=== PATIENT | female | born 1925 | race Caucasian/White ===

== ENCOUNTER 2016-05-31 15:00 | Inpatient (IN) | payer MEDICARE, OTHER ==
[2016-05-31] VITALS (7 sets, daily range): BP systolic 130–182; BP diastolic 70–89; PULSE 70–80; RESP 20–42; O2SAT 94–98
[~2016-05-31] VITALS: Ht 165.1 cm; Wt 62.7 kg
[~2016-05-31 15:00] MED LIST: CARV25T PO; COU1 PO; COU25 PO; HYDR1TAB PO; LATA2.5D5 OP; PRA20 PO; [UNRECOGNIZED DRUG - CODE] PO
[2016-05-31] MEDS ORDERED: Ondansetron 2 mg/mL 2 mL Inj IVPUSH ONE (15:35)
[2016-05-31] MEDS ORDERED: 0.9% Sodium Chloride 1,000 ML IV ONE (15:35)
[2016-05-31 15:46] LABS: BASOPHILS % (AUTO) 0.3 % (0-3); EOSINOPHILS % (AUTO) 0.1 % (0-5); MONOCYTES % (AUTO) 6.6 % (4-12); Mean Corpuscular Hemoglobin 30.3 pg (27.0-35.0); Mean Corpuscular Volume 95.9 fL (81-100); NEUTROPHILS % (AUTO) 86.6 % (40-74); Platelet Count 333 bil/L (150-400)
[2016-05-31 16:02] LABS: TROPONIN T < 0.010 ug/L (0.0-0.011)
[2016-05-31 16:05] LABS: Magnesium 1.7 mg/dL (1.6-2.6)
[2016-05-31 16:35] LABS: APPEARANCE,URINE HAZY (CLEAR,HAZY); COLOR,URINE YELLOW (YELLOW); OCCULT BLOOD,URINE NEGATIVE (NEGATIVE); PH,URINE 6.5 (5.0-8.0); UROBILINOGEN,URINE NORMAL (NORMAL)
--- NOTE | 2016-05-31 16:53 | DRSVH ---
PROCEDURE: X-RAY CHEST ONE VIEW, PORTABLE ([id number]) INDICATIONS: nausea, pitting edema. TECHNIQUE: One view of the chest was acquired. COMPARISON: [facility], , CHEST 2VW, 10/07/2008, 7:44. FINDINGS: Surgical changes and devices: Pacemaker. Lungs and pleura: Left basilar retrocardiac as well as right basilar opacities are present. Trace ple ural effusions are noted. Mediastinum: Mediastinal contours appear normal. Heart size is normal. Bones and chest wall: No suspicious bony lesions. Overlying soft tissues appear unremarkable. IMPRESSION: Bibasilar and retrocardiac opacities as above most suggestive of pneumonia. Dictated by: Lizbeth Harris M.D. on 05/31/2016 at 16:51 Approved by: Lizbeth Harris M.D. on 05/31/2016 at 16:51
--- NOTE | 2016-05-31 17:16 | ED.REPORT ---
HPI-General Illness Date of Service May 31, 2016 ED Provider: Heather Mosqueda MD 89 year old female presents to the ED via EMS from [facility] due to increased nausea and abd pain in the last 5 days. Pt was seen 2x in April for a perforated bowel. Two weeks ago she had a colostomy placed. She was discharged 5 days ago to [facility]. Since then she has had decreased PO intake. Pt's family is concerned that she is "going downhill". She has had no appetite. Pt has had minimal output from her colostomy. Her coloscopy was last changed at 1200 today. The family is also concerned due to a cough and increased edema to the lower extremities. Prior to this the patient was independent. Pt is currently being treated for diverticulitis. Pt is FULL CODE Nursing Notes Stated Complaint: NAUSEA Chief Complaint: Female Abdominal Pain Nursing Notes Reviewed: Yes Allergies: Coded Allergies: simvastatin (Verified Allergy, Mild, 05/31/16) CAUSED COUGHING. NOT A TRUE ALLERGY Scheduled Carvedilol (Carvedilol) 25 Mg Tablet 25 MG PO BID Cetirizine HCl (24Hour Allergy) 10 Mg Tablet 10 MG PO DAILY Ciprofloxacin (Cipro) 500 Mg Tablet 500 MG PO BID Latanoprost (Latanoprost) 2.5 Ml Drops 1 DROP AFFECT_EYE HS Losartan Potassium (Losartan Potassium) 25 Mg Tablet 25 MG PO BID Metronidazole (Flagyl) 500 Mg Tablet 500 MG PO TID Oxybutynin Chloride ER (Oxybutynin Chloride ER) 10 Mg Tab.er.24 10 MG PO DAILY Pravastatin (Pravastatin) 40 Mg Tablet 40 MG PO DAILY Ranitidine (Ranitidine) 300 Mg Tablet 300 MG PO DAILY Rivastigmine (Rivastigmine) 13.3 Mg/24 Hour Patch.td24 1 PATCH TD DAILY Trazodone (Trazodone) 50 Mg Tablet 50 MG PO HS Scheduled PRN ([Auralgan]) 14 ML AFFECT_EAR Q4H PRN PRN For Pain Acetaminophen (Acetaminophen) 325 Mg Tablet 650 MG PO Q4H PRN PRN fever/pain Hydrocodone-Acetaminophen 5-325 mg (Hydrocodone-Acetaminophen 5-325 mg) 1 Each Tablet 1 TAB PO Q6H PRN PRN For Pain Ondansetron ODT (Ondansetron ODT) 4 Mg Tab.rapdis 8 MG PO Q6H PRN PRN For Nausea General Time Seen by MD: 15:41 Chief Complaint Abdominal pain Hx Obtained From: Patient, Other family..., EMS Arrived By: Ambulance Onset Occurred: 5 days ago Symptom Duration: Since onset Location: : Abdomen Quality: Painful Severity: Current: Moderate Associated with: Reports: Cough Recent Healthcare: Recent doctor visit, Recent hospitalization Past Medical History Past Medical History Dementia Diverticulitis of large intestine with perforation and abscess Pt FULL CODE 05/31/15 Reports: Hypertension Reports: Atrial fibrillation Past Surgical History Colostomy Reports: Pacemaker insertion Smoking History Unknown if Ever Smoker Social History Other Social History: Good social support, Review of Systems Full Review of Systems Constitutional: Reports: Weakness - generalized Respiratory: Reports: Non-productive cough Cardiovascular: Reports: Edema GI: Reports: Abdominal pain, Nausea Complete sys rev & neg: except as marked. Physical Exam Vital Signs Vital Signs Date Time Temp Pulse Resp B/P Pulse Ox O2 Delivery O2 Flow Rate FiO2 05/31/16 17:15 70 159/73 97 Nasal Cannula 4 05/31/16 15:20 36.8 80 20 130/75 98 Nasal Cannula Initial VS: Reviewed ENT: Conjunctiva normal, No scleral icterus Skin: Warm, Dry General/Constitutional: Awake, Alert Head / Eyes: Atraumatic, Normocephalic, PERRL Neck: Atraumatic, Full range of motion Respiratory / Chest: No respiratory distress Coarse rhonchi bilat Cardiovascular: Heart rate NL, Regular rhythm, Heart sounds NL, Cap refill not delayed, Peripheral circulation NL Abdomen: No guarding, No rebound Tenderness/Guarding/Rebound: Positive: Tender diffuse Bowel Sounds / Distention: Positive: Bowel sounds absent, Distention moderate No ouput or air in colostomy bag for atleast 4 hours Lower Extremity / Pelvis / MS: Full range of motion LE edema bilat, symmetrical and non-pitting Neurologic: Oriented X3, No motor deficits Interpretation & Diagnostics Lab Results Interpretation Result Diagram: 06/01/16 0000 06/01/16 0225 Test 05/31/16 15:05 05/31/16 16:12 05/31/16 18:01 Magnesium Level 1.7mg/dL (1.6-2.6) Troponin T < 0.010ug/L (0.0-0.011) Pro-B-Type Natriuretic Peptide 5749pg/mL (0-738) Urine Color Yellow (YELLOW) Urine Appearance Hazy (CLEAR,HAZY) Urine pH 6.5 (5.0-8.0) Urine Specific [place] >1.030 (1.003-1.035) Urine Protein Tracemg/dL (NEG,TRACE) Urine Glucose (UA) Negativemg/dL (NEGATIVE) Urine Ketones Tracemg/dL (NEGATIVE) Urine Occult Blood Negative (NEGATIVE) Urine Nitrite Negative (NEGATIVE) Urine Bilirubin Negative (NEGATIVE) Urine Urobilinogen Normalmg/dL (NORMAL) Urine Leukocyte Esterase Negative (NEGATIVE) Urine RBC 0-2/hpf (0-2) Urine WBC 0-5/hpf (0-5) Urine Epithelial Cells Few/hpf (NONE-MOD) Urine Crystals None seen (NONE SEEN) Urine Bacteria Few/hpf (NONE-FEW) Urine Hyaline Casts Occasional/lpf (NONE) Urine Granular Casts None seen (NONE SEEN) Urine Waxy Casts None seen (NONE SEEN) Urine Red Blood Cell Casts None seen (NONE SEEN) Urine White Blood Cell Casts None seen (NONE SEEN) Urine Mucus Present (None Seen) Urine Trichomonas None seen (NONE SEEN) Urine Yeast None (NONE SEEN) Urinalysis Comment None Urine Culture Reflexed Not indicated Lactic Acid Level 1.2mmol/L (0.4-2.0) General Lab Results Interp 1: Labs reviewed ECG Interpretation ECG Interpretation: Paced with a rate of 88 with an underlying rhythm of 88. Time: 15:56 Interpreted by: ED physician X-Ray Chest Interpretation Chest Xray Interpretation: IMPRESSION: Bibasilar and retrocardiac opacities as above most suggestive of pneumonia. Dictated by: Lizbeth Harris M.D. on 05/31/2016 at 16:51 View: Portable, 1 view Interpretation / Wet Read by: Interpret - Radiologist Re-Eval/Medical Decision Med Decision/Clinical Course Imaging studies are consistent with bilateral pneumonia and pleural effusions. Beta natruretic peptide is elevated so there is a component of congestive heart failure most likely as well. Vital signs have been stable. The arterial blood gas is reassuring. IV antibiotics have infused. Careful hydration. There is no lactic acidosis present. Case discussed with the hospitalist. Patient will be admitted to the progressive care unit. Time of Eval: 17:30 Re-Evaluation/Progress Note: Pt is becoming increasingly SOB. Pt family updated of labs and imaging. Concern for Bilat PNA. Hospital acquired pneumonia. ABx started. Counseled Regarding: Diagnosis, Lab results Discharge & Departure Shift Change Sign-Out Patient Care Transferred: Yes Discussed Complaint(s): Yes Laboratory Evaluation: Lab evaluation discussed Imaging Studies: Imaging discussed Response to Therapy: Improved Primary Impression: Pleural effusion associated with pulmonary infection Additional Impressions: Congestive heart failure (CHF) Congestive heart failure type: unspecified congestive heart failure type Congestive heart failure chronicity: unspecified congestive heart failure chronicity Qualified Code: I50.9 - Heart failure, unspecified Pneumonia Pneumonia type: due to unspecified organism Laterality: bilateral Lung location: lower lobe of lung Qualified Code: J18.9 - Pneumonia, unspecified organism Referrals: Cori Wu DO (PCP) Scribe Attestation Portions of this note were transcribed by Key Hardin. I, (Dr. Mosqueda) personally performed the history, physical exam and medical decision-making; I reviewed and confirmed the accuracy of the information in the transcribed note. Signed by: Key Hardin. 05/31/2016, 1725 copies to: Cori Wu Shawna L MD May 31, 2016 17:16 Key Hardin May 31, 2016 17:45 Flaco Hadley DO May 31, 2016 19:54 Few/hpf (NONE-MOD) Urine Crystals None seen (NONE SEEN) Urine Bacteria Few/hpf (NONE-FEW) Urine Hyaline Casts Occasional/lpf (NONE) Urine Granular Casts None seen (NONE SEEN) Urine Waxy Casts None seen (NONE SEEN) Urine Red Blood Cell Casts None seen (NONE SEEN) Urine White Blood Cell Casts None seen (NONE SEEN) Urine Mucus Present (None Seen) Urine Trichomonas None seen (NONE SEEN) Urine Yeast None (NONE SEEN) Urinalysis Comment None Urine Culture Reflexed Not indicated Lactic Acid Level 1.2mmol/L (0.4-2.0) General Lab Results Interp 1: Labs reviewed ECG Interpretation ECG Interpretation: Paced with a rate of 88 with an underlying rhythm of 88. Time: 15:56 Interpreted by: ED physician X-Ray Chest Interpretation Chest Xray Interpretation: IMPRESSION: Bibasilar and retrocardiac opacities as above most suggestive of pneumonia. Dictated by: Lizbeth Harris M.D. on 05/31/2016 at 16:51 View: Portable, 1 view Interpretation / Wet Read by: Interpret - Radiologist Re-Eval/Medical Decision Med Decision/Clinical Course Imaging studies are consistent with bilateral pneumonia and pleural effusions. Beta natruretic peptide is elevated so there is a component of congestive heart failure most likely as well. Vital signs have been stable. The arterial blood gas is reassuring. IV antibiotics have infused. Careful hydration. There is no lactic acidosis present. Case discussed with the hospitalist. Patient will be admitted to the progressive care unit. Time of Eval: 17:30 Re-Evaluation/Progress Note: Pt is becoming increasingly SOB. Pt family updated of labs and imaging. Concern for Bilat PNA. Hospital acquired pneumonia. ABx started. Counseled Regarding: Diagnosis, Lab results Discharge & Departure Shift Change Sign-Out Patient Care Transferred: Yes Discussed Complaint(s): Yes Laboratory Evaluation: Lab evaluation discussed Imaging Studies: Imaging discussed Response to Therapy: Improved Primary Impression: Pleural effusion associated with pulmonary infection Additional Impressions: Congestive heart failure (CHF) Congestive heart failure type: unspecified congestive heart failure type Congestive heart failure chronicity: unspecified congestive heart failure chronicity Qualified Code: I50.9 - Heart failure, unspecified Pneumonia Pneumonia type: due to unspecified organism Laterality: bilateral Lung location: lower lobe of lung Qualified Code: J18.9 - Pneumonia, unspecified organism Referrals: Cori Wu DO (PCP) Scribe Attestation Portions of this note were transcribed by Key Hardin. I, (Dr. Mosqueda) personally performed the history, physical exam and medical decision-making; I reviewed and confirmed the accuracy of the information in the transcribed note. Signed by: Key Hardin. 05/31/2016, 7036 copies to: Cori Wu Shawna L MD May 31, 2016 17:16 Key Hardin May 31, 2016 17:45 Flaco Hadley DO May 31, 2016 19:54
[2016-05-31] MEDS ORDERED: Piperacillin-Tazo 3.375 Gm Inj 3.375 GM in Dextrose 5% Minibag Plus 50 ML IV ONE (17:40)
[2016-05-31] MEDS ORDERED: Vancomycin Dose per Pharmacist XX ONE (17:40)
[2016-05-31] MEDS ORDERED: levoFLOXacin Inj 750 MG in IV Premix 1 EACH IV ONE (17:40)
[2016-05-31] MEDS ORDERED: Vancomycin Inj 1,000 MG in IV Premix 1 EACH IV ONE (18:05)
--- NOTE | 2016-05-31 18:05 | ABG ---
DateTimeAnalyzed 18:00:00 -_ pH ____7.402 - 7.350 7.450 pCO2 ___43.1__ -mmHg 35.0 45.0 pO2 ___97.7__ -mmHg 69.0 116 HCO3- ___26.3__ -mmol/L 22.0 26.0 ABE ____1.8__ -mmol/L -2.0 2.0 tHb ___10.0__ -g/dL O2Hb ___95.7__ -% COHb ____1.1__ -% MetHb ____0.9__ -% sO2 ___97.7__ -% FIO2 ___30.0__ -% Drawn By MT - Date/Time Notified____ 18:05:00 -_ Oxygen Device 1 __CANNULA - Notified By MT - Notified Whom DR Laursen - B 762 -mmHg tO2 ___13.6__ -Vol% Shiv test _Positive -
--- NOTE | 2016-05-31 18:14 | DRSVH ---
PROCEDURE: CT ABDOMEN AND PELVIS WITH CONTRAST ([id number]) INDICATIONS: abdominal pain TECHNIQUE: After the administration of intravenous contrast, 5 mm thick sections acquired from the diaphragm to the symphysis. 5 mm coronal and sagittal reformats were acquired. For radiation dose reduction, the following was used: automated exposure control, adjustment of mA and/or kV according to patient siz e. COMPARISON: [facility], CR, ABDOMEN 1 VIEW, 05/20/2016, 9:54. [facility], CT, ABDOMEN/PEL VIS WITH CONTRAST, 05/17/2016, 15:26. [facility], CR, ABDOMEN ACUTE SERIES, 05/17/2016, 12:47. [facility], CT, ABDOMEN/PELVIS WITH CONTRAST, 03/19/2016, 12:30. [facility], CT, ABDOMEN/ PELVIS WITH CONTRAST, 03/17/2016, 13:32. [facility], CT, ABDOMEN/PELVIS WITH CONTRAST, 5, 10:15. [facility], RG, CT ABDOMEN/PELVIS WITH CONTRAST, 08/13/2004, 22:58. FINDINGS: Image quality: Limited by patient motion. ABDOMEN: Lung bases: Small left and [id number] sized right pleural fluid collection is noted. Consoli dation of the lung bases bilaterally which could represent compressive atelectasis, however infectiou s process can't be excluded by imaging alone. Please correlate with clinical and laboratory data. D ual chamber cardiac pacer leads are noted. Dense atherosclerotic calcifications are noted in the vis ualized coronary vasculature. Solid organs: Liver and spleen are normal in size and enhancement. Diffuse fatty infiltration the li kaylynn is noted. Gallbladder is contracted. Biliary system is non dilated. Pancreas enhances normally . No adrenal nodules. Kidneys demonstrate normal size and enhancement, without hydronephrosis. Peritoneum and bowel: Surgical changes compatible with partial colectomy and left lower quadrant col ostomy formation noted. Bowel loops demonstrate normal wall thickness and caliber. No free fluid or air. Nodes and vessels: No retroperitoneal or mesenteric adenopathy by size criteria. Aorta and inferior vena cava are normal in size. Scattered atherosclerotic ossifications are noted in the abdominal and pelvic vasculature. Miscellaneous: No ventral hernias. PELVIS: Genitourinary: Urinary bladder is decompressed by Santacruz catheter. 2.9 cm right adnexal cyst and 2.6 cm left adnexal cyst are noted. Miscellaneous: No inguinal hernias or adenopathy. Bones: No suspicious bony lesions. No vertebral body compression fractures. IMPRESSION: #1. Postsurgical changes compatible with partial colectomy and left lower quadrant colostomy formati on. 2. No free intraperitoneal fluid or air. 3. No dilated loops of bowel. 4. Atherosclerosis including the coronary vasculature. 5. Bilateral pleural effusions. 6. Bibasilar lung consolidation which could represent compressive atelectasis, however infectious pr ocess cannot be excluded please correlate with clinical and laboratory data. 7. Bilateral adnexal cysts. 8. No evidence of abscess. 9. Hepatic steatosis. Dictated by: Coleen Laughlin MD, PhD on 05/31/2016 at 18:12 Approved by: Coleen Laughlin MD, PhD on 05/31/2016 at 18:12
[2016-05-31] MEDS ORDERED: Alum-Mag Hydrox-Simeth 30 mL Suspension PO PRN ×2 (19:55→21:00)
[2016-05-31] MEDS ORDERED: Ondansetron 2 mg/mL 2 mL Inj IVPUSH PRN (20:00)
[2016-05-31] MEDS ORDERED: Acetaminophen IV 1,000 MG in IV Premix 1 EACH IV ONE (20:00)
[2016-05-31] MEDS ORDERED: AURALGAN AFFECT_EAR (20:06)
[2016-05-31] MEDS ORDERED: ACET325T51 PO (20:06)
[2016-05-31] MEDS ORDERED: HYDR-4003 PO (20:06)
[2016-05-31] MEDS ORDERED: ONDA4TAB12 PO (20:06)
[2016-05-31] MEDS: Ondansetron 2 mg/mL 2 mL Inj IVPUSH PRN ×2 (20:07→22:48)
[2016-05-31] MEDS ORDERED: LOSA25TA21 PO (20:08)
[2016-05-31] MEDS ORDERED: METR500T PO (20:08)
[2016-05-31] MEDS ORDERED: CIPR-231 PO (20:08)
[2016-05-31] MEDS ORDERED: TRAZ-115 PO (20:08)
[2016-05-31] MEDS ORDERED: CARV25TA2 PO (20:09)
[2016-05-31] MEDS ORDERED: LATA2.5D6 AFFECT_EYE (20:09)
[2016-05-31] MEDS ORDERED: OXYB10TA PO (20:13)
[2016-05-31] MEDS ORDERED: CETI-343 PO (20:13)
[2016-05-31] MEDS ORDERED: RIVA1PAT13 TD (20:13)
[2016-05-31] MEDS ORDERED: PRAV40TA PO (20:13)
[2016-05-31] MEDS ORDERED: RANI300T4 PO (20:13)
[2016-05-31] MEDS ORDERED: Furosemide 10 mg/mL 2 mL Inj ONE (20:40)
[2016-05-31] MEDS ORDERED: Albuterol 2.5 mg/3 mL Inhalation Solution NEB PRN (21:00)
[2016-05-31] MEDS ORDERED: Polyethylene Glycol (PEG) 17 Gm Powder PO PRN (21:00)
[2016-05-31 21:07] LABS: INR 2.15 ratio
--- NOTE | 2016-05-31 21:15 | NUR ---
Transfer Pt transferred from ED at 1999. Pt placed on telemetry, nam in-place, colour pale, semi-roque's position with SOB and audible course crackles. Pt on 4L of 02 via nasal canula. LOC decreased. Seen by resident and given orders for IV push lasix 20mg. Post lasix pt able to answer limited yes/no questions, crackles persist. Pt placed on non-rebreather as per resident at 15L/min. Able to breath deeper and slower. Colostomy empty.
[2016-05-31] MEDS ORDERED: Furosemide 10 mg/mL 2 mL Inj IVPUSH ONE (21:35)
[2016-05-31] MEDS ORDERED: hydrALAZINE 20 mg/mL Inj IV ONE (22:00)
[2016-05-31] MEDS ORDERED: Potassium Chloride Inj 30 MEQ in Dextrose 5% 100 ML IV ONE (22:35)
--- NOTE | 2016-05-31 23:13 | PCM.HPMED ---
Subjective Date of Service May 31, 2016 Primary Provider: Admitting Physician: Hector Espinosa MD Primary Care Physician: Cori Wu DO Attending Physician: Hector Espinosa MD Chief Complaint: Cough and dyspnea History of Present Illness: Patient is an 89-year-old female with history of diverticulitis s/p partial colectomy now with colostomy, dementia, and atrial fibrillation presenting with cough and dyspnea. The patient is accompanied at bedside by her family who is providing much of the history as the patient has dementia and is in some distress. At time of visit, the patient was just transferred from the ED and in [id number]-[id number] respiratory distress. Her oxygen saturation was in the mid-80s on 10L oxymask. Non-rebreather was placed on the patient and her oxygen saturations improved to the [id number]-wu-[id number] 90s. Lasix 20mg IV was given with nominal urine output and another 20mg IV was given. Per patient's , the patient was hospitalized at [facility] from 05/17/2016 to 05/26/2016 where he underwent hemicolectomy for diverticulitis. She was discharged to [facility] where she has been undergoing rehabilitation. Per patient's , the patient has been experiencing a cough and shortness of breath over the past 3-4 days. This has been progressively worse with production of thick sputum, prompting the patient's family to bring her to [facility] for further evaluation. The patient reportedly had associated clamminess and nausea, but otherwise did not have fever, chest pain, emesis. In the ED, vitals: 36.8, HR 80, RR 20 satting 98%, BP 130/75. Notable labs: Pro- BNP 5749, K 3.2. Chest x-ray shows Bibasilar and retrocardiac opacities. CT abdomen shows post surgical changes compatible with partial colectomy and left lower quadrant colostomy formation; bilateral pleural effusions, and bibasilar lung consolidation. In the ED, the patient was given vancomycin, Zosyn, levofloxacin and 1L NS. Review of Systems: A comprehensive review of systems was conducted with the patient and found to be negative except as above in the History of Present Illness. Allergies Coded Allergies: simvastatin (Verified Allergy, Mild, 05/31/16) CAUSED COUGHING. NOT A TRUE ALLERGY Home Medications Medication list from [facility]. Needs reconciliation. Do not see warfarin on the list. Carvedilol 25mg BID Losartan 25mg BID Oxybutynin 10mg daily Pravastatin 40mg daily Trazodone 50mg QHS PMH History of diverticulitis and perforated bowel s/p hemicolectomy History of C. diff Hypertension Atrial fibrillation Dyslipidemia Dementia . Surgical History Hemicolectomy Pacemaker placement Hysterectomy Neurectomy of the left foot AV jerrod ablation Family History Father at [id number] from lung cancer Mother at 91-pddbs-awj from lung disease Brother at 46-mjjfi-vro from [place] Social History Occupation: Retired Hx Alcohol Use: No Hx Substance Use: No Hx Tobacco Use: No Smoking Status: Unknown if Ever Smoker Living Arrangement: Detention Facility (rehabilitation at [facility]) Exam Vital Signs Vital Sign - Last Date Time Temp Pulse Resp B/P Pulse Ox O2 Delivery O2 Flow Rate FiO2 05/31/16 20:10 36.6 79 42 182/74 96 Nasal Cannula 4 Exam General: Patient supine in bed. Moderate distress. Well-developed, well- nourished, not interactive HEENT: Normocephalic, atraumatic. External ears without defect. Pupils equal, round, and reactive to light. Anicteric sclerae, moist conjunctivae, and no lid lag. Non-rebreather mask. Neck: Supple with full range of motion. No jugular venous distension. No bruits. No lymphadenopathy or thyromegaly. Cardiovascular: Regular rate and rhythm with no murmurs, rubs, or gallops appreciated Pulmonary: Anterior with coarse sounds bilaterally. Labored breathing with with use of accessory muscles. Abdomen: Bowel tones present. Soft, nontender, nondistended. Colostomy on left side. Extremities: Mild lower extremity non-pitting edema. No clubbing, cyanosis or lymphadenopathy appreciated. Skin: Normal temperature, turgor, and texture; no rash, ulcers, or subcutaneous nodules appreciated. Neurological: Cranial nerves grossly intact. Psychiatric: Unable to assess. Lab and Diagnostics Result Diagram: 05/31/16 1505 05/31/16 1505 X-Rays, CTs and MRIs Date of Service: 05/31/16 8534 PROCEDURE: CT ABDOMEN AND PELVIS WITH CONTRAST ([id number]) INDICATIONS: abdominal pain TECHNIQUE: After the administration of intravenous contrast, 5 mm thick sections acquired from the diaphragm to the symphysis. 5 mm coronal and sagittal reformats were acquired. For radiation dose reduction, the following was used: automated exposure control, adjustment of mA and/or kV according to patient size. COMPARISON: [facility], CR, ABDOMEN 1 VIEW, 05/20/2016, 9:54. [facility], CT, ABDOMEN/PELVIS WITH CONTRAST, 05/17/2016, 15:26. [facility] , CR, ABDOMEN ACUTE SERIES, 05/17/2016, 12:47. [facility], CT, ABDOMEN/ PELVIS WITH CONTRAST, 03/19/2016, 12:30. [facility], CT, ABDOMEN/PELVIS WITH CONTRAST, 03/17/2016, 13:32. [facility], CT, ABDOMEN/PELVIS WITH CONTRAST, 02/09/2015, 10:15. [facility], CT ABDOMEN/PELVIS WITH CONTRAST, 08/13/2004, 22:58. FINDINGS: Image quality: Limited by patient motion. ABDOMEN: Lung bases: Small left and wcsfj-wg-qpnshrhy sized right pleural fluid collection is noted. Consolidation of the lung bases bilaterally which could represent compressive atelectasis, however infectious process can't be excluded by imaging alone. Please correlate with clinical and laboratory data. Dual chamber cardiac pacer leads are noted. Dense atherosclerotic calcifications are noted in the visualized coronary vasculature. Solid organs: Liver and spleen are normal in size and enhancement. Diffuse fatty infiltration the liver is noted. Gallbladder is contracted. Biliary system is non dilated. Pancreas enhances normally. No adrenal nodules. Kidneys demonstrate normal size and enhancement, without hydronephrosis. Peritoneum and bowel: Surgical changes compatible with partial colectomy and left lower quadrant colostomy formation noted. Bowel loops demonstrate normal wall thickness and caliber. No free fluid or air. Nodes and vessels: No retroperitoneal or mesenteric adenopathy by size criteria. Aorta and inferior vena cava are normal in size. Scattered atherosclerotic ossifications are noted in the abdominal and pelvic vasculature. Miscellaneous: No ventral hernias. PELVIS: Genitourinary: Urinary bladder is decompressed by Santacruz catheter. 2.9 cm right adnexal cyst and 2.6 cm left adnexal cyst are noted. Miscellaneous: No inguinal hernias or adenopathy. Bones: No suspicious bony lesions. No vertebral body compression fractures. IMPRESSION: #1. Postsurgical changes compatible with partial colectomy and left lower quadrant colostomy formation. 2. No free intraperitoneal fluid or air. 3. No dilated loops of bowel. 4. Atherosclerosis including the coronary vasculature. 5. Bilateral pleural effusions. 6. Bibasilar lung consolidation which could represent compressive atelectasis, however infectious process cannot be excluded please correlate with clinical and laboratory data. 7. Bilateral adnexal cysts. 8. No evidence of abscess. 9. Hepatic steatosis. Dictated by: Coleen Laughlin MD, PhD on 05/31/2016 at 18:12 Approved by: Coleen Laughlin MD, PhD on 05/31/2016 at 18:12 ------ Assessment & Plan Patient is an 89-year-old female with history of diverticulitis s/p partial colectomy with colostomy, dementia, atrial fibrillation presenting with cough and dyspnea and admitted for pneumonia and acute CHF exacerbation. 1. Acute hypoxemic respiratory failure. Present on admission. Active -Patient desatted to 80s on oxymask; improved on non-rebreather with sats in mid -90s -Chest x-ray shows bilateral pleural effusion and consolidation suggestive of pneumonia -Etiology likely multifactorial, pneumonia, pleural effusion, CHF 2. Healthcare associated pneumonia. Present on admission. Active -Patient hospitalized at [facility] from 05/17/2016 - 05/26/2016, currently rehabilitating at [facility] -Levofloxacin, Zosyn and Vancomycin given in the ED -Pending studies: procalcitonin, legionella and strep pneumo ur ag, influenza screen, respiratory virus PCR, MRSA screen, sputum culture -Antibiotics with ceftaroline and levofloxacin. Narrow antibiotics with results of studies 3. Acute CHF exacerbation. Present on admission. Active -Echocardiogram from 03/2014 shows EF 60-65% -Pro-BNP 5749 -Lasix IV total of 40mg. Reassess in the morning -Chest x-ray in the AM -Echocardiogram pending 4. Bilateral pleural effusions. Present on admission. Active -Seen on CT abdomen -Possibly secondary to above -Chest x-ray in the AM 5. History of C. diff colitis s/p hemicolectomy. Present on admission. Presumed stable -Metronidazole and ciprofloxacin are listed on medication list. Need to verify when these were prescribed and intended course, duration 6. Hypertension, chronic. Present on admission -Continue home losartan, carvedilol 7. Atrial fibrillation, chronic. Present on admission -INR 2.15 -Need to verify medication with [facility]. Warfarin not listed on medication list -PT/INR in AM -Warfarin per pharmacy 8. Dyslipidemia, chronic. Present on admission -Continue home statin 9. Dementia, chronic. Present on admission 10. History of diverticulitis s/p partial colectomy now with colostomy. Present on admission -Routine colostomy care Patient Status: Patient is admitted under inpatient status with expected length of stay greater than 2 midnights due to severity of presenting symptoms, risk of adverse event, and complexity of treatment plan. GI Prophylaxis: Not indicated VTE Prophylaxis: Theraputic Anticoag with Warfarin Resuscitation Status: Limited Interventions Limited Interventions: Cardioversion/Defibrillation, Intubation w Mech Vent, BiPAP, Medications and IV Fluid Attending Statement Pt seen and examined independently, Plan and treatment discussed with resident. Agree with the above plan and assesment. Kal Ingram DO May 31, 2016 21:13 Hector Espinosa MD Jun 01, 2016 06:45
[2016-05-31] MEDS ORDERED: Potassium Chloride Inj 30 MEQ in Dextrose 5% 250 ML IV ONE (23:15)
[2016-05-31] MEDS ORDERED: Glucose 40% Oral Gel 15 Gm Tube PO PRN (23:20)
[2016-05-31] MEDS: Acetaminophen IV 1,000 MG in IV Premix 1 EACH IV PRN (23:48)
[2016-05-31] MEDS: Ceftaroline Inj 400 MG in Dextrose 5% 250 ML IV SCH (23:48)
[2016-06-01] VITALS (15 sets, daily range): BP systolic 111–158; BP diastolic 64–82; PULSE 80; RESP 16–24; O2SAT 96–100
[2016-06-01 05:02] LABS: BASOPHILS % (AUTO) 0.1 % (0-3); EOSINOPHILS % (AUTO) 0 % (0-5); MONOCYTES % (AUTO) 2.2 % (4-12); Mean Corpuscular Hemoglobin 30.8 pg (27.0-35.0); Mean Corpuscular Volume 95.4 fL (81-100); NEUTROPHILS % (AUTO) 95.9 % (40-74); Platelet Count 283 bil/L (150-400)
[2016-06-01 06:07] LABS: INR 2.29 ratio
[2016-06-01] MEDS: Acetaminophen IV 1,000 MG in IV Premix 1 EACH IV PRN ×2 (07:56→20:59)
[2016-06-01] MEDS: Insulin LISPRO 300 Unit/3 mL Inj SUBQ SCH ×4 (07:57→22:00)
--- NOTE | 2016-06-01 08:20 | PCM.PNMED ---
Subjective Date of Service Jun 01, 2016 Subjective She has a lot of neck and posterior head pain. Positive cough mostly nonproductive. She feels fairly comfortable on her oxygen. She does have some abdominal pain. Less edema today. Exam Vital Signs Vital Sign - Last Date Time Temp Pulse Resp B/P Pulse Ox O2 Delivery O2 Flow Rate FiO2 06/01/16 07:55 36.2 80 20 124/74 100 Nasal Cannula 50.00 50 Intake and Output 05/31/16 05/31/16 06/01/16 Cumulative From/Thru 15:00 23:00 07:00 05/31/16 15:20 - 06/01/16 06:41 Intake Total 1000 ml 660 ml 1660 ml Output Total 2300 ml 2300 ml Balance 1000 ml -1640 ml -640 ml Intake Oral 0 ml 0 ml IV Total 1000 ml 660 ml 1660 ml Output Urine Total 2300 ml 2300 ml Exam She is alert, no acute distress. Fluent speech. Normal skull. Anicteric sclerae. Neck is supple with JVP Lungs scattered rhonchi and minimal expiratory wheezing and decreased sounds in the bases. Heart is regular without murmur Abdomen is somewhat tender without guarding or rebound, nondistended. Extremities with 1+ edema. Good pedal pulses Skin is free of rash or lesions IVs and Medications Medications Reviewed: Medications were reviewed in detail Lab and Diagnostics Result Diagram: 06/01/16 0000 06/01/16 0225 X-Rays, CTs and MRIs Date of Service: 05/31/16 1717 PROCEDURE: CT ABDOMEN AND PELVIS WITH CONTRAST ([id number]) INDICATIONS: abdominal pain TECHNIQUE: After the administration of intravenous contrast, 5 mm thick sections acquired from the diaphragm to the symphysis. 5 mm coronal and sagittal reformats were acquired. For radiation dose reduction, the following was used: automated exposure control, adjustment of mA and/or kV according to patient size. COMPARISON: [facility], , ABDOMEN 1 VIEW, 05/20/2016, 9:54. [facility], CT, ABDOMEN/PELVIS WITH CONTRAST, 05/17/2016, 15:26. [facility], ABDOMEN ACUTE SERIES, 05/17/2016, 12:47. [facility], CT, ABDOMEN/ PELVIS WITH CONTRAST, 03/19/2016, 12:30. [facility], CT, ABDOMEN/PELVIS WITH CONTRAST, 03/17/2016, 13:32. [facility], CT, ABDOMEN/PELVIS WITH CONTRAST, 02/09/2015, 10:15. [facility], [facility], CT ABDOMEN/PELVIS WITH CONTRAST, 08/13/2004, 22:58. FINDINGS: Image quality: Limited by patient motion. ABDOMEN: Lung bases: Small left and dtuei-cl-rjznhzid sized right pleural fluid collection is noted. Consolidation of the lung bases bilaterally which could represent compressive atelectasis, however infectious process can't be excluded by imaging alone. Please correlate with clinical and laboratory data. Dual chamber cardiac pacer leads are noted. Dense atherosclerotic calcifications are noted in the visualized coronary vasculature. Solid organs: Liver and spleen are normal in size and enhancement. Diffuse fatty infiltration the liver is noted. Gallbladder is contracted. Biliary system is non dilated. Pancreas enhances normally. No adrenal nodules. Kidneys demonstrate normal size and enhancement, without hydronephrosis. Peritoneum and bowel: Surgical changes compatible with partial colectomy and left lower quadrant colostomy formation noted. Bowel loops demonstrate normal wall thickness and caliber. No free fluid or air. Nodes and vessels: No retroperitoneal or mesenteric adenopathy by size criteria. Aorta and inferior vena cava are normal in size. Scattered atherosclerotic ossifications are noted in the abdominal and pelvic vasculature. Miscellaneous: No ventral hernias. PELVIS: Genitourinary: Urinary bladder is decompressed by Santacruz catheter. 2.9 cm right adnexal cyst and 2.6 cm left adnexal cyst are noted. Miscellaneous: No inguinal hernias or adenopathy. Bones: No suspicious bony lesions. No vertebral body compression fractures. IMPRESSION: #1. Postsurgical changes compatible with partial colectomy and left lower quadrant colostomy formation. 2. No free intraperitoneal fluid or air. 3. No dilated loops of bowel. 4. Atherosclerosis including the coronary vasculature. 5. Bilateral pleural effusions. 6. Bibasilar lung consolidation which could represent compressive atelectasis, however infectious process cannot be excluded please correlate with clinical and laboratory data. 7. Bilateral adnexal cysts. 8. No evidence of abscess. 9. Hepatic steatosis. Dictated by: Coleen Laughlin MD, PhD on 05/31/2016 at 18:12 Approved by: Coleen Laughlin MD, PhD on 05/31/2016 at 18:12 ------ Assessment & Plan Patient is an 89-year-old female with history of diverticulitis s/p partial colectomy with colostomy, dementia, atrial fibrillation presenting with cough and dyspnea and admitted for pneumonia and acute CHF exacerbation. 1. Acute hypoxemic respiratory failure. Present on admission. Active. This appears to be multifactorial. She is Flu A positive. There is a possible pneumonia which may well be viral. She also has evidence of acute and chronic diastolic heart failure with volume overload. -Patient desatted to 80s on oxymask; improved on non-rebreather with sats in mid -90s She is doing well with saturations of 100% and a normal rate of respiration and high flow oxygen. 2. Healthcare associated pneumonia. Present on admission. Active -Patient hospitalized at [facility] from 05/17/2016 - 05/26/2016, currently rehabilitating at [facility] -Levofloxacin, Zosyn and Vancomycin given in the ED -Pending studies: procalcitonin, legionella and strep pneumo ur ag, influenza screen, respiratory virus PCR, MRSA screen, sputum culture -Antibiotics with ceftaroline and levofloxacin. Narrow antibiotics with results of studies, studies are still pending at this point. 3. Acute on chronic diastolic CHF exacerbation. Present on admission. Active -Echocardiogram from 03/2014 shows EF 60-65% -Pro-BNP 5749 -Lasix IV total of 40mg. Reassess in the morning -Chest x-ray in the AM -Echocardiogram pending 4. Bilateral pleural effusions. Present on admission. Active -Seen on CT abdomen -Possibly secondary to above -Chest x-ray in the AM 5. History of C. diff colitis s/p hemicolectomy. Present on admission. Presumed stable -Metronidazole and ciprofloxacin are listed on medication list. Need to verify when these were prescribed and intended course, duration 6. Hypertension, chronic. Present on admission -Continue home losartan, carvedilol 7. Atrial fibrillation, chronic. Present on admission -INR 2.15 -Need to verify medication with [facility]. Warfarin not listed on medication list -PT/INR in AM -Warfarin per pharmacy 8. Dyslipidemia, chronic. Present on admission -Continue home statin 9. Dementia, chronic. Present on admission 10. History of diverticulitis s/p partial colectomy now with colostomy. Present on admission -Routine colostomy care Patient Status: Patient is admitted under inpatient status with expected length of stay greater than 2 midnights due to severity of presenting symptoms, risk of adverse event, and complexity of treatment plan. Pain Evaluation: Adequate Pain Control GI Prophylaxis: Not indicated VTE Prophylaxis: Theraputic Anticoag with Warfarin Resuscitation Status: Limited Interventions Limited Interventions: Cardioversion/Defibrillation, Intubation w Mech Vent, BiPAP, Medications and IV Fluid Time spent 25 minute Shiv Child MD Jun 01, 2016 08:20
--- NOTE | 2016-06-01 09:01 | DRSVH ---
PROCEDURE: X-RAY CHEST ONE VIEW, PORTABLE ([id number]) INDICATIONS: pna, pleural effusion, dyspnea TECHNIQUE: One view of the chest was acquired. COMPARISON: 05/31/2016 FINDINGS: Surgical changes and devices: Permanent pacemaker.. Lungs and pleura: Small pleural effusions right greater than left. Bilateral lower lobe atelectasis/c onsolidation, stable to slightly increased in severity. Mediastinum: Mediastinal contours appear normal. Heart size is normal. Aortic calcifications. Bones and chest wall: No suspicious bony lesions. Overlying soft tissues appear unremarkable. IMPRESSION: Interval worsening of bilateral pulmonary and pleural densities still compatible with pne umonia or developing ARDS. Dictated by: Aarno Denney M.D. on 06/01/2016 at 8:59 Approved by: Aaron Denney M.D. on 06/01/2016 at 8:59
[2016-06-01] MEDS ORDERED: Potassium Chloride 20 mEq SR Tablet PO ONE (10:20)
--- NOTE | 2016-06-01 11:32 | NUR ---
Patient comes from [facility] and now is requesting to have referrals sent to [facility] and [facility]. SAND CASTER is aware of request. Faxed clinicals to Connor at [facility].
[2016-06-01] MEDS: Ondansetron 2 mg/mL 2 mL Inj IVPUSH PRN ×2 (13:15→22:52)
[2016-06-01] MEDS: Ceftaroline Inj 400 MG in Dextrose 5% 250 ML IV SCH (13:15)
--- NOTE | 2016-06-01 13:27 | DRSVH ---
[facility] [address] [place] [address] Echocardiogram Report Name: MAXI AGUIAR Date: 06/01/2016 He ight: 67 in Hospital Exam Location: [facility] We ight: 157 lb Gender: Female BS A: 1.8 m2 : 1925 Age: 89 yrs BP : 111/65 mmHg Reason For Study: SOB, PLEURAL EFF. PNEUMONIA History: AFIB,PACEMAKER Ordering Physician: HOSPITALIST [facility] Performed By: Nuvia Hart Referring Physician: DR. Harris BRYANT, DR. Gordo PATHAK Interpretation Summary 1. Normal left ventricular size and wall thickness with overall preserved systolic function. 2. Normal right ventricular size and systolic function. 3. No significant valvular pathology appreciated. 4. Bilateral pleural effusions Compared to the previous study of 04/16/14, pleural effusions are now present Procedure: A two-dimensional transthoracic echocardiogram with color flow and Doppler was performed. The study quality was technically adequate. Comparison is made with the echocardiogram of 04-16-2014. The patient was coughing through out the study. The patient has a paced rhythm. Left Ventricle: The left ventricle is normal in size. There is normal left ventricular wall thickness. The left ventricular ejection fraction is grossly normal. Septal motion is consistent with conduction abnormality. There are no obvious focal wall motion abnormalities noted but poor endocardial definition reduces the sensitivity for the detection of such. Right Ventricle: The right ventricle is normal size. The right ventricular systolic function is normal. Atria: Mild to moderately dilated left atrium. The right atrium is mildly dilated. There is no Doppler evidence for an atrial septal defect. Mitral Valve: There is mild mitral annular calcification. There is mild mitral regurgitation. Aortic Valve: The aortic valve is trileaflet. The aortic valve opens well. No aortic regurgitation is present. Tricuspid Valve: The tricuspid valve leaflets are thin and pliable. There is mild tricuspid regurgitation. Right ventricular systolic pressure is estimated to be 29 mmHg plus the clinically estimated CVP which cannot be estimated on this exam. Pulmonic Valve: The pulmonic valve leaflets are thin and pliable; valve motion is normal. There is a trace or physiologic amount of pulmonic regurgitation. Great Vessels: The aortic root is normal size. The ascending aorta is at the upper limits of normal in size. There has been no significant change since the previous study. The pulmonary artery is normal size. The IVC has a measurement of 18 mm. Unable to evaluate for inspirational collapse. Pericardium/ Pleura There is no pericardial effusion. Bilateral pleural effusion. MMode/2D Measurements & Calculations LVIDd: 3.9 cm LA dimension: 4.1 cm RA long axis LVOT diam LVIDs: 2.9 cm FS: 25.4 % LA A2 area: 24.8 cm RA area AoV Opening EPSS: 0.51 cm LA A4 area: 19.5 cm IVSd: 1.1 cm LA length (vol): 5.3 cm: 20.9 cm Ao root diam LVPWd: 0.97 cm LA vol: 77.8 ml RA vol LA vol index : 66.4 ml asc Aorta RA Diam: 3.5 cm : 37.2 mm/ IVC diam: 1.8 cm RVDd major RVDd minor : 2.7 cm LV manuel. diameter/BSA LV sys. diameter/BSA (cm/m^2): 2.2 (cm/m^2): 1.6 Doppler Measurements & Calculations Ao V2 max MV E max mark Med Peak E' Mark TR max mark : 91.0 cm/sec : 96.2 cm/sec : 269.4 cm/sec Ao max PG E/E' med: 19.8 TR max P.0 mmHg : 3.3 mmHg Lat Peak E' Mark PA V2 max: 57.0 cm/sec Ao mean PG PA mean P.68 mmHg E/E' lat: 13.5 PA Accel Time LVOT Max Mark : 0.13 sec : 72.4 cm/sec JAYESH(I,D): 1.9 cm sev ratio Ao V2 mean LV V1 max PG PA V2 mean JAYESH indexed to BSA : 62.2 cm/sec : 38.9 cm/sec (cm^2/m^2): 1.1 Ao V2 VTI LV V1 VTI : 13.3 cm JAYESH(V,D): 2.1 cm2 Reading Physician:01:26 PM
--- NOTE | 2016-06-01 16:22 | NUR ---
Social Work: Initial Assessment D: Per EMR review, pt is an 89 year old female admitted for HCA, Pneumonia, Bilateral with PE. Pt is [facility]; no LTC insurance or VA benefits. PCP is Cori Wu DO. NOK is Geraldo Pollock, spouse, . Readmit score is moderate, 3/8. Advanced directives requested from family. ENGLISH DIVISION CHAIR met with pt and family at bedside. Sw role explained. See initial assessment. Pt comes from [facility] in a rehab bed. Pt previously was living with her spouse in [place]. Pt has baseline dementia. Family states they would like to discuss whether they would like pt to return to [facility] or go to [facility] or [facility]. t/c to [facility], spoke with Trish Mcclellan, who can accept the pt back with Dr. Martins to follow. A: Pt who will likely require continued strengthening and mobility training at d/c P: Anticipate discharge either back to [facility] or to [facility]; ENGLISH DIVISION CHAIR to provide referral to these facilities if it is family preference. ENGLISH DIVISION CHAIR to continue to follow. MAN [place] Addendum: 06/01/16 at 1626 by ANGIE FERREIRA Amended: Links added.
--- NOTE | 2016-06-01 16:55 | NUR ---
Pain/Nausea/Resp Patient a/o to self and family, but forgetful. Patient c/o headache and back pain and nausea. Patient given IV Tylenol with moderate effect for pain and Zofran given x 1 for nausea, no emesis but patient declined diet today. Patient able to take po meds this afternoon with family encouragement. Abd round semi soft, hyperactive bowel tones. Colostomy inplace, patient not passing flatus or stool this shift. Midline incision drsg c/d/i. O2 HFNC decreased to 45L @ 40 % per RTC this afternoon O2 sat 98-99%, RR 20-24 min. Will cont poc.
[2016-06-01] MEDS ORDERED: 0.9% Sodium Chloride 250 ML ONE (20:52)
[2016-06-02] VITALS (9 sets, daily range): BP systolic 140–171; BP diastolic 79–97; PULSE 60–80; RESP 16–20; O2SAT 94–98
[2016-06-02] MEDS: Ceftaroline Inj 400 MG in Dextrose 5% 250 ML IV SCH ×3 (00:55→23:34)
[2016-06-02] MEDS ORDERED: Acetaminophen IV 1,000 MG in IV Premix 1 EACH IV PRN (03:25)
[2016-06-02 04:12] LABS: INR 2.21 ratio
--- NOTE | 2016-06-02 04:42 | NUR ---
Pain/Turn C/O Pai /10 IV tylenol x 2 , HI flow , 45 L, 40 %, Tele V-Paced A-flutter . Incision CDI, Pt pain RT back and Headach, Gave Zofran 8 Mg IV x1 for Nausea. One touch, 84 , no coverage. Non-complaint on turning Addendum: 06/02/16 at 0451 by DONI FARLEY RN Santacruz draining dark yellow urine to gravity, Colostomy small amout of liquid stool
[2016-06-02] MEDS ORDERED: Furosemide 10 mg/mL 4 mL Inj IVPUSH ONE ×2 (06:00→13:35)
[2016-06-02] MEDS: Insulin LISPRO 300 Unit/3 mL Inj SUBQ SCH ×4 (08:00→22:00)
[2016-06-02 08:32] LABS: Mean Corpuscular Hemoglobin 30.4 pg (27.0-35.0); Mean Corpuscular Volume 95.1 fL (81-100)
[2016-06-02] MEDS: MetoCLOpramide 5 mg/mL 2 mL Inj IVPUSH PRN ×2 (09:03→22:34)
--- NOTE | 2016-06-02 09:50 | DRSVH ---
PROCEDURE: X-RAY CHEST ONE VIEW, PORTABLE ([id number]) INDICATIONS: dyspnea TECHNIQUE: One view of the chest was acquired. COMPARISON: [facility], CR, XR CHEST 1VW (PORTABLE), 06/01/2016, 5:49. FINDINGS: Surgical changes and devices: Cardiac pacer Lungs and pleura: Overall stable examination since yesterday. Bibasilar patchy consolidative opacitie s are unchanged. No new focal consolidation. No pneumothorax. Mediastinum: Mediastinal contours appear normal. Heart size is normal. Bones and chest wall: No suspicious bony lesions. Overlying soft tissues appear unremarkable. IMPRESSION: Grossly stable examination since yesterday Dictated by: Denis Moses M.D. on 06/02/2016 at 9:47 Approved by: Denis Moses M.D. on 06/02/2016 at 9:48
--- NOTE | 2016-06-02 10:30 | PCM.PNMED ---
Subjective Date of Service Jun 02, 2016 Subjective She continues to be dyspneic and lethargic. She is on high flow nasal cannula oxygen. She has had a dry cough and some wheezing. No fevers or chills. She does have nausea, refractory to Zofran No chest pain. No abdominal pain or diarrhea. Exam Vital Signs Vital Sign - Last Date Time Temp Pulse Resp B/P Pulse Ox O2 Delivery O2 Flow Rate FiO2 06/02/16 09:52 80 06/02/16 08:00 36.3 16 158/87 94 HI FLOW 45 06/01/16 23:54 35 Intake and Output 06/01/16 06/01/16 06/02/16 Cumulative From/Thru 15:00 23:00 07:00 05/31/16 15:20 - 06/02/16 06:00 Intake Total 350 ml 20 ml 2030 ml Output Total 400 ml 500 ml 3200 ml Balance -50 ml -480 ml -1170 ml Intake Oral 0 ml 20 ml 20 ml IV Total 350 ml 2010 ml Output Urine Total 400 ml 500 ml 3200 ml # Bowel Movements 0 0 Exam The patient is listless but alert and oriented. She is responsive. Anicteric sclera Normal skull Neck is supple normal JVP Lungs ~4 breath sounds, expiratory wheezing and scattered rhonchi Heart is regular without murmur Abdomen is soft nontender. Extremities with 1+ edema. Good pedal pulses IVs and Medications Medications Reviewed: Medications were reviewed in detail Lab and Diagnostics Result Diagram: 06/02/16 0240 06/02/16 0240 Assessment & Plan Patient is an 89-year-old female with history of diverticulitis s/p partial colectomy with colostomy, dementia, atrial fibrillation presenting with cough and dyspnea and admitted for pneumonia and acute CHF exacerbation. 1. Acute hypoxemic respiratory failure. Present on admission. Active. This appears to be multifactorial. She is Flu A positive. There is a possible pneumonia which may well be viral. She also has evidence of acute and chronic diastolic heart failure with volume overload. -Patient desatted to 80s on oxymask; improved on non-rebreather with sats in mid -90s She is doing well with saturations of 100% and a normal rate of respiration and high flow oxygen. 2. Healthcare associated pneumonia. Present on admission. Active -Patient hospitalized at [facility] from 05/17/2016 - 05/26/2016, currently rehabilitating at [facility] -Levofloxacin, Zosyn and Vancomycin given in the ED. -Pending studies: procalcitonin, legionella and strep pneumo ur ag, influenza screen, respiratory virus PCR, MRSA screen, sputum culture -Antibiotics with ceftaroline and levofloxacin. Narrow antibiotics with results of studies, studies are still pending at this point. 3. Acute on chronic diastolic CHF exacerbation. Present on admission. Active -Echocardiogram from 03/2014 shows EF 60-65% -Pro-BNP 5749 -Lasix IV total of 40mg. Reassess in the morning -Chest x-ray in the AM -Echocardiogram on June 01 reveals normal ventricular function and pressures. No valvular disease. 4. Bilateral pleural effusions. Present on admission. Active -Seen on CT abdomen -Possibly secondary to above -Chest x-ray in the AM 5. History of C. diff colitis s/p hemicolectomy. Present on admission. Presumed stable -Metronidazole and ciprofloxacin are listed on medication list. Need to verify when these were prescribed and intended course, duration. Follow clinically for any evidence of diarrhea. 6. Hypertension, chronic. Present on admission -Continue home losartan, carvedilol 7. Atrial fibrillation, chronic. Present on admission -INR 2.15 -Need to verify medication with [facility]. Warfarin not listed on medication list -PT/INR in AM -Warfarin per pharmacy 8. Dyslipidemia, chronic. Present on admission -Continue home statin 9. Dementia, chronic. Present on admission 10. History of diverticulitis s/p partial colectomy now with colostomy. Present on admission -Routine colostomy care Patient Status: Patient is admitted under inpatient status with expected length of stay greater than 2 midnights due to severity of presenting symptoms, risk of adverse event, and complexity of treatment plan. Pain Evaluation: Adequate Pain Control GI Prophylaxis: Not indicated VTE Prophylaxis: Theraputic Anticoag with Warfarin VTE Mechanical Devices: Intermittant Pneumatic CD Resuscitation Status: Limited Interventions Limited Interventions: Cardioversion/Defibrillation, Intubation w Mech Vent, BiPAP, Medications and IV Fluid Time spent 25 minutes Shiv Child MD Jun 02, 2016 10:30 9. Hepatic steatosis. Dictated by: Coleen Laughlin MD, PhD on 05/31/2016 at 18:12 Approved by: Coleen Laughlin MD, PhD on 05/31/2016 at 18:12 ------ Assessment & Plan Patient is an 89-year-old female with history of diverticulitis s/p partial colectomy with colostomy, dementia, atrial fibrillation presenting with cough and dyspnea and admitted for pneumonia and acute CHF exacerbation. 1. Acute hypoxemic respiratory failure. Present on admission. Active. This appears to be multifactorial. She is Flu A positive. There is a possible pneumonia which may well be viral. She also has evidence of acute and chronic diastolic heart failure with volume overload. -Patient desatted to 80s on oxymask; improved on non-rebreather with sats in mid -90s She is doing well with saturations of 100% and a normal rate of respiration and high flow oxygen. 2. Healthcare associated pneumonia. Present on admission. Active -Patient hospitalized at [facility] from 05/17/2016 - 05/26/2016, currently rehabilitating at [facility] -Levofloxacin, Zosyn and Vancomycin given in the ED. -Pending studies: procalcitonin, legionella and strep pneumo ur ag, influenza screen, respiratory virus PCR, MRSA screen, sputum culture -Antibiotics with ceftaroline and levofloxacin. Narrow antibiotics with results of studies, studies are still pending at this point. 3. Acute on chronic diastolic CHF exacerbation. Present on admission. Active -Echocardiogram from 03/2014 shows EF 60-65% -Pro-BNP 5749 -Lasix IV total of 40mg. Reassess in the morning -Chest x-ray in the AM -Echocardiogram on June 01 reveals normal ventricular function and pressures. No valvular disease. 4. Bilateral pleural effusions. Present on admission. Active -Seen on CT abdomen -Possibly secondary to above -Chest x-ray in the AM 5. History of C. diff colitis s/p hemicolectomy. Present on admission. Presumed stable -Metronidazole and ciprofloxacin are listed on medication list. Need to verify when these were prescribed and intended course, duration. Follow clinically for any evidence of diarrhea. 6. Hypertension, chronic. Present on admission -Continue home losartan, carvedilol 7. Atrial fibrillation, chronic. Present on admission -INR 2.15 -Need to verify medication with [facility]. Warfarin not listed on medication list -PT/INR in AM -Warfarin per pharmacy 8. Dyslipidemia, chronic. Present on admission -Continue home statin 9. Dementia, chronic. Present on admission 10. History of diverticulitis s/p partial colectomy now with colostomy. Present on admission -Routine colostomy care Patient Status: Patient is admitted under inpatient status with expected length of stay greater than 2 midnights due to severity of presenting symptoms, risk of adverse event, and complexity of treatment plan. Pain Evaluation: Adequate Pain Control GI Prophylaxis: Not indicated VTE Prophylaxis: Theraputic Anticoag with Warfarin VTE Mechanical Devices: Intermittant Pneumatic CD Resuscitation Status: Limited Interventions Limited Interventions: Cardioversion/Defibrillation, Intubation w Mech Vent, BiPAP, Medications and IV Fluid Time spent 25 minutes Shiv Child MD Jun 02, 2016 10:30
[2016-06-02] MEDS: levoFLOXacin Inj 750 MG in IV Premix 1 EACH IV SCH (10:49)
--- NOTE | 2016-06-02 12:08 | NUR ---
NUTRITION ASSESSMENT: ASSESS:89 YO female admitted with pneumonia and CHF exacerbation. She is slowly improving; however, she has been refusing her full liquid diet due to ongoing nausea x 2 D. Code status: limited interventions. PMHx:Diverticulitis with perforated bowel status post hemicolectomy, CHF, HTN, dyslipidemia, A-fib, dementia. DIET:Full liquid. PO intake minimal x 2 D. LABS: Reviewed. Glu 117, Ca 8.4, Alb 2.7. MEDICATIONS: Reviewed. Coumadin, Reglan, Insulin. NUTRITION FOCUSED PHYSICAL ASSESSMENT: GI symptoms / stool: Small amount liquid stool via colostomy.Rony: 11. Skin Integrity: No issues reported. ANTHROPOMETRICS: Current Wt: 72.0 kgBMI: 26.0 kg/mw.Admit weight: 65.91 kg. IBW: 56.8 kg (126.7% IBW) ESTIMATED NEEDS (BMI): Calories: 1584 - 1800 kcal (22 - 25 kcal / kg BW) Protein: 85 - 102 g protein (1.5 - 1.8 g / kg IBW) NUTRITION DIAGNOSIS: 1) Inadequate oral intake related to inability to consume sufficient energy, as evidenced by minimal PO intake x 2 D. INTERVENTION: 1) Will add Ensure or Magic Cup to trays to increase calories. MONITOR/EVALUATE: Diet advance / tolerance, PO intake, labs, GI/nutrition status. Follow up per moderate nutrition risk guidelines.
[2016-06-02] MEDS: Ondansetron 2 mg/mL 2 mL Inj IVPUSH PRN (12:50)
--- NOTE | 2016-06-02 13:55 | NUR ---
[facility] Signed
--- NOTE | 2016-06-02 14:07 | NUR ---
Social Work Continued Discharge Planning D: Per EMR review, pt is an 89 year old female admitted for HCA, Pneumonia, Bilateral with PE on 05/31/16. NOK is Geraldo Pollock, spouse, . 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 Pt comes from [facility] in a rehab bed. Pt previously was living with her spouse in [place]. Pt has baseline dementia. Pt's family wishes questions about care/treatment go through Pt's as DPOA. Pt can present well with her dementia but ultimately will not likely provide accurate/truthful information. Pt is accepted back to [facility] with Dr. Martins to follow. Pt's spouse lives in [place] and would like referrals sent to [facility]. JAY spoke with Connor Gonzalez at [facility] and provided referral. Clinicals faxed. A: Pt who will likely require continued strengthening and mobility training at d/c to SNF P: Anticipate discharge either back to [facility] (A) or to [facility], referred and clinicals faxed. Pt's family to determine SNF location at time of discharge pending bed availability and acceptance. MAN Sorenson
--- NOTE | 2016-06-02 18:05 | NUR ---
Pain/Nausea/Colostomy Patient a/o x 2-3, but forgetful. Patient c/o nausea no emesis and back pain. Meds given with moderate relief. Patient feeling mildly better this evening, but cont to take in min full liquid diet. Abd soft, tender with positive bowel tones. Midline incision with hanny, c/d/i. Colostomy putting out loose brown stool. Santacruz patent clear yellow uop. Family at bedside assisting with care.
[2016-06-03] VITALS (11 sets, daily range): BP systolic 107–145; BP diastolic 53–82; PULSE 80–81; RESP 16–18; O2SAT 97–99
--- NOTE | 2016-06-03 03:04 | NUR ---
Tele/nam/Nausea Tele: Vpaced Flutter 80. O2 Saturation in high 90's on 3L O2 per NC. Requested Reglan x1 this shift for Nausea, denies pain on assessment. C/O feeling like she needed to urinate reminded her of nam . Nam patent , draining pale yellow urine to gravity. A&O to place and self.
[2016-06-03 03:07] LABS: Mean Corpuscular Hemoglobin 30.3 pg (27.0-35.0); Mean Corpuscular Volume 92.9 fL (81-100)
[2016-06-03 03:21] LABS: INR 2.77 ratio
[2016-06-03] MEDS ORDERED: KCl 40 mEq/500 mL D5W (K < 3 & Creat <2) IV SCH (04:10)
[2016-06-03] MEDS ORDERED: 0.9% Sodium Chloride 250 ML ONE (04:20)
[2016-06-03] MEDS ORDERED: POTASSIUM CHLORIDE 20 MEQ/15 ML PO ONE (05:10)
[2016-06-03] MEDS: Potassium Chloride 20 mEq/15 mL Oral Soln (K < 3 Creat <2) PO SCH ×2 (05:25→08:08)
[2016-06-03] MEDS: Insulin LISPRO 300 Unit/3 mL Inj SUBQ SCH ×4 (08:00→21:34)
[2016-06-03] MEDS: Ondansetron 2 mg/mL 2 mL Inj IVPUSH PRN (08:04)
[2016-06-03] MEDS: Ceftaroline Inj 400 MG in Dextrose 5% 250 ML IV SCH ×2 (11:08→21:35)
--- NOTE | 2016-06-03 11:14 | PCM.PNMED ---
Subjective Date of Service Jun 03, 2016 Subjective From a respiratory standpoint she feels better. Less shortness of breath. Less cough. She still feels fatigued and has intermittent nausea. She also has early satiety and anorexia. No abdominal distention. No emesis. Exam Vital Signs Vital Sign - Last Date Time Temp Pulse Resp B/P Pulse Ox O2 Delivery O2 Flow Rate FiO2 06/03/16 09:56 80 06/03/16 08:35 Supplement Oxygen 06/03/16 07:48 36.5 16 141/80 98 3.00 06/02/16 13:16 30 Intake and Output 06/02/16 06/02/16 06/03/16 Cumulative From/Thru 15:00 23:00 07:00 05/31/16 15:20 - 06/03/16 05:59 Intake Total 580 ml 350 ml 2960 ml Output Total 2350 ml 2400 ml 7950 ml Balance -1770 ml -2050 ml -4990 ml Intake Oral 180 ml 100 ml 300 ml IV Total 400 ml 250 ml 2660 ml Output Urine Total 2350 ml 2400 ml 7950 ml # Bowel Movements 1 1 Exam Oriented 3, no distress. Fluent speech Anicteric sclerae. Neck is supple. Lungs are clear with normal effort and rate. Heart is regular without murmur Abdomen is soft nondistended there is an ostomy output. Extremities are free of edema good pedal pulses IVs and Medications Medications Reviewed: Medications were reviewed in detail Lab and Diagnostics Result Diagram: 06/03/16 0230 06/03/16 0230 Assessment & Plan Patient is an 89-year-old female with history of diverticulitis s/p partial colectomy with colostomy, dementia, atrial fibrillation presenting with cough and dyspnea and admitted for pneumonia and acute CHF exacerbation. 1. Acute hypoxemic respiratory failure. Present on admission. Active. This appears to be multifactorial. She is Flu A positive. There is a possible pneumonia which may well be viral. She also has evidence of acute and chronic diastolic heart failure with volume overload. She has done very well and is now weaned down to about 2 L of oxygen. -We will continue antibiotics and Tamiflu. 3. Acute on chronic diastolic CHF exacerbation. Present on admission. Improved. I will resume a baseline once daily dosing of oral Lasix 4. History of C. diff colitis s/p hemicolectomy. Present on admission. Presumed stable -Metronidazole and ciprofloxacin are listed on medication list. Need to verify when these were prescribed and intended course, duration. Follow clinically for any evidence of diarrhea. 5. Hypertension, chronic. Present on admission -Continue home losartan, carvedilol 6. Atrial fibrillation, chronic. Present on admission -INR 2.15 -Need to verify medication with [facility]. Warfarin not listed on medication list -PT/INR in AM -Warfarin per pharmacy 8. Dyslipidemia, chronic. Present on admission -Continue home statin 9. Dementia, chronic. Present on admission 10. History of diverticulitis s/p partial colectomy now with colostomy. Present on admission -Routine colostomy care Patient Status: Patient is admitted under inpatient status with expected length of stay greater than 2 midnights due to severity of presenting symptoms, risk of adverse event, and complexity of treatment plan. Discharge planning anticipate discharge back to [facility] when patient is able which may be within next 1-2 days. Pain Evaluation: Adequate Pain Control GI Prophylaxis: Not indicated VTE Prophylaxis: Theraputic Anticoag with Warfarin VTE Mechanical Devices: Intermittant Pneumatic CD Resuscitation Status: Limited Interventions Limited Interventions: Cardioversion/Defibrillation, Intubation w Mech Vent, BiPAP, Medications and IV Fluid Time spent 25 minutes Shiv Child MD Jun 03, 2016 11:14 2. No free intraperitoneal fluid or air. 3. No dilated loops of bowel. 4. Atherosclerosis including the coronary vasculature. 5. Bilateral pleural effusions. 6. Bibasilar lung consolidation which could represent compressive atelectasis, however infectious process cannot be excluded please correlate with clinical and laboratory data. 7. Bilateral adnexal cysts. 8. No evidence of abscess. 9. Hepatic steatosis. Dictated by: Coleen Laughlin MD, PhD on 05/31/2016 at 18:12 Approved by: Coleen Laughlin MD, PhD on 05/31/2016 at 18:12 ------ Assessment & Plan Patient is an 89-year-old female with history of diverticulitis s/p partial colectomy with colostomy, dementia, atrial fibrillation presenting with cough and dyspnea and admitted for pneumonia and acute CHF exacerbation. 1. Acute hypoxemic respiratory failure. Present on admission. Active. This appears to be multifactorial. She is Flu A positive. There is a possible pneumonia which may well be viral. She also has evidence of acute and chronic diastolic heart failure with volume overload. She has done very well and is now weaned down to about 2 L of oxygen. -We will continue antibiotics and Tamiflu. 3. Acute on chronic diastolic CHF exacerbation. Present on admission. Improved. I will resume a baseline once daily dosing of oral Lasix 4. History of C. diff colitis s/p hemicolectomy. Present on admission. Presumed stable -Metronidazole and ciprofloxacin are listed on medication list. Need to verify when these were prescribed and intended course, duration. Follow clinically for any evidence of diarrhea. 5. Hypertension, chronic. Present on admission -Continue home losartan, carvedilol 6. Atrial fibrillation, chronic. Present on admission -INR 2.15 -Need to verify medication with [facility]. Warfarin not listed on medication list -PT/INR in AM -Warfarin per pharmacy 8. Dyslipidemia, chronic. Present on admission -Continue home statin 9. Dementia, chronic. Present on admission 10. History of diverticulitis s/p partial colectomy now with colostomy. Present on admission -Routine colostomy care Patient Status: Patient is admitted under inpatient status with expected length of stay greater than 2 midnights due to severity of presenting symptoms, risk of adverse event, and complexity of treatment plan. Discharge planning anticipate discharge back to [facility] when patient is able which may be within next 1-2 days. Pain Evaluation: Adequate Pain Control GI Prophylaxis: Not indicated VTE Prophylaxis: Theraputic Anticoag with Warfarin VTE Mechanical Devices: Intermittant Pneumatic CD Resuscitation Status: Limited Interventions Limited Interventions: Cardioversion/Defibrillation, Intubation w Mech Vent, BiPAP, Medications and IV Fluid Time spent 25 minutes Shiv Child MD Jun 03, 2016 11:14
[2016-06-03] MEDS ORDERED: KCl 40 mEq/D5W 500 mL 40 MEQ in IV Premix 1 EACH IV ONE (11:15)
--- NOTE | 2016-06-03 13:19 | NUR ---
Evaluation completed. Please go to "Notes" then click on "Assessments and Notes" (bottom left corner of screen). Then select appropriate discipline tab on top of screen.
--- NOTE | 2016-06-03 19:27 | NUR ---
Appetite Pt has not had any appetite but cooperative and trying bites of tray and finished 337mls of Ensure today during shift. States "I'm just not hungry" but able to encourage small bites and ice cream today during shift. Will continue to monitor with frequent rounds.
--- NOTE | 2016-06-03 23:22 | NUR ---
IV MEDS/Q2 TURNS Pt c/o pain r/t IV Potassium running during day shift, hot packs on the arm seemed to alleviate some of the pain. IV antibiotics ran with no complaints. Pt repositioned for comfort and skin integrity, Q2 turns. Pt c/o pain to her left big toe, extremely tender to the touch. Toe slightly red with no other integrity issues. Pt pleasant and cooperative. No other issues noted.
[2016-06-04] VITALS (10 sets, daily range): BP systolic 121–140; BP diastolic 55–84; PULSE 60–83; RESP 16–18; O2SAT 94–98
[2016-06-04] MEDS ORDERED: 0.9% Sodium Chloride 250 ML ONE (02:20)
[2016-06-04 03:48] LABS: INR 2.79 ratio
[2016-06-04] MEDS: Insulin LISPRO 300 Unit/3 mL Inj SUBQ SCH ×4 (08:00→22:00)
[2016-06-04] MEDS: levoFLOXacin Inj 750 MG in IV Premix 1 EACH IV SCH (08:51)
[2016-06-04] MEDS: Ondansetron 2 mg/mL 2 mL Inj IVPUSH PRN (11:05)
--- NOTE | 2016-06-04 11:06 | PCM.PNMED ---
Subjective Date of Service Jun 04, 2016 Subjective She had little or nothing yesterday. She does have nausea and anorexia. Her breathing feels about the same. She denies feeling short of breath. She does have a dry nonproductive cough. No fevers or chills. No chest pain. She denies any change in her ostomy output. She feels globally weak. Exam Vital Signs Vital Sign - Last Date Time Temp Pulse Resp B/P Pulse Ox O2 Delivery O2 Flow Rate FiO2 06/04/16 08:37 36.4 80 16 137/76 98 Nasal Cannula 2.00 06/02/16 13:16 30 Intake and Output 06/03/16 06/03/16 06/04/16 Cumulative From/Thru 15:00 23:00 07:00 05/31/16 15:20 - 06/04/16 06:31 Intake Total 1438 ml 1030 ml 5428 ml Output Total 650 ml 1800 ml 36917 ml Balance 788 ml -770 ml -4972 ml Intake Oral 637 ml 100 ml 1037 ml IV Total 801 ml 930 ml 4391 ml Output Urine Total 400 ml 1750 ml 14333 ml Stool Total 250 ml 50 ml 300 ml # Bowel Movements 1 Exam Alert oriented 3, fluent speech She is fragile. Anicteric sclerae Neck supple Lungs poor inspiratory effort. She does have some expiratory wheezing and scattered rhonchi but overall good air movement. Heart is regular without murmur gallop or rub. Abdomen is soft nondistended. Pelvic extremities are noted for 1+ edema good pedal pulses. IVs and Medications Medications Reviewed: Medications were reviewed in detail Lab and Diagnostics Result Diagram: 06/03/16 0230 06/03/16 1840 Assessment & Plan Patient is an 89-year-old female with history of diverticulitis s/p partial colectomy with colostomy, dementia, atrial fibrillation presenting with cough and dyspnea and admitted for pneumonia and acute CHF exacerbation. 1. Acute hypoxemic respiratory failure. Present on admission. Active. This appears to be multifactorial. She is Flu A positive. There is a possible pneumonia which may well be viral. Her respiratory status is improving overall. We will repeat a chest x-ray today she P she was diuresed and I believe is euvolemic. She is on empiric antibiotics and has been treated for influenza A. She has done very well and is now weaned down to about 2 L of oxygen. -We will continue antibiotics and Tamiflu. 3. Acute on chronic diastolic CHF exacerbation. Present on admission. Improved. I will resume a baseline once daily dosing of oral Lasix, starting today. 4. History of C. diff colitis s/p hemicolectomy. Present on admission. Presumed stable -Metronidazole and ciprofloxacin are listed on medication list. Need to verify when these were prescribed and intended course, duration. Follow clinically for any evidence of diarrhea. There is no clinical evidence of ongoing diarrhea. We will check a PCR for C. difficile toxin. 5. Hypertension, chronic. Present on admission -Continue home losartan, carvedilol 6. Atrial fibrillation, chronic. Present on admission -INR 2.15 -Need to verify medication with [facility]. Warfarin not listed on medication list -PT/INR in AM -Warfarin per pharmacy 8. Dyslipidemia, chronic. Present on admission -Continue home statin 9. Dementia, chronic. Present on admission 10. History of diverticulitis s/p partial colectomy now with colostomy. Present on admission -Routine colostomy care Patient Status: Patient is admitted under inpatient status with expected length of stay greater than 2 midnights due to severity of presenting symptoms, risk of adverse event, and complexity of treatment plan. Discharge planning anticipate discharge back to [facility] when patient is able which may be within next 1-2 days. Pain Evaluation: Adequate Pain Control GI Prophylaxis: Not indicated VTE Prophylaxis: Theraputic Anticoag with Warfarin VTE Mechanical Devices: Intermittant Pneumatic CD Resuscitation Status: Limited Interventions Limited Interventions: Cardioversion/Defibrillation, Intubation w Mech Vent, BiPAP, Medications and IV Fluid Time spent 20 minutes Shiv Child MD Jun 04, 2016 11:06
[2016-06-04 11:27] LABS: Mean Corpuscular Hemoglobin 30.2 pg (27.0-35.0); Mean Corpuscular Volume 93.7 fL (81-100)
[2016-06-04] MEDS: MetoCLOpramide 5 mg/mL 2 mL Inj IVPUSH PRN (12:41)
[2016-06-04] MEDS: Ceftaroline Inj 400 MG in Dextrose 5% 250 ML IV SCH (12:42)
--- NOTE | 2016-06-04 12:44 | DRSVH ---
PROCEDURE: X-RAY CHEST ONE VIEW, PORTABLE ([id number]) INDICATIONS: 89 year-old female with dyspnea. TECHNIQUE: One view of the chest was acquired. COMPARISON: [facility], CR, XR CHEST 1VW (PORTABLE), 06/02/2016, 8:14. [facility], CR, XR CHEST 1VW (PORTABLE), 06/01/2016, 5:49. [facility], CR, XR CHEST 1VW (FRANDY BLE), 05/31/2016, 15:51. 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 Lungs and pleura: There is small persistent right basilar pleural effusion. No pneumothorax. Lung vol umes have increased with improved inspiratory effort, with decreased retrocardiac atelectasis. Right perihilar air space opacities have also decreased. Mediastinum: Mediastinal contours appear normal. Mild cardiomegaly is unchanged. There is aortic at herosclerosis. Bones and chest wall: No suspicious bony lesions. Overlying soft tissues appear unremarkable. IMPRESSION: 1. Small basilar right pleural effusion persists, of uncertain etiology. 2. Decreased right perihilar pneumonia and/or atelectasis. Interval decreased retrocardiac atelectasi s as well. Dictated by: Kevyn Das M.D. on 06/04/2016 at 12:42 Approved by: Kevyn Das M.D. on 06/04/2016 at 12:42
--- NOTE | 2016-06-04 12:57 | PCM.PHAPRO ---
Progress Date of Service: Jun 04, 2016 Cough and dyspnea Warfarin Management Per Pharmacy: Indication: Stroke prophylaxis as patient has atrial fibrillation ([id number]- Vasc = 5) Home Dose: 2.5 mg Tues/Thurs and 1 mg all other days Age: 89 yo Labs: Hgb/Hct: 12.0/37.2 Plt: 249 INR: 2.79 Drug-Drug Interactions: Tamiflu Drug-Disease Interactions: Acute illness, some liver enzyme elevation today ( AST/ALT = 51/34), CHF Date -Jun 01-Jun 02-Jun 03-Jun 04-May INR 2.19 2.29 2.21 2.77 2.79 Warf Dose 1MG 1 MG 0.5 0.5 Recommendation: Warfarin 0.5 mg PO x 1 today @ 1700 Pharmacy to continue to monitor for signs/symptoms of bleeding. Thank You, Paulina Corona, Pharm D. Paulina Corona Jun 04, 2016 12:57
--- NOTE | 2016-06-04 13:43 | NUR ---
Home O2 assessment done. Pt 96% with Hr 77 on 3 lpm O2. Pt taken off O2 and SaO2 dropped to86% at rest. Pt then placed back on 3 lpm nasal cannula with SaO2 coming back up to 95%.
--- NOTE | 2016-06-04 15:03 | NUR ---
NUTRITION CONSULT: ASSESS: 89 YO F admitted with pneumonia and CHF exacerbation. Pt had poor PO intake X 4 days on full liquid diet. Trickle TF to start today per MD order. PMHx: Diverticulitis with perforated bowel status post hemicolectomy, CHF, HTN, dyslipidemia, A-fib, dementia. DIET: Full liquid. PO intake bites. LABS: Glu 120, Ca 8.0, AST 51, ALT 34, Alb 2.8 MEDICATIONS: Reviewed. Reglan. GI: Stool via colostomy. SKIN: No issues noted. ANTHROPOMETRICS: Current Wt: 65.0 kg, BMI: 23.8 kg/m2. Admit weight: 65.91 kg. IBW: 56.8 kg (126.7% IBW) ESTIMATED NEEDS: Calories:0709-3208 kcal/day (25-30 kcal/kg BW) Protein: 65-78 g/day (1.0-1.2 g/kg BW) NUTRITION DIAGNOSIS: 1) Inadequate oral intake related to inability to consume sufficient energy, as evidenced by minimal PO intake x 4 days.-PERSISTS. INTERVENTION: 1) Per MD order, enteral feeding of Jevity 1.5 starting at 10 ml/hr. Orders to be put in chart for nursing clarification. 2) Once TF able to be advanced, recommend enteral feeding of Jevity 1.5 at 10 ml to be advanced 10 ml q 6 hr to goal rate of 50 ml/hr. At goal TF will provide 1725 kcal, 73 g protein; meeting 100% calorie/protein needs. 3) Consider discussion of goals of care regarding nutrition support. Nutrition support in patients with advanced age and dementia may be contraindicated with the risks/burden outweighing the benefits. MONITOR/EVALUATE: Diet advance/tolerance, TF tolerance/advance, PO intake, labs, GI/nutrition status. Follow per high nutrition risk guidelines.
--- NOTE | 2016-06-04 15:55 | NUR ---
Spoke with Connor at [facility] and they can accept patient with [facility] to follow. Jeny is the one with [facility] contract and Connor is starting on that now. Updated GEAR GRINDER
--- NOTE | 2016-06-04 17:39 | DRSVH ---
PROCEDURE: X-RAY KUB ([id number]) INDICATIONS: 89 year-old female with feeding tube placement. TECHNIQUE: One view of the abdomen acquired. COMPARISON: [facility], CR, XR CHEST 1VW (PORTABLE), 06/04/2016, 11:54. [facility], CR, XR CHEST 1VW (PORTABLE), 06/02/2016, 8:14. [facility], CR, XR CHEST 1VW (PORT ABLE), 06/01/2016, 5:49. FINDINGS: Surgical changes and devices: Nasogastric feeding tube is now present, with tip in the gastric body. 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 Bowel: Bowel gas pattern is normal. Soft tissues: No suspicious abdominal calcifications. Visualized solid organ contours appear normal in size. There is persistent small right subpulmonic pleural effusion. Bones: No suspicious bony lesions. IMPRESSION: Nasogastric tube is now present, with tip in the gastric body. Dictated by: Kevyn Das M.D. on 06/04/2016 at 17:37 Approved by: Kevyn Das M.D. on 06/04/2016 at 17:37
--- NOTE | 2016-06-04 19:19 | NUR ---
NG tube/feeding/nausea Patient alert and oriented x2 (did not know what year), forgetful and needs frequent cueing. Reports intermittent back pain, PRN tylenol given. Very poor PO intake, reports continuous nausea despite zofran and reglan administration. NG tube placed in right nare, placement verified. 10mls Jevity per hour with q4 40 ml flush per MD orders. Santacruz patent and draining yellow urine to gravity.
[2016-06-05] VITALS (8 sets, daily range): BP systolic 102–126; BP diastolic 48–65; PULSE 60–80; RESP 14–18; O2SAT 95–99
[2016-06-05] MEDS ORDERED: 0.9% Sodium Chloride 250 ML ONE (01:40)
[2016-06-05 02:51] LABS: INR 2.45 ratio
--- NOTE | 2016-06-05 06:02 | NUR ---
Tube feeding/pain Appears to be tolerating tube feeding in NG without problems. C/o nausea but states she always has this and it is mild. C/o head and back pain that was not relieved with Tylenol, but much better after 1 mg IV morphine. Allowed assistance with turning several times during the shift, although declined this several times as well. Tele continues v paced with underlying a flutter. Sats in mid-90's on 2 liters nasal cannula. Son Chadwick called twice and updated on patient's condition with her permission.
[2016-06-05] MEDS: Insulin LISPRO 300 Unit/3 mL Inj SUBQ SCH ×4 (07:48→22:00)
[2016-06-05] MEDS: MetoCLOpramide 5 mg/mL 2 mL Inj IVPUSH PRN (08:10)
--- NOTE | 2016-06-05 10:30 | PCM.PHAPRO ---
Progress Cough and dyspnea Warfarin for AFIB Home dose 1mg/day x/ 2.5mg TuTh Dose history (inpt) Date Jun 01-Jun 02-Jun 03-Jun 04-Jun 05-May INR 2.19 2.29 2.21 2.77 2.79 2.45 Warf Dose 1MG 1 MG 0.5 0.5 1 a/ Metronidazole stopped. p/ Resume home dosing and follow Punete Mazariegos Pharm D Jun 05, 2016 10:30
[2016-06-05] MEDS ORDERED: 0.9% Sodium Chloride 250 ML IV ONE (12:25)
[2016-06-05] MEDS ORDERED: Lidocaine 4% 4 mL Laryng-O-Jet Top Soln MUC_MEMBRM PRN (12:40)
--- NOTE | 2016-06-05 12:59 | NUR ---
Gave access and faxed facesheet to Meme brown MSW
--- NOTE | 2016-06-05 13:05 | NUR ---
NUTRITION FOLLOW-UP: ASSESS: 89 YO F admitted with pneumonia and CHF exacerbation. Pt had poor PO intake X 4 days on full liquid diet and minimal PO intake prior to admit. Trickle TF started 06/04 and per RN tolerated well. Pt continues to eat bites so will increase TF towards goal rate. Per MD, deloris to advance TF. Pt continues to have some nausea but per pt she always has some nausea. PMHx: Diverticulitis with perforated bowel status post hemicolectomy, CHF, HTN, dyslipidemia, A-fib, dementia. DIET: Full liquid. PO intake bites. NUTRITION SUPPORT: Jevity 1.5 @ 10ml/hr provide 345ml/day and 15g pro/day. LABS: Glu 120, Ca 8.0, AST 51, ALT 34, Alb 2.8 MEDICATIONS: Reviewed. Reglan. GI: Stool via colostomy SKIN: No issues noted, melanie 15 ANTHROPOMETRICS: Current Wt: 65.6 kg, BMI: 24.1 kg/m2. Admit weight: 65.91 kg. IBW:56.8 kg (126.7% IBW) ESTIMATED NEEDS: Calories: 8318-6576 kcal/day (25-30 kcal/kg BW) Protein: 65-78 g/day (1.0-1.2 g/kg BW) Fluids: 1625-1950ml/day (25-30cc/kg) NUTRITION DIAGNOSIS: 1) Inadequate oral intake related to inability to consume sufficient energy, as evidenced by minimal PO intake x 4 days.-PERSISTS. INTERVENTION: 1) Okay per MD to advance TF, recommend enteral feeding of Jevity 1.5 at 10 ml to be advanced 10 ml q 6 hr to goal rate of 50 ml/hr. At goal TF will provide 1725 kcal, 73 g protein; meeting 100% calorie/protein needs. 2) Will continue to monitor PO intake and adjust goal rate based on intake 3) Consider discussion of goals of care regarding nutrition support. Nutrition support in patients with advanced age and dementia may be contraindicated with the risks/burden outweighing the benefits. MONITOR/EVALUATE: Diet advance/tolerance, TF tolerance/advance, PO intake, labs, GI/nutrition status. Follow per high nutrition risk guidelines. Addendum: 06/06/16 at [address] Per RN, TFs were increased to 40 ml/hr this morning and pt had 150 ml of emesis. TFs were decreased to 30 ml/hr. Pt had emesis again. TFs now on hold and GI would like to do a contrast study.
--- NOTE | 2016-06-05 13:27 | NUR ---
Hypotension Pt. hypotensive (102/48). All other vitals stable. Pt. asymptomatic. MD notified. 250 ml bolus ordered and administered. Will re-check BP and continue to monitor.
--- NOTE | 2016-06-05 14:47 | PCM.PNMED ---
Subjective Date of Service Jun 05, 2016 Subjective She is doing better with regard to her respirations. Minimal cough. No fevers or chills. No chest pain. She still has anorexia and intermittent nausea. She has a feeding tube in place and echo rate tube feeds with some nausea but no regurgitation. He feels weak all over. She continues to be lethargic and somewhat apathetic. Exam Vital Signs Vital Sign - Last Date Time Temp Pulse Resp B/P Pulse Ox O2 Delivery O2 Flow Rate FiO2 06/05/16 11:57 36.3 60 14 102/48 98 Nasal Cannula 3.00 06/02/16 13:16 30 Intake and Output 06/04/16 06/04/16 06/05/16 Cumulative From/Thru 15:00 23:00 07:00 05/31/16 15:20 - 06/05/16 06:29 Intake Total 507 ml 330 ml 6265 ml Output Total 600 ml 550 ml 09427 ml Balance -93 ml -220 ml -5285 ml Intake Oral 0 ml 0 ml 1037 ml IV Total 507 ml 89 ml 4987 ml Tube Feeding 121 ml 121 ml Tube Irrigant 120 ml 120 ml Output Urine Total 600 ml 200 ml 73069 ml Stool Total 350 ml 650 ml # Bowel Movements 2 3 Exam Third oriented 3, fluent speech, lethargic Normal head. Anicteric sclerae. Neck is supple. Lungs are clear, normal effort minimal expiratory wheezing. Heart is regular without murmur gallop or rub. Abdomen is soft nondistended. She has an ostomy which is unremarkable with gas and fluid. Extremities are free of edema, good pedal and radial pulses. Skin is free of rash or lesions IVs and Medications Medications Reviewed: Medications were reviewed in detail Lab and Diagnostics Result Diagram: 06/04/16 1118 06/04/16 1118 Assessment & Plan Patient is an 89-year-old female with history of diverticulitis s/p partial colectomy with colostomy, dementia, atrial fibrillation presenting with cough and dyspnea and admitted for pneumonia and acute CHF exacerbation. 1. Acute hypoxemic respiratory failure. Present on admission. Active. This appears to be multifactorial. She is Flu A positive. There is a possible pneumonia which may well be viral. Her respiratory status is improving overall. We will repeat a chest x-ray today she P she was diuresed and I believe is euvolemic. She is on empiric antibiotics and has been treated for influenza A. She has done very well and is now weaned down to about 2 L of oxygen. She continues to improve. This point we have stopped all antibiotics and are treating her with full course of Tamiflu. -We will continue antibiotics and Tamiflu. 2. Possible report of C. difficile toxin colitis. She did undergo surgery at [facility]. Yesterday we sent a PCR off from her ostomy fluid and this is negative. 3. Acute on chronic diastolic CHF exacerbation. Present on admission. Improved. I will resume a baseline once daily dosing of oral Lasix, starting today. 4. History of diverticulitis s/p hemicolectomy. Present on admission. Presumed stable -Metronidazole and ciprofloxacin are listed on medication list, presumably related to her diagnosis of diverticulitis. Initial CT scan was unremarkable without evidence of anastomosis breakdown or diverticuli or diverticulitis.. Need to verify when these were prescribed and intended course, duration. Follow clinically for any evidence of diarrhea. There is no clinical evidence of ongoing diarrhea. We will check a PCR for C. difficile toxin. 5. Hypertension, chronic. Present on admission -Continue home losartan, carvedilol 6. Atrial fibrillation, chronic. Present on admission -INR 2.15 -Need to verify medication with Rae Zahl. Warfarin not listed on medication list -PT/INR in AM -Warfarin per pharmacy 8. Dyslipidemia, chronic. Present on admission -Continue home statin 9. Dementia, chronic. Present on admission 10. History of diverticulitis s/p partial colectomy now with colostomy. Present on admission -Routine colostomy care 11. Severe protein caloric malnutrition. The patient is currently doing well with a feeding tube in place since yesterday. She is on trickle rate feeds and we will continue to advance. Anticipate discharge to residential facility with a 2-4 week trial of tube feedings. She will be stable from a discharge within the next 2-3 days after we get her tube feed rates up and find a suitable disposition. Pain Evaluation: Adequate Pain Control GI Prophylaxis: Not indicated VTE Prophylaxis: Theraputic Anticoag with Warfarin VTE Mechanical Devices: Intermittant Pneumatic CD Resuscitation Status: Limited Interventions Limited Interventions: Cardioversion/Defibrillation, Intubation w Mech Vent, BiPAP, Medications and IV Fluid Time spent 25 minutes Shiv Child MD Jun 05, 2016 14:47
[2016-06-05] MEDS: Ondansetron 2 mg/mL 2 mL Inj IVPUSH PRN ×2 (16:33→21:35)
[2016-06-06] VITALS (9 sets, daily range): BP systolic 109–136; BP diastolic 49–75; PULSE 78–80; RESP 16–18; O2SAT 95–98
[2016-06-06] MEDS: Ondansetron 2 mg/mL 2 mL Inj IVPUSH PRN ×2 (02:37→17:59)
[2016-06-06 03:36] LABS: INR 2.2 ratio
[2016-06-06] MEDS: Insulin LISPRO 300 Unit/3 mL Inj SUBQ SCH ×4 (08:00→22:00)
--- NOTE | 2016-06-06 08:18 | NUR ---
Tube Feeds Pt had intermittent nausea, treated effectively w/ Zofran. Tube feed increased to 30mL/hr, pt tolerating w/out vomiting. Gastric residual less than 5mL. Colostomy putting out loose/liquid brown stool. Pt had overall restful night and slept between care interventions. Tele Vpaced 80
--- NOTE | 2016-06-06 10:03 | NUR ---
RAGHAVENDRA: Son in room this morning with patient. Patient has dementia at base and is sleeping soundly. Son signed RAGHAVENDRA. [id number] Son also is aware of plans moving forward and wants to make sure himself and his father are updated as we get close to discharge. Son also asked for father to be seen this afternoon by Hayden. Father has been sole caregiver for patient for months at this point and may need some support himself. Referral given to [facility]
--- NOTE | 2016-06-06 13:29 | PCM.PNMED ---
Subjective Date of Service Jun 06, 2016 Subjective She feels weak. She is still as a dry cough. No dyspnea. She is doing well on one or 2 L of oxygen. She continues to have persistent nausea no abdominal pain or distention. She has good ostomy output. No fevers or chills. She was admitted for flu a which is improved but also has had persistent nausea since oriented predating a recent sigmoid colectomy for diverticulitis. Exam Vital Signs Vital Sign - Last Date Time Temp Pulse Resp B/P Pulse Ox O2 Delivery O2 Flow Rate FiO2 06/06/16 12:01 36.5 80 16 126/62 97 Nasal Cannula 2.00 06/02/16 13:16 30 Intake and Output 06/05/16 06/05/16 06/06/16 Cumulative From/Thru 15:00 23:00 07:00 05/31/16 15:20 - 06/06/16 02:54 Intake Total 2118 ml 8383 ml Output Total 800 ml 39056 ml Balance 1318 ml -3967 ml Intake Oral 340 ml 1377 ml IV Total 892 ml 5879 ml Tube Feeding 152 ml 273 ml Tube Irrigant 734 ml 854 ml Output Urine Total 650 ml 19074 ml Stool Total 150 ml 800 ml # Bowel Movements 3 Exam Alert oriented, flat affect. No distress. Anicteric sclerae. Neck supple. Lungs are clear with no wheezing or focal findings Heart is regular without murmur. Abdomen is soft nondistended ostomy she has good output. Extremities with 1+ edema. Fluent speech. IVs and Medications Medications Reviewed: Medications were reviewed in detail Lab and Diagnostics Result Diagram: 06/04/16 1118 06/04/16 1118 Assessment & Plan Patient is an 89-year-old female with history of diverticulitis s/p partial colectomy with colostomy, dementia, atrial fibrillation presenting with cough and dyspnea and admitted for pneumonia and acute CHF exacerbation. 1. Acute hypoxemic respiratory failure. Present on admission. Active. This appears to be multifactorial. She is Flu A positive. There is a possible pneumonia which may well be viral. Her respiratory status is improving overall. We will repeat a chest x-ray today she P she was diuresed and I believe is euvolemic. She is on empiric antibiotics and has been treated for influenza A. She has done very well and is now weaned down to about 2 L of oxygen. She continues to improve. This point we have stopped all antibiotics and have finished a full course of Tamiflu. -We will continue antibiotics and Tamiflu. 2. Possible report of C. difficile toxin colitis. She did undergo surgery at [facility]. Yesterday we sent a PCR off from her ostomy fluid and this is negative. 3. Acute on chronic diastolic CHF exacerbation. Present on admission. Improved. I will resume a baseline once daily dosing of oral Lasix, starting today. 4. History of diverticulitis s/p hemicolectomy. Present on admission. Presumed stable -Metronidazole and ciprofloxacin are listed on medication list, presumably related to her diagnosis of diverticulitis. Initial CT scan was unremarkable without evidence of anastomosis breakdown or diverticuli or diverticulitis.. Need to verify when these were prescribed and intended course, duration. Follow clinically for any evidence of diarrhea. There is no clinical evidence of ongoing diarrhea. She has ongoing nausea. She has a soft abdomen and normal white count. Initial CT scan was unremarkable.. 5. Hypertension, chronic. Present on admission -Continue home losartan, carvedilol 6. Atrial fibrillation, chronic. Present on admission -INR 2.15 -Need to verify medication with Rae Calhoun. Warfarin not listed on medication list -PT/INR in AM -Warfarin per pharmacy 8. Dyslipidemia, chronic. Present on admission -Continue home statin 9. Dementia, chronic. Present on admission 10. History of diverticulitis s/p partial colectomy now with colostomy. Present on admission -Routine colostomy care 11. Severe protein caloric malnutrition. The patient is currently doing well with a feeding tube in place since yesterday. She is on trickle rate feeds and we will continue to advance. Anticipate discharge to senior living facility with a 2-4 week trial of tube feedings. 12. Persistent nausea. A long discussion with the patient's son today. We will continue tube feeds with the intent of trying to send her to a senior living facility, probably [facility], with tube feeds for 2-4 weeks to support her caloric recovery. However if she continues to have severe nausea with consider stopping tube feeds and doing a CAT scan tomorrow. If the CT remains unremarkable will further consider an endoscopy to rule out ulcers has persistent nausea seems to be her #1 problem at this point. She will be stable from a discharge within the next 2-3 days after we get her tube feed rates up and find a suitable disposition. 1600 addendum. The patient has been vomiting this afternoon, mucus and tube feeds. Her residual was also a little high. Prolonged discussion with family sign and . We will stop tube feeds. Will let her rest tonight and then do CT with oral and IV contrast tomorrow to rule out bowel obstruction or other intra-abdominal abnormality. The patient fails to improve we will then pursue GI consultation for endoscopy. Reviewed the recent history with the patient family today. It sounds as though she was diagnosed with C. difficile toxin colitis in mid April. She was then treated. She then then presented to the emergency department in [place] and basically underwent an emergent sigmoid colectomy for perforation. It was some mention of possible diverticulitis. The rest of his colon apparently appeared normal. He is not discharged to [facility] on Cipro and Flagyl, common diverticulitis regimen. She then presented here for flu a is have persistent nausea. The nausea has actually been going back even before her initial diagnosis C. difficile toxin colitis. A C. difficile toxin PCR 2 days ago was negative. Stopped all antibiotics as there appears to be no active infection right now, diverticulitis, C. difficile toxin colitis, or probably even pneumonia. Pain Evaluation: Adequate Pain Control GI Prophylaxis: Not indicated VTE Prophylaxis: Theraputic Anticoag with Warfarin VTE Mechanical Devices: Intermittant Pneumatic CD Resuscitation Status: Limited Interventions Limited Interventions: Cardioversion/Defibrillation, Intubation w Mech Vent, BiPAP, Medications and IV Fluid Time spent 30 minutes Shiv Child MD Jun 06, 2016 13:29
--- NOTE | 2016-06-06 14:53 | NUR ---
Social Work Note: Continued Discharge Planning Data& Assessment: JAY met with pt and pt at bedside to discuss discharge planning, SW role explained. SW communitcated that now that the pt has the feeding tube, she is limited in the fci facilities in the surrounding area that will be able to meet her needs and accept her. JAY explained that [facility] in [place] would be the only facility that would be able to accept her with the feeding tube. Pt disappointed that the facility is so far away from home but understands that will be the facility that will be able to meet the pt's needs. Pt explained his real concerns are about pt's medical complaints not being addressed and her being discharged prior to her being medically ready. Pt complained of being nauseas. SW communicated these concerns to RN. Pt denies any other needs at this time. JAY left a message with [facility] regarding pt upcoming discharge in the next 1-2 days as anticipated. SW to follow up with [facility] regarding formula for feeding tube and accepting pt when medically ready. SW to continue to follow. Plan: Anticipated discharge to [facility] when medically ready. SW to follow up with [facility] regarding formula for feeding tube and accepting pt when medically ready. SW to continue to follow. MAN Rosado
--- NOTE | 2016-06-06 15:22 | NUR ---
Spoke with Connor at [facility] and they can not accept patient with NG tube under any circumstance. [facility] is unable to accommodate. Meme was given referral and they are not in network with patient's insurance. Hue was continuing to review and looked at patient benefits and she DOES have out of network benefits. Benefits will need to be checked further to see if they can get a one time agreement. There will be an out of pocket cost for patient and family. They can meet patient needs when she is ready for discharge. Updated JAVASCRIPT DEVELOPER
[2016-06-06] MEDS ORDERED: Promethazine Inj 12.5 MG in Dextrose 5%-Pha MIX 50 ML IV PRN (15:30)
[2016-06-06] MEDS: Promethazine Inj 12.5 MG in Dextrose 5%-Pha MIX 50 ML IV PRN (15:40)
[2016-06-06] MEDS: 0.9% Sodium Chloride 1,000 ML IV SCH (17:59)
--- NOTE | 2016-06-06 19:07 | NUR ---
Vomiting/Pain/NG tube feed/Output Patient alert and oriented x2 (unsure of date), DAVALOS, severely weak. Starting at approx 1400 patient had continuous episodes of emesis, totaling 850 throughout the shift. IV Phenergan administered, patient reported continued nausea but vomiting subsided. Patient reported continual abdominal pain throughout shift, tender to touch. Patient's abdomen did look mildly more distended then when I had this patient on Saturday the . Tube feed stopped per MD orders. Patient had 700+ pure liquid stool out of colostomy in addition to 850 emesis. Patient only had 300 out in nam catheter, yohana in color.
[2016-06-06] MEDS: MetoCLOpramide 5 mg/mL 2 mL Inj IVPUSH PRN (21:54)
[2016-06-07] VITALS (7 sets, daily range): BP systolic 110–157; BP diastolic 54–73; PULSE 80–81; RESP 14–20; O2SAT 93–98
[2016-06-07] MEDS: Ondansetron 2 mg/mL 2 mL Inj IVPUSH PRN ×3 (03:17→22:41)
--- NOTE | 2016-06-07 05:29 | NUR ---
Nausea/Mentation Pt c/o nausea and given Reglan and Zofran with good effect. Pt tolerated meds after Reglan administration. No vomiting noted tonight but while pt reassessed she was able to cough up a moderate about of thick/mostly clear sputum, pt encouraged to do as much as she could as the majority of the time her cough has been dry. Colostomy putting out liquid brown/green stool. Pt oriented to person and place, when reassessed pt also able to state the year, very forgetful w/ short term things and will ask the same question a few times. Pt is call light appropriate and voices needs, reluctant to turn much as activity seems to cause more nausea. Vitals stable, pt continues on 2L NC w/ sats mid 90s, tele VPaced 80 Addendum: 06/07/16 at 0609 by PARIS AIKEN RN Wet sponges used throughout night for oral care which gave pt comfort from dry mouth/throat without making her nauseous.
[2016-06-07] MEDS: Insulin LISPRO 300 Unit/3 mL Inj SUBQ SCH ×4 (08:00→22:00)
[2016-06-07] MEDS: 0.9% Sodium Chloride 1,000 ML IV SCH ×2 (09:07→19:25)
[2016-06-07] MEDS: MetoCLOpramide 5 mg/mL 2 mL Inj IVPUSH PRN ×2 (09:25→22:16)
--- NOTE | 2016-06-07 10:11 | NUR ---
Social Work: Continued Discharge Planning D: Pt discussed in morning rounds. Pt is still not tolerating tube feeds and continues to require hospitalization until more medically stable. Pt likely to require tube feeds at time of discharge. Case Management has been exploring possible facilities that can manage NG tube. [facility] accepted the pt pending an available bed. GLUER MACHINE OPERATOR spoke with pt's son, Armando Pollock ([phone]). GLUER MACHINE OPERATOR discussed dcp options and need to locate facility that can accept NG tube. They would prefer the pt be on [facility] but also understand that at this time [facility] is the only facility that has accepted. [facility] Jolie and Shireen reviewed the pt and state that they can accept the pt with the tube feeds. They do not currently have a contract with pt's insurance however they are starting a one-time authorization. [facility] spoke with pt's son about this and that there may be higher [id number] expenses for the pt. They will contact GLUER MACHINE OPERATOR when they receive authorization and learn the pt's portion of cost. A: Pt who will require skilled rehab at time of discharge P: [facility] accepted and working on one-time contract; GLUER MACHINE OPERATOR to update pt's family with OOP expense when authorization is received by [facility]. GLUER MACHINE OPERATOR to continue to follow. MAN Crawley
[2016-06-07] MEDS: Promethazine Inj 12.5 MG in Dextrose 5%-Pha MIX 50 ML IV PRN ×2 (10:51→23:44)
--- NOTE | 2016-06-07 13:05 | PCM.PNMED ---
Subjective Date of Service Jun 07, 2016 Subjective 89-year-old woman recently status post partial colectomy for diverticulitis, presents with acute respiratory failure with hypoxia. The patient seems dysphoric and complains of persistent nausea. Nausea has been present for several weeks, even prior to her surgery for diverticulitis. She is taking very little oral nutrition, and is significantly weak. Prior to her colectomy she was physically active with most ADLs. Son reports that she vomited yesterday which is unusual for her. She endorses abdominal pain generalized with some focus in bilateral upper quadrants. She describes the pain as continuous. She has no respiratory complaints. Exam Vital Signs Vital Sign - Last Date Time Temp Pulse Resp B/P Pulse Ox O2 Delivery O2 Flow Rate FiO2 06/07/16 12:06 80 20 94 Nasal Cannula 2.00 06/07/16 12:06 37.0 110/54 06/02/16 13:16 30 Intake and Output 06/06/16 06/06/16 06/07/16 Cumulative From/Thru 15:00 23:00 07:00 05/31/16 15:20 - 06/07/16 05:46 Intake Total 557 ml 300 ml 799 ml 51074 ml Output Total 2050 ml 1300 ml 14155 ml Balance 557 ml -1750 ml -501 ml -5661 ml Intake Oral 300 ml 0 ml 1677 ml IV Total 799 ml 6678 ml Tube Feeding 327 ml 600 ml Tube Irrigant 230 ml 1084 ml Output Urine Total 500 ml 400 ml 08585 ml Stool Total 700 ml 900 ml 2400 ml Emesis 850 ml 0 ml 850 ml # Bowel Movements 3 Exam General: Elderly woman with NG tube in mild distress HEENT: sclerae anicteric, oral mucosa moist Neck: no apparent JVD Chest: Generally clear to auscultation Cardiac: S1S2, no murmur Abdomen: BS diminished, mildly tender to palpate diffusely, left colostomy with stool in bag Extremities: No edema Neuro: Alert but mildly cognitively impaired, cranial nerves symmetric, motor strength 4/5 diffusely l IVs and Medications Medications Reviewed: Medications were reviewed in detail Lab and Diagnostics INR 2.2 Result Diagram: 06/04/16 1118 06/04/16 1118 X-Rays, CTs and MRIs PROCEDURE: CT ABDOMEN AND PELVIS WITH CONTRAST ([id number]) COMPARISON: [facility], CR, ABDOMEN 1 VIEW, 05/20/2016, 9:54. [facility], CT, ABDOMEN/PELVIS WITH CONTRAST, 05/17/2016, 15:26. [facility] , CR, ABDOMEN ACUTE SERIES, 05/17/2016, 12:47. [facility], CT, ABDOMEN/ PELVIS WITH CONTRAST, 03/19/2016, 12:30. [facility], CT, ABDOMEN/PELVIS WITH CONTRAST, 03/17/2016, 13:32. [facility], CT, ABDOMEN/PELVIS WITH CONTRAST, 02/09/2015, 10:15. [facility], RG, CT ABDOMEN/PELVIS WITH CONTRAST, 08/13/2004, 22:58. IMPRESSION: #1. Postsurgical changes compatible with partial colectomy and left lower quadrant colostomy formation. 2. No free intraperitoneal fluid or air. 3. No dilated loops of bowel. 4. Atherosclerosis including the coronary vasculature. 5. Bilateral pleural effusions. 6. Bibasilar lung consolidation which could represent compressive atelectasis, however infectious process cannot be excluded please correlate with clinical and laboratory data. 7. Bilateral adnexal cysts. 8. No evidence of abscess. 9. Hepatic steatosis. Dictated by: Coleen Laughlin MD, PhD on 05/31/2016 at 18:12 PROCEDURE: X-RAY KUB ([id number]) IMPRESSION: Nasogastric tube is now present, with tip in the gastric body. Dictated by: Kevyn Das M.D. on 06/04/2016 at 17:37 . Cardiac Echo Impressions Echocardiogram Report Name: MAXI AGUIAR Study Date: 06/01/2016 Interpretation Summary 1. Normal left ventricular size and wall thickness with overall preserved systolic function. 2. Normal right ventricular size and systolic function. 3. No significant valvular pathology appreciated. 4. Bilateral pleural effusions . Assessment & Plan Patient is an 89-year-old female with history of diverticulitis s/p partial colectomy with colostomy, dementia, atrial fibrillation presenting with cough and dyspnea and admitted for pneumonia and acute CHF exacerbation. Acute, and/or high risk problems: #. Persistent nausea, anorexia. The nausea has actually been going back even before her initial diagnosis C. difficile toxin colitis in 05/11. C. difficile toxin PCR during this admission ago was negative. Her ostomy is functioning and there is no apparent ileus on plain film. Stopped all antibiotics as there appears to be no active infection right now, diverticulitis, C. difficile toxin colitis, or probably even pneumonia. CAT scan of abdomen on 05/31 does not reveal anatomic explanation for GI complaints. Hepatobiliary labs have been unremarkable. - Repeat abdominal CAT scan today - Try to optimize antiemetic regimen without toxicity - hold tube feeds. - GI consultation - We would hope to improve her nausea and abdominal pain, increase her oral intake, and send her to a group home facility, probably [place], with tube feeds if necessary for 2-4 weeks to support her caloric recovery. #. History of diverticulitis s/p hemicolectomy. Present on admission. Presumed stable. Initial CT scan was unremarkable without evidence of anastomosis breakdown or diverticuli or diverticulitis. Her colectomy does not seem related to her persistent nausea and anorexia. - Follow bowel function clinically. #. Severe protein caloric malnutrition. The patient is currently doing well with a feeding tube in place since yesterday. Anticipate discharge to group home facility with a 2-4 week trial of tube feedings. #. Acute on chronic diastolic CHF exacerbation. Present on admission. Improved. - resume a baseline once daily dosing of oral Lasix. Resolved, stable and or chronic problems: #. Acute hypoxemic respiratory failure. Present on admission. This was primary reason for admission. Now resolved. Appeared to be multifactorial. She was Flu A positive. [place] to have possible pneumonia which may well be viral. Antibiotics were administered then stopped. Her respiratory status is improving overall. She has been treated for influenza A with full course of Tamiflu. #. Possible report of C. difficile toxin colitis. We sent a PCR off from her ostomy fluid and this is negative. #. Hypertension, chronic. Present on admission -Continue home losartan, carvedilol #. Atrial fibrillation, chronic. Present on admission. Heart rate feeds paced at 80 bpm. INR is been maintained in therapeutic range. -PT/INR in AM -Warfarin per pharmacy #. Dyslipidemia, chronic. Present on admission -Continue home statin #. Dementia, chronic. Present on admission Pain Evaluation: Pain not Controlled GI Prophylaxis: Not indicated VTE Prophylaxis: Theraputic Anticoag with Warfarin VTE Mechanical Devices: Intermittant Pneumatic CD Resuscitation Status: Limited Interventions Limited Interventions: Cardioversion/Defibrillation, Intubation w Mech Vent, BiPAP, Medications and IV Fluid Time spent 35 minutes spent in patient assessment, care coordination including review of data with call center consultant and counseling family members at bedside. Lito Rodriguez MD Jun 07, 2016 13:04
--- NOTE | 2016-06-07 13:39 | NUR ---
Transfer to [facility] Pt transferred to [facility] at 13:45. Report called to Dov Bui. One time dose of IV dilaudid given prior to transport for breakthrough pain after pt switched to PO Oxycodone.
--- NOTE | 2016-06-07 13:58 | DRSVH ---
PROCEDURE: CT ABDOMEN AND PELVIS WITH CONTRAST ([id number]) INDICATIONS: abdomen pain TECHNIQUE: After the administration of oral and intravenous contrast, 5 mm thick sections acquired from the diap hragms to the symphysis. 5 mm thick coronal and sagittal reformats were performed. For radiation do se reduction, the following was used: automated exposure control, adjustment of mA and/or kV accordi ng to patient size. COMPARISON: [facility], CT, CT ABD PELVIS W CON, 05/31/2016, 17:36. FINDINGS: Image quality: Excellent. ABDOMEN: Lung bases: Decreased, small bilateral pleural effusions and mild dependent bibasilar atelectasis. He art size is enlarged. Solid organs: Liver and spleen are normal in size and enhancement. Gallbladder is within normal cruz its. Biliary system is non-dilated. Pancreas enhances normally. No adrenal nodules. Kidneys are n ormal in size and enhancement, without hydronephrosis. Peritoneum and bowel: Stomach is nondistended. NGT is present. There is no significant duodenal dist ention. There are multiple moderately distended loops of mid small bowel within the abdomen pelvis. D istal ileus is decompressed. There is no discrete transition point between dilated and nondilated sma ll bowel. Appendix is not seen.: Is decompressed. Left lower quadrant colostomy is present. No free f luid or air. Nodes and vessels: No retroperitoneal or mesenteric adenopathy. Aorta and inferior vena cava are no rmal in caliber. Miscellaneous: No ventral hernias. PELVIS: Genitourinary: Urinary bladder is decompressed. Santacruz catheter is present. No change in bilateral adn exal cysts. Miscellaneous: No inguinal hernias or adenopathy. Bones: No suspicious bony lesions. No vertebral body compression fractures. IMPRESSION: 1. Small bowel obstruction, new since the prior examination. No focal transition point. 2. No change in bilateral adnexal cysts; further assessment with ultrasound is recommended. 3. Decreased bibasilar pleural-parenchymal opacities. Dictated by: Laura Howard M.D. on 06/07/2016 at 13:56 Approved by: Laura Howard M.D. on 06/07/2016 at 13:56
--- NOTE | 2016-06-07 14:19 | NUR ---
spiritual care: follow-family conversational visit with family in corridor. They offered updates and coping.
--- NOTE | 2016-06-07 17:09 | PCM.CHPMED ---
Subjective Date of Service: Jun 07, 2016 Provider requesting consult: Lito Rodriguez MD Primary Physician: Admitting Physician: Hector Espinosa MD Primary Care Physician: Cori Wu DO Attending Physician: Hector Espinosa MD Chief Complaint: Chief Complaint: Nausea History of Present Illness: Patient is an 89-year-old female with history of diverticulitis s/p recent partial colectomy now with colostomy, dementia, and atrial fibrillation who presented with persistent nausea, shortness of breath,productive cough, and respiratory distress, and was admitted for acute hypoxemic respiratory failure and possible pneumonia. The respiratory failure resolved but her nausea continued to be an issue. She states that her nausea has actually been going back even before her C. difficile diarrhea, diagnosed in 04/27/16. C. difficile toxin PCR during this admission was negative. CT abd/pelvis with contrast on 05/31 showed postsurgical changes of the partial colectomy and colostomy and hepatic steatosis, but no free intraperitoneal fluid or air, no dilated loops of bowel, and no other anatomic explanation for GI complaints. Her ostomy has been functioning and there is no apparent ileus on plain film. All antibiotics have now been stopped and she continues to have persistent nausea. According to her , she has been eating very poorly for the last 8 months and has been becoming progressively weaker. She reports generalized continuous abdominal pain somewhat worse in bilateral upper quadrants and persistent nausea with occasional vomiting. She denies blood in her stool. She denies fevers, chills, shortness of breath, coughing, wheezing. She denies NSAID use. She reports she has not had a colonoscopy in several years , possibly more than 10. She cannot remember the results of her last colonoscopy. Her father had colon cancer, diagnosed in his 50s. Brother with stomach cancer. Review of Systems: Comprehensive review of systems completed and negative except as detailed above. PMH Bedside Blood Glucose: 122 Allergies: Coded Allergies: simvastatin (Verified Allergy, Mild, 05/31/16) CAUSED COUGHING. NOT A TRUE ALLERGY Social History Occupation: Retired Hx Alcohol Use: NoHx Substance Use: NoHx Tobacco Use: No Smoking Status: Unknown if Ever Smoker Living Arrangement: [facility] ([facility]habilitation at [facility]) Exam Vital Signs Vital Sign - Last Date Time Temp Pulse Resp B/P Pulse Ox O2 Delivery O2 Flow Rate FiO2 1/12/17 12:06 80 20 94 Nasal Cannula 2.00 06/07/16 12:06 37.0 110/54 06/02/16 13:16 30 Intake and Output 06/06/16 06/06/16 06/07/16 Cumulative From/Thru 15:00 23:00 07:00 05/31/16 15:20 - 06/07/16 05:46 Intake Total 557 ml 300 ml 799 ml 05906 ml Output Total 2050 ml 1300 ml 84069 ml Balance 557 ml -1750 ml -501 ml -5661 ml Intake Oral 300 ml 0 ml 1677 ml IV Total 799 ml 6678 ml Tube Feeding 327 ml 600 ml Tube Irrigant 230 ml 1084 ml Output Urine Total 500 ml 400 ml 36397 ml Stool Total 700 ml 900 ml 2400 ml Emesis 850 ml 0 ml 850 ml # Bowel Movements 3 Additional Information: General: Somnolent but arousable, Cooperative, No Acute Distress. Chronically ill appearing. Head: Normal Eyes: PERRLA, EOMI Mouth: Mouth Normal Chest & Lungs: Chest Wall Normal, Clear to auscultation & percussion Cardiovascular: Exam Unremarkable, Regular Rate/Rhythm, Normal S1, Normal S2, No Murmurs/Rubs/Gallops Abdomen: RUQ and LLQ tenderness. Surgery incision mid-abdomen without erythema or discharge. Colostomy in place with green stool, Non-distended, No masses, Normoactive bowel tones, Soft Musculoskeletal: Unremarkable, Normal Range of Motion Extremities: No cyanosis/clubbing/edma bilat Neurological: Grossly Neurologically Intact, Normal Speech Lab and Diagnostics Result Diagram: 06/04/16 1118 06/04/16 1118 Assessment & Plan Assessment Patient is an 89-year-old female with history of diverticulitis s/p recent partial colectomy now with colostomy, dementia, and atrial fibrillation who was admitted for acute hypoxemic respiratory failure and possible pneumonia, which has mostly resolved. Gastroenterology was consulted for persistent nausea of unknown cause. 1. Persistent nausea - CT abd pelvis on 05/31/15 was negative for any intra-abdominal cause of nausea or abdominal pain. Agree with re-evaluation with repeat CT. - Repeat CT abd/pelvis with contrast pending. - Reglan 5 mg IV q6h - Zofran 4-8 mg q4h IV PRN 2. Diffuse abdominal pain - Pt presents with diffuse abdominal pain, worse in bilateral upper quadrants. LFTs were elevated so consider hepatic source. Also consider pancreatitis or gastritis. - Repeat CMP and lipase ordered - Await results of repeat abdominal CT - Continue Pepcid. 3. Elevated LFTs, acute. - Patient's AST increased from 36 to 51 and ALT increased from 21 to 34 on . Pt is on pravastatin, acetaminophen, and losartan, which can cause elevated LFTs. - Repeat CMP ordered - Lipase ordered 4. History of diverticulitis s/p hemicolectomy. Present on admission. Presumed stable. Initial CT scan was unremarkable without evidence of anastomosis breakdown or diverticuli or diverticulitis. Her colectomy does not seem related to her persistent nausea and anorexia. - Follow bowel function clinically. 5. History of C. difficile toxin colitis. - C diff PCR of ostomy fluid on 06/05/16 was negative. Problems: Pain Evaluation: Pain not Controlled GI Prophylaxis: Not indicated VTE Prophylaxis: Theraputic Anticoag with Warfarin VTE Mechanical Devices: Intermittant Pneumatic CD Resuscitation Status: Limited Interventions Limited Interventions: Cardioversion/Defibrillation, Intubation w Mech Vent, BiPAP, Medications and IV Fluid Attending Statement Patient seen and examined Please see resident note for details Plan as outlined above in his notes. Marco Zavala Jun 07, 2016 14:11 Mc Chisholm MD Jun 25, 2016 14:48
[2016-06-07 17:18] LABS: INR 3.89 ratio
--- NOTE | 2016-06-07 19:51 | NUR ---
Nausea/CT/INR Cardiac: Pt denies CP. Tele VPaced 80s underlying a-flutter Resp: Pt denies SOB at rest. sats mid 90s on 2L NC GI/: Nausea this AM at assessment. Pt given Ondansetron 8mg with no nausea relief 1/2 hour later. Promethazine not available on the floor, pharmacy called for dose and Metoclopromide 5mg IV given. Pt still complains of unrelieved nausea an hour after Metoclopromide. PO contrast being given slowly through NG tube for AM CT scan. CT called to postpone scan until pt was able to take more contrast. Promethazine up from pharmacy and given to pt with good effect. CT scan shows possible small bowel obstruction. Endoscopy to be scheduled, but INR is elevated. Warfarin held tonight. 650ml dark green liquid out of ostomy today, 550ml yohana urine out for nam. Neuro: oriented to person/place on AM this assessment. Pt very tired and very weak. Int:
[2016-06-08] VITALS (14 sets, daily range): BP systolic 126–180; BP diastolic 53–76; PULSE 78–81; RESP 13–19; O2SAT 97–99
--- NOTE | 2016-06-08 00:34 | NUR ---
Nausea/Back pain Pt stated she was nauseas and felt back pain lying supine. Nutritionist assisted pt to her left side and gave all PRN antiemetics ordered. Pt continued to state she did not feel relief. Pt's back massaged by financial underwriter. In 30 minutes, pt fell asleep.
[2016-06-08] MEDS: 0.9% Sodium Chloride 1,000 ML IV SCH (03:00)
[2016-06-08 03:32] LABS: INR 4.43 ratio
[2016-06-08] MEDS: Insulin LISPRO 300 Unit/3 mL Inj SUBQ SCH ×4 (08:00→22:00)
[2016-06-08] MEDS ORDERED: hydrALAZINE 20 mg/mL Inj IV PRN (08:10)
[2016-06-08] MEDS: Ondansetron 2 mg/mL 2 mL Inj IVPUSH PRN ×2 (09:49→22:23)
--- NOTE | 2016-06-08 10:33 | NUR ---
Elevated Systolic [place] doctor r/t elevated systolic BP beginning this shift. BP 180/68 before patient receiving PO medications via NG. Received orders for PRN Hydralazine. Systolic blood pressure after Scheduled blood pressure medications 145/73. c/o nausea and PRN Zofran given as ordered with effective results.
--- NOTE | 2016-06-08 11:42 | PCM.PNMED ---
Subjective Date of Service Jun 08, 2016 Subjective Pt had nausea throughout the night and reports continuing nausea today, as well as diffuse abdominal pain and weakness. She denies vomiting or any bowel movement. Denies fevers, chills, abdominal pain, SOB, coughing, or wheezing. Exam Vital Signs Vital Sign - Last Date Time Temp Pulse Resp B/P Pulse Ox O2 Delivery O2 Flow Rate FiO2 06/08/16 10:49 Supplement Oxygen 06/08/16 08:04 36.6 80 16 180/68 99 2.00 06/02/16 13:16 30 Intake and Output 06/07/16 06/07/16 06/08/16 Cumulative From/Thru 15:00 23:00 07:00 05/31/16 15:20 - 06/08/16 06:03 Intake Total 983 ml 480 ml 60366 ml Output Total 1200 ml 1200 ml 87168 ml Balance -217 ml -720 ml -6598 ml Intake Oral 100 ml 370 ml 2147 ml IV Total 883 ml 110 ml 7671 ml Tube Feeding 600 ml Tube Irrigant 1084 ml Output Urine Total 550 ml 425 ml 62108 ml Stool Total 650 ml 775 ml 3825 ml Emesis 850 ml # Bowel Movements 3 Exam General: Alert, Cooperative, Mild Distress due to nausea/pain. Chronically ill appearing. Head: Normal. NG tube in place. Eyes: PERRLA, EOMI Mouth: Mouth Normal Chest & Lungs: Chest Wall Normal, Clear to auscultation & percussion Cardiovascular: Exam Unremarkable, Regular Rate/Rhythm, Normal S1, Normal S2, No Murmurs/Rubs/Gallops Abdomen: Diffuse mild abdominal tenderness. Surgery incision mid-abdomen without erythema or discharge. Colostomy in place with green stool, Non- distended, No masses, Normoactive bowel tones, Soft Musculoskeletal: Unremarkable, Normal Range of Motion Extremities: No cyanosis/clubbing/edma bilat Neurological: Grossly Neurologically Intact, Normal Speech Lab and Diagnostics Result Diagram: 06/04/16 1118 06/07/16 1415 X-Rays, CTs and MRIs PROCEDURE: CT ABDOMEN AND PELVIS WITH CONTRAST ([id number]) COMPARISON: [facility], CR, ABDOMEN 1 VIEW, 05/20/2016, 9:54. [facility], CT, ABDOMEN/PELVIS WITH CONTRAST, 05/17/2016, 15:26. [facility] , CR, ABDOMEN ACUTE SERIES, 05/17/2016, 12:47. [facility], CT, ABDOMEN/ PELVIS WITH CONTRAST, 03/19/2016, 12:30. [facility], CT, ABDOMEN/PELVIS WITH CONTRAST, 03/17/2016, 13:32. [facility], CT, ABDOMEN/PELVIS WITH CONTRAST, 02/09/2015, 10:15. [facility], RG, CT ABDOMEN/PELVIS WITH CONTRAST, 08/13/2004, 22:58. IMPRESSION: #1. Postsurgical changes compatible with partial colectomy and left lower quadrant colostomy formation. 2. No free intraperitoneal fluid or air. 3. No dilated loops of bowel. 4. Atherosclerosis including the coronary vasculature. 5. Bilateral pleural effusions. 6. Bibasilar lung consolidation which could represent compressive atelectasis, however infectious process cannot be excluded please correlate with clinical and laboratory data. 7. Bilateral adnexal cysts. 8. No evidence of abscess. 9. Hepatic steatosis. Dictated by: Coleen Laughlin MD, PhD on 05/31/2016 at 18:12 PROCEDURE: X-RAY KUB ([id number]) IMPRESSION: Nasogastric tube is now present, with tip in the gastric body. Dictated by: Kevyn Das M.D. on 06/04/2016 at 17:37 . Cardiac Echo Impressions Echocardiogram Report Name: MAXI AGUIAR Study Date: 06/01/2016 Interpretation Summary 1. Normal left ventricular size and wall thickness with overall preserved systolic function. 2. Normal right ventricular size and systolic function. 3. No significant valvular pathology appreciated. 4. Bilateral pleural effusions . Assessment & Plan Patient is an 89-year-old female with history of diverticulitis s/p recent partial colectomy now with colostomy, dementia, and atrial fibrillation who was admitted for acute hypoxemic respiratory failure and possible pneumonia, which has mostly resolved. Gastroenterology was consulted for persistent nausea of unknown cause. Diffuse abdominal pain - Pt presents with diffuse abdominal pain, worse in bilateral upper quadrants. Lipase was mildly elevated at 67, but pancreas was normal on CT x2. CT abd pelvis on 05/31/15 was negative for any intra-abdominal cause of nausea or abdominal pain. Repeat CT abd/pelvis with contrast showed multiple moderately distended loops of mid small bowel within the abdomen pelvis with no discrete transition point between dilated and nondilated small bowel. While this is indicative of a small bowel obstruction, this seems less likely as she does not any change in her chronic nausea or abdominal pain despite the change from CT on 05/31, and she continues to move her bowels. However, we will continue to monitor this. DDx includes gastritis vs chronic pancreatitis vs small bowel obstruction. Her INR is 4.43 at this time, so we must wait until it has decreased before proceeding with upper endoscopy. Discussed the case with Dr. Chavis, who agrees to proceed with upper endoscopy on Saturday. Consider HIDA scan if upper endoscopy is negative. - Upper endoscopy planned when INR normalized - NG tube in place - Continue Pepcid. Persistent nausea - Her nausea is chronic and unchanged at this time. Will examine with upper endoscopy. If this is negative, recommend evaluating biliary function with HIDA scan. - Reglan 5 mg IV q6h - Zofran 4-8 mg q4h IV PRN Elevated LFTs, acute. Resolved. - Patient's AST increased from 36 to 51 and ALT increased from 21 to 34 on . LFTs have now normalized. Pt is on pravastatin, acetaminophen, and losartan , which can cause elevated LFTs. - Continue to monitor. Elevated lipase, acute. - Lipase was mildly elevated at 67 but pancreas was normal x2 on abd/pelvis CT. Likely not cause of nausea and abdominal pain, but consider chronic pancreatitis in absence of other findings. - Continue to monitor. History of diverticulitis s/p hemicolectomy. - Presumed stable. Initial CT scan was unremarkable without evidence of anastomosis breakdown or diverticuli or diverticulitis. Her colectomy does not seem related to her persistent nausea and anorexia. - Follow bowel function clinically. History of C. difficile toxin colitis. - C diff PCR of ostomy fluid on 06/05/16 was negative. GI Prophylaxis: Not indicated VTE Prophylaxis: Theraputic Anticoag with Warfarin VTE Mechanical Devices: Intermittant Pneumatic CD Resuscitation Status: Limited Interventions Limited Interventions: Cardioversion/Defibrillation, Intubation w Mech Vent, BiPAP, Medications and IV Fluid Attending Statement Patient seen and examined with the resident physician Agree with his note and plan above. Marco Zavala Jun 08, 2016 11:41 Mc Chisholm MD Jun 25, 2016 14:50
[2016-06-08] MEDS: MetoCLOpramide 5 mg/mL 2 mL Inj IVPUSH PRN (11:59)
--- NOTE | 2016-06-08 13:28 | NUR ---
NUTRITION FOLLOW-UP: ASSESS: 89 YO F admitted with pneumonia and CHF exacerbation. Pt had poor PO intake on full liquid diet and minimal PO intake prior to admit. Trickle TF started 06/04 and per RN tolerated well. TFs advanced to goal on 06/06, pt had multiple bouts of emesis and TFs placed on hold. Pt continues to have nausea. Per GI, pt may have SBO vs gastritis vs chronic pancreatitis. EGD to be done when INR normalizes. PMHx: Diverticulitis with perforated bowel status post hemicolectomy, CHF, HTN, dyslipidemia, A-fib, dementia. DIET: Full liquid. PO intake bites. NUTRITION SUPPORT: Jevity 1.5 @ 50 ml/hr to provide 1725 kcal, 73 g protein; meeting 100% calorie/protein needs. (ON HOLD) LABS: Glu 138, Ca 7.9, Albumin 2.9, Lipase 67 MEDICATIONS: Reviewed. Reglan. GI: Stool via colostomy 1550 ml 06/07 SKIN: No issues noted, melanie 17 ANTHROPOMETRICS: Current Wt: 64.5 kg, BMI: 23.7 kg/m2. Admit weight: 65.91 kg. IBW: 56.8 kg ESTIMATED NEEDS: Calories: 2917-8622 kcal/day (25-30 kcal/kg BW) Protein: 65-78 g/day (1.0-1.2 g/kg BW) Fluids: 1625-1950ml/day (25-30cc/kg) NUTRITION DIAGNOSIS: 1) Inadequate oral intake related to inability to consume sufficient energy, as evidenced by minimal PO intake x 4 days.-PERSISTS. INTERVENTION: 1) Restart enteral nutrition when appropriate. 2) If unable to restart enteral nutrition via mouth or tube, consider TPN. MONITOR/EVALUATE: EGD, Diet advance/tolerance, Nutrition support, PO intake, labs, GI/nutrition status. Follow per high nutrition risk guidelines.
[2016-06-08] MEDS: Promethazine Inj 12.5 MG in Dextrose 5%-Pha MIX 50 ML IV PRN (14:39)
--- NOTE | 2016-06-08 15:59 | NUR ---
Nausea Patient is alert and oriented X2. able to make needs known. stable vital signs. PRN Zofran given as ordered this AM with ineffective results. PRN Reglan given as ordered with ineffective results. PRN Phenergan give as ordered with effective results. patient watching TV and son at the bed side. No complaints of nausea after Phenergan PRN. Jean-Pierre paged doctor r/t son has questions/concerns r/t incoming procedures and current condition of the patient. Doctor at the bed side and speaking to family. New orders received for FFP and stat orders for INR after the completion of FFP. Called lab and lab also at the bed side for lab draw.
--- NOTE | 2016-06-08 16:24 | PCM.PNMED ---
Subjective Date of Service Jun 08, 2016 Subjective 89-year-old woman recently status post partial colectomy for diverticulitis, presents with acute respiratory failure with hypoxia. The patient seems dysphoric and complains of persistent nausea. Nausea has been present for several weeks, even months, prior to her surgery for diverticulitis. Family reports she is taking very little oral nutrition. Prior to her colectomy she was physically active with most ADLs. She endorses continuous nausea today. Abdomen pain seems less prominent, but is generally localized to upper quadrants bilaterally. He continues to cough intermittently Exam Vital Signs Vital Sign - Last Date Time Temp Pulse Resp B/P Pulse Ox O2 Delivery O2 Flow Rate FiO2 06/08/16 12:04 36.4 80 16 128/76 97 Nasal Cannula 2.00 06/02/16 13:16 30 Intake and Output 06/07/16 06/07/16 06/08/16 Cumulative From/Thru 15:00 23:00 07:00 05/31/16 15:20 - 06/08/16 06:03 Intake Total 983 ml 480 ml 24193 ml Output Total 1200 ml 1200 ml 65841 ml Balance -217 ml -720 ml -6598 ml Intake Oral 100 ml 370 ml 2147 ml IV Total 883 ml 110 ml 7671 ml Tube Feeding 600 ml Tube Irrigant 1084 ml Output Urine Total 550 ml 425 ml 87337 ml Stool Total 650 ml 775 ml 3825 ml Emesis 850 ml # Bowel Movements 3 Exam General: Elderly woman with NG tube in no acute distress HEENT: sclerae anicteric, oral mucosa moist Neck: no apparent JVD Chest: Generally clear to auscultation Cardiac: S1S2, no murmur Abdomen: BS present, mildly tender to palpate diffusely, left colostomy with stool in bag Extremities: No edema Neuro: Alert but mildly cognitively impaired, cranial nerves symmetric, no nystagmus or dysmetria IVs and Medications Medications Reviewed: Medications were reviewed in detail Lab and Diagnostics Result Diagram: 06/04/16 1118 06/07/16 1415 X-Rays, CTs and MRIs PROCEDURE: CT ABDOMEN AND PELVIS WITH CONTRAST ([id number]) COMPARISON: [facility], CR, ABDOMEN 1 VIEW, 05/20/2016, 9:54. [facility], CT, ABDOMEN/PELVIS WITH CONTRAST, 05/17/2016, 15:26. [facility] , CR, ABDOMEN ACUTE SERIES, 05/17/2016, 12:47. [facility], CT, ABDOMEN/ PELVIS WITH CONTRAST, 03/19/2016, 12:30. [facility], CT, ABDOMEN/PELVIS WITH CONTRAST, 03/17/2016, 13:32. [facility], CT, ABDOMEN/PELVIS WITH CONTRAST, 02/09/2015, 10:15. [facility], RG, CT ABDOMEN/PELVIS WITH CONTRAST, 08/13/2004, 22:58. IMPRESSION: #1. Postsurgical changes compatible with partial colectomy and left lower quadrant colostomy formation. 2. No free intraperitoneal fluid or air. 3. No dilated loops of bowel. 4. Atherosclerosis including the coronary vasculature. 5. Bilateral pleural effusions. 6. Bibasilar lung consolidation which could represent compressive atelectasis, however infectious process cannot be excluded please correlate with clinical and laboratory data. 7. Bilateral adnexal cysts. 8. No evidence of abscess. 9. Hepatic steatosis. Dictated by: Coleen Laughlin MD, PhD on 05/31/2016 at 18:12 PROCEDURE: X-RAY KUB ([id number]) IMPRESSION: Nasogastric tube is now present, with tip in the gastric body. Dictated by: Kevyn Das M.D. on 06/04/2016 at 17:37 PROCEDURE: CT ABDOMEN AND PELVIS WITH CONTRAST ([id number]) IMPRESSION: 1. Small bowel obstruction, new since the prior examination. No focal transition point. 2. No change in bilateral adnexal cysts; further assessment with ultrasound is recommended. 3. Decreased bibasilar pleural-parenchymal opacities. Dictated by: Laura Howard M.D. on 06/07/2016 at 13:56 . Cardiac Echo Impressions Echocardiogram Report Name: MAXI AGUIAR Study Date: 06/01/2016 Interpretation Summary 1. Normal left ventricular size and wall thickness with overall preserved systolic function. 2. Normal right ventricular size and systolic function. 3. No significant valvular pathology appreciated. 4. Bilateral pleural effusions . Assessment & Plan Patient is an 89-year-old female with history of diverticulitis s/p partial colectomy with colostomy, dementia, atrial fibrillation presenting with cough and dyspnea and admitted for pneumonia and acute CHF exacerbation. Acute, and/or high risk problems: #. Persistent nausea, anorexia. The nausea has actually been going back even before her initial diagnosis C. difficile toxin colitis in 05/11. C. difficile toxin PCR during this admission was negative. Her ostomy is functioning. Repeat CT scan on 06/07 suggested partial SBO but she is not distended and bowel is functioning. Stopped all antibiotics as there appears to be no active infection right now. Hepatobiliary labs have been unremarkable. Nausea complaint is constant but generally not associated with vomiting. Her weight is reduced by approximately 7 kg during the course of this hospitalization - Reverse INR to enable upper endoscopy on 06/09 - Step tube feed and nothing by mouth after midnight - Phenergan seems to be moderately helpful. Would avoid adding other phenothiazine antiemetics due to risk of dystonia. - We would hope to improve her nausea and abdominal pain, increase her oral intake, and send her to a prison facility, possibly with tube feeds if necessary for 2-4 weeks to support her caloric recovery. #. History of diverticulitis s/p hemicolectomy. Present on admission. Presumed stable. Initial CT scan was unremarkable without evidence of anastomosis breakdown or diverticuli or diverticulitis. Her colectomy does not seem related to her persistent nausea and anorexia. No SBO clinically. - Follow bowel function clinically. #. Severe protein caloric malnutrition. The patient is currently doing well with a feeding tube in place since yesterday. Anticipate discharge to prison facility with a 2-4 week trial of tube feedings. #. Acute on chronic diastolic CHF exacerbation. Present on admission. Improved. - resume a baseline once daily dosing of oral Lasix. Resolved, stable and or chronic problems: #. Acute hypoxemic respiratory failure. Present on admission. This was primary reason for admission. Now resolved. Appeared to be multifactorial. She was Flu A positive. Stark to have possible pneumonia which may well be viral. Antibiotics were administered then stopped. Her respiratory status is improving overall. She has been treated for influenza A with full course of Tamiflu. #. Possible report of C. difficile toxin colitis. We sent a PCR off from her ostomy fluid and this is negative. #. Hypertension, chronic. Present on admission -Continue home losartan, carvedilol #. Atrial fibrillation, chronic. Present on admission. Heart rate feeds paced at 80 bpm. INR is been maintained in therapeutic range. -PT/INR in AM -Warfarin per pharmacy is on hold tonight but will be resumed after her EGD #. Dyslipidemia, chronic. Present on admission -Continue home statin #. Dementia, chronic. Present on admission GI Prophylaxis: Not indicated VTE Prophylaxis: Theraputic Anticoag with Warfarin VTE Mechanical Devices: Intermittant Pneumatic CD Resuscitation Status: Limited Interventions Limited Interventions: [facility]io[facility]Defibrillation, [facility], Medications and IV Fluid Time spent 50 minutes spent in patient assessment in care coordination on the unit including review of data with consultants in counseling family at bedside. Lito Rodriguez MD Jun 08, 2016 16:24
[2016-06-08] MEDS ORDERED: 0.9% Sodium Chloride 250 ML ONE (17:15)
--- NOTE | 2016-06-08 19:26 | NUR ---
FFP per doctor orders Doctor orders to start FFP and stat INR after FFP completed. vital signs stable before FFP started and stable vital signs 15 minutes after FFP started. patient is alert and oriented X2. family at the bed side. afebrile. no sign and symptoms of blood transfusion noted or reported by patient/family. patient is watching TV. stat INR after FFP done and report given to on coming nurse. call son brain for any change in condition or procedures in the morning. BP 129/55, pulse 79, RR13, Temp 98.4, O2 2L 98% nasal cannula.
[2016-06-09] VITALS (17 sets, daily range): BP systolic 125–174; BP diastolic 41–75; PULSE 60–80; RESP 15–20; O2SAT 92–100
--- NOTE | 2016-06-09 02:01 | NUR ---
FFP/NAUSEA Pt was nauseated the majority of the night. Pt was repositioned, wet cloth to forehead and received PRN zofran. Pt received 4 units of FFP. No transfusion reaction noted. 2 RN checks on all units administered. STAT INR to be ordered after 4th unit complete. Vitals stable, IV patent, colostomy producing thin green stool. No other issues noted at this time.
[2016-06-09] MEDS: Ondansetron 2 mg/mL 2 mL Inj IVPUSH PRN ×3 (04:29→21:04)
[2016-06-09 05:07] LABS: INR 2.09 ratio
[2016-06-09] MEDS ORDERED: 0.9% Sodium Chloride 250 ML IV PRN (07:15)
[2016-06-09] MEDS: Insulin LISPRO 300 Unit/3 mL Inj SUBQ SCH ×4 (08:00→22:00)
--- NOTE | 2016-06-09 11:25 | PCM.HPANE ---
Patient Data Surgeon Admitting Provider:Hector Espinosa MD Attending Provider:Hector Espinosa MD Primary Care Physician:Cori Wu DO Other Provider: Reason for Visit [facility] Pneumonia, Bilateral W/Pleural Effusions Ht/WT & BMI Height (Feet): 5 Height (Inches): 5.00 Weight (Kilograms): 64.800 Body Mass Index 26.08 Allergies Coded Allergies: simvastatin (Verified Allergy, Mild, 05/31/16) CAUSED COUGHING. NOT A TRUE ALLERGY Diabetes History Current Bedside Blood Glucose: 139 Medications Reported Medications Rivastigmine 13.3 Mg/24 Hour Patch.td241 Patch TD DAILY #30 05/31/16 Ranitidine 300 Mg Jenxgn862 Mg PO DAILY #30 05/31/16 Pravastatin 40 Mg Jfvlpb08 Mg PO DAILY #90 05/31/16 Oxybutynin Chloride ER 10 Mg Tab.er.2410 Mg PO DAILY #90 05/31/16 Cetirizine HCl (24Hour Allergy)10 Mg Zybnvr93 Mg PO DAILY #30 05/31/16 Carvedilol 25 Mg Wofbrn59 Mg PO BID #180 05/31/16 Latanoprost 2.5 Ml Drops1 Drop AFFECT_EYE HS #3 05/31/16 Trazodone 50 Mg Hglocp78 Mg PO HS #30 05/31/16 Metronidazole (Flagyl)500 Mg Xqwhlc901 Mg PO TID #18 05/31/16 Losartan Potassium 25 Mg Iehxpm27 Mg PO BID #180 05/31/16 Ciprofloxacin (Cipro)500 Mg Yxbpcv195 Mg PO BID #10 05/31/16 Hydrocodone-Acetaminophen 5-325 mg 1 Each Tablet1 Tab PO Q6H PRN For Pain #10 05/31/16 [Auralgan] No Conflict Check14 Ml AFFECT_EAR Q4H PRN For Pain 05/31/16 Ondansetron ODT 4 Mg Tab.rapdis8 Mg PO Q6H PRN For Nausea #20 05/31/16 Acetaminophen 325 Mg Saujur627 Mg PO Q4H PRN fever/pain Ref 0 05/31/16 History Hx of Heart Problems?: Yes Cardiovascular History: Positive for:: Irregular Heartbeat History Blood Transfusions: Denies:: Blood Transfusions Bedside Blood Glucose: 139 Occupation: Retired Hx Alcohol Use: NoHx Substance Use: No Smoking Status: Unknown if Ever Smoker Stop/Bang RAPHAEL Risk Assessment: Low Risk, <3 Yes Risk Assessment Category Category 1A: Patient has history of documented sleep apnea, and HAS NOT received any narcotic, sedative or anesthesia administration during this stay. Category 1B: Patient has history of documented sleep apnea, and HAS received any narcotic , sedative or anesthesia administration during this stay Category 2: Patient has SUSPECTED Obstructive Sleep Apnea, and HAS received any narcotic , sedative or anesthesia administration during this stay. Category 3: Patient has SUSPECTED Obstructive Sleep Apnea and HAS NOT received narcotic, sedative or anesthesia administration during this stay. Category 4: Outpatient in Procedural Areas with known sleep apnea or who screen positive for High Risk via the STOP/BANG questionnaire. Exam Exam Vital Signs Vital Signs Date Time Temp Pulse Resp B/P Pulse Ox O2 Delivery O2 Flow Rate FiO2 06/09/16 10:58 36.4 80 18 165/70 06/09/16 10:15 36.4 80 15 166/68 06/09/16 10:02 80 06/09/16 09:30 36.4 80 18 165/65 06/09/16 08:30 Supplement Oxygen 06/09/16 08:00 36.9 70 16 152/69 97 Nasal Cannula 2.00 06/09/16 05:19 72 06/09/16 03:37 Supplement Oxygen General Appearance: Alert, Oriented X3, Cooperative, No Acute Distress HEENT/AIRWAY: MP 2 Lungs: Clear to Auscultation, Normal Air Movement Heart: Exam Unremarkable, Regular Rate/Rhythm, No Murmurs/Rubs/Gallops Additional Information rales and ronchi. productive cough Meds/Labs/Diagnostics Admission Meds Current Medications Sodium Chloride (Normal Saline) 250 ml @ ud STK-MED ONCE .ROUTE Last administered on 06/08/16t 18:17; Start 06/08/16 at 17:15; Stop 06/08/16 at 17:16 ; Status DC Bedside Blood Glucose: 139 Labs Test 05/31/16 15:05 05/31/16 16:12 05/31/16 18:01 05/31/16 20:38 Magnesium Level 1.7mg/dL (1.6-2.6) Troponin T < 0.010ug/L (0.0-0.011) Pro-B-Type Natriuretic Peptide 5749pg/mL (0-738) Urine Color Yellow (YELLOW) Urine Appearance Hazy (CLEAR,HAZY) Urine pH 6.5 (5.0-8.0) Urine Specific [place] >1.030 (1.003-1.035) Urine Protein Tracemg/dL (NEG,TRACE) Urine Glucose (UA) Negativemg/dL (NEGATIVE) Urine Ketones Tracemg/dL (NEGATIVE) Urine Occult Blood Negative (NEGATIVE) Urine Nitrite Negative (NEGATIVE) Urine Bilirubin Negative (NEGATIVE) Urine Urobilinogen Normalmg/dL (NORMAL) Urine Leukocyte Esterase Negative (NEGATIVE) Urine RBC 0-2/hpf (0-2) Urine WBC 0-5/hpf (0-5) Urine Epithelial Cells Few/hpf (NONE-MOD) Urine Crystals None seen (NONE SEEN) Urine Bacteria Few/hpf (NONE-FEW) Urine Hyaline Casts Occasional/lpf (NONE) Urine Granular Casts None seen (NONE SEEN) Urine Waxy Casts None seen (NONE SEEN) Urine Red Blood Cell Casts None seen (NONE SEEN) Urine White Blood Cell Casts None seen (NONE SEEN) Urine Mucus Present (None Seen) Urine Trichomonas None seen (NONE SEEN) Urine Yeast None (NONE SEEN) Urinalysis Comment None Urine Culture Reflexed Not indicated Lactic Acid Level 1.2mmol/L (0.4-2.0) Hold Chris Top Tube Received (Received) Test 05/31/16 21:06 05/31/16 22:05 06/01/16 00:00 06/01/16 02:25 Urine Legionella pneumophilia Ag Negative (Negative) Hold Urine Received (Received) Neutrophils (%) (Auto) 95.9% (40-74) Lymphocytes (%) (Auto) 1.5% (14-46) Monocytes (%) (Auto) 2.2% (4-12) Eosinophils (%) (Auto) 0% (0-5) Basophils (%) (Auto) 0.1% (0-3) Procalcitonin 1.56ng/mL (See Comment) Test 06/04/16 11:18 06/07/16 14:15 06/09/16 04:25 White Blood Count 5.7th/mm3 (3.8-10.1) Red Blood Count 3.97mil/mm3 (3.90-5.20) Hemoglobin 12.0g/dL (12.0-15.6) Hematocrit 37.2% (35.0-46.0) Mean Corpuscular Volume 93.7fL (81-100) Mean Corpuscular Hemoglobin 30.2pg (27.0-35.0) Mean Corpuscular Hemoglobin Concent 32.3% (32.0-37.0) Red Cell Distribution Width 15.2% (12.3-15.4) Platelet Count 249bil/L (150-400) Sodium Level 140mEq/L (134-144) Potassium Level 3.8mEq/L (3.5-5.2) Chloride Level 103mEq/L (97-108) Carbon Dioxide Level 23mmol/L (18-29) Blood Urea Nitrogen 20mg/dL (8-27) Creatinine 0.77mg/dL (0.57-1.00) Estimat Glomerular Filtration Rate 101mL/min (>59) Glucose Level 138mg/dL (60-99) Calcium Level 7.9mg/dL (8.5-10.1) Total Bilirubin 0.4mg/dL (0.0-1.2) Aspartate Amino Transf (AST/SGOT) 37U/L (0-50) Alanine Aminotransferase (ALT/SGPT) 28U/L (0-32) Alkaline Phosphatase 36U/L (25-165) Total Protein 5.5g/dL (6.4-8.4) Albumin 2.9g/dL (3.4-5.0) Lipase 67U/L (13-60) Prothrombin Time 22.7sec (8.1-12.5) Prothromb Time International Ratio 2.09ratio Plan Impression Patient chart reviewed, patient interviewed and anesthestic plan with risks, benefits, and alternatives discussed, and informed consent obtained. ASA Physical Status: ASA3 Severe Disease Anesthetic Plan: MAC Bene/Risks/Altern/Consents: Yes HP Complete Prior to Induction: Yes Other long history of gastrontestinal problems including loss of appetite. Colectomy ostomy. here with pleural effusion and poor respiratory function. minimal sedation indicated for this lady who also suffers from dementia. p Permit from her . Sathish Boyd MD Jun 09, 2016 11:25
[2016-06-09] MEDS ORDERED: Propofol 10,000 mCg/mL 20 mL Inj ONE (12:13)
--- NOTE | 2016-06-09 14:09 | PCM.ANEP1 ---
Post Anesthesia Phase 1 PACU Phase 1 Assessment Date of Service: Jun 07, 2016 Vital Signs Vital Signs Date Time Temp Pulse Resp B/P Pulse Ox O2 Delivery O2 Flow Rate FiO2 06/09/16 12:39 36.5 80 19 169/65 97 Nasal Cannula 06/09/16 11:29 36.4 60 16 174/75 06/09/16 10:58 36.4 80 18 165/70 06/09/16 10:15 36.4 80 15 166/68 06/09/16 10:02 80 06/09/16 09:30 36.4 80 18 165/65 06/09/16 08:30 Supplement Oxygen 06/09/16 08:00 36.9 70 16 152/69 97 Nasal Cannula 2.00 Anesthetic Administered: MAC Level of Alertness: Drowsy, not talking DAVALOS's with Equal Strength: Yes Pain: No (Nausea > pain; abdomen--unrated; back pain) Pain Scale Score: 0 Lungs: Clear to Auscultation, Normal Air Movement Sathish Boyd MD Jun 09, 2016 14:09
--- NOTE | 2016-06-09 15:26 | ENDO ---
[address] [address] ENDOSCOPY PROCEDURE PATIENT: MAXI AGUIAR : 1925 MR#: [id number] ADMIT: 05/31/2016 JOB ID: [id number] PROCEDURE: Esophagogastroduodenoscopy. INDICATION: Chronic nausea and abdominal pain. ANESTHESIA: Please see anesthesia report for details regarding ASA classification, Mallampati score, and medications. INSTRUMENT USED: GIF H 180 J. PROCEDURE DETAILS: The endoscopy cart was brought into the patient's room after informed consent was obtained from the patient's . Next, the patient was monitored with continuous pulse oximeter, telemetry, and blood pressure monitoring, and was placed on oxygen via nasal cannula. A bite block was placed. The standard EGD scope was then inserted through the bite block and advanced under direct visualization to the second portion of the duodenum without difficulty. FINDINGS: 1. Normal appearing duodenal bulb, first and second portion. Bile-stained mucosa was noted throughout the examined portion of the duodenum. 2. Normal-appearing pylorus, antrum, and gastric body. 3. Retroflexed views in the gastric body revealed a normal-appearing cardia and fundus. A single biopsy was obtained to evaluate for H. pylori. 4. The GE junction was regular. 5. At 28 cm there was an aphthous ulcer. The remainder of the esophagus otherwise appeared unremarkable. IMPRESSION: Aphthous ulcer 28 cm, otherwise normal-appearing exam. Normal exam from the esophagus to second portion of the duodenum. Multiple random biopsies were not obtained throughout the antrum and gastric body as there was more than expected bleeding with a single biopsy that was obtained to evaluate for H. pylori. COMPLICATIONS: Immediately none. ESTIMATED BLOOD LOSS: Less than 5 mL.
--- NOTE | 2016-06-09 16:34 | NUR ---
Social Work: Continued discharge Planning Field Project Manager called [facility] for an update. [facility] admissions [facility] clinical. linotype worker faxed updated clinical to [facility]. Field Project Manager will continue to follow. Alejandro Granda LMSW, ACM
--- NOTE | 2016-06-09 17:19 | NUR ---
Social Work: IMM Patient gave verbal consent to sign IMM
--- NOTE | 2016-06-09 17:45 | NUR ---
Nausea/ENDO The pt continued to struggle with nausea today. The max doses of zofran were given, and the pt would forget, resulting in frequent requests for more. Re-direction, distraction and ice chips do seem to help tamper the lingering nausea. An upper endo scope was done this afternoon with an esophageal ulcer noted. The prior NG tube was removed during the scope, and a new tube was placed and is patent. Addendum: 06/09/16 at 1747 by GABO CHEN RN 4 unites of FFP were given this morning.
--- NOTE | 2016-06-09 17:52 | PCM.PNMED ---
Subjective Date of Service Jun 09, 2016 Subjective 89-year-old woman recently status post partial colectomy for diverticulitis, presented with acute respiratory failure with hypoxia due to influenza and possible postviral pneumonia. The patient seems dysphoric and complains of persistent nausea. Nausea has been present for several weeks, even months, prior to her surgery for diverticulitis. Family reports she is taking very little oral nutrition. Prior to her colectomy she was physically active with most ADLs. She endorses continuous nausea today. Abdomen pain seems less prominent, but is generally localized to upper quadrants bilaterally. No distention. No respiratory complaints. Moderately cognitively impaired. Exam Vital Signs Vital Sign - Last Date Time Temp Pulse Resp B/P Pulse Ox O2 Delivery O2 Flow Rate FiO2 06/09/16 17:03 36.8 80 19 143/61 96 Nasal Cannula 2.00 Intake and Output 06/08/16 06/08/16 06/09/16 Cumulative From/Thru 15:00 23:00 07:00 05/31/16 15:20 - 06/09/16 05:14 Intake Total 1026 ml 1390 ml 36414 ml Output Total 2050 ml 1250 ml 12800 ml Balance -1024 ml 140 ml -7482 ml Intake Oral 300 ml 340 ml 2787 ml IV Total 726 ml 850 ml 9247 ml Tube Feeding 600 ml FFP 200 ml 200 ml Tube Irrigant 1084 ml Output Urine Total 1800 ml 750 ml 39176 ml Stool Total 250 ml 500 ml 4575 ml Emesis 850 ml # Bowel Movements 3 Exam General: Elderly woman with NG tube in no acute distress HEENT: sclerae anicteric, oral mucosa dry Neck: no apparent JVD Chest: Generally clear to auscultation Cardiac: S1S2, no murmur Abdomen: BS present, mildly tender to palpate upper quadrants, left colostomy with stool in bag Extremities: No edema Neuro: Alert but mildly cognitively impaired, cranial nerves symmetric, no nystagmus or dysmetria IVs and Medications Medications Reviewed: Medications were reviewed in detail Lab and Diagnostics Result Diagram: 06/04/16 1118 06/07/16 1415 X-Rays, CTs and MRIs PROCEDURE: CT ABDOMEN AND PELVIS WITH CONTRAST ([id number]) COMPARISON: [facility], CR, ABDOMEN 1 VIEW, 05/20/2016, 9:54. [facility], CT, ABDOMEN/PELVIS WITH CONTRAST, 05/17/2016, 15:26. [facility] , CR, ABDOMEN ACUTE SERIES, 05/17/2016, 12:47. [facility], CT, ABDOMEN/ PELVIS WITH CONTRAST, 03/19/2016, 12:30. [facility], CT, ABDOMEN/PELVIS WITH CONTRAST, 03/17/2016, 13:32. [facility], CT, ABDOMEN/PELVIS WITH CONTRAST, 02/09/2015, 10:15. [facility], RG, CT ABDOMEN/PELVIS WITH CONTRAST, 08/13/2004, 22:58. IMPRESSION: #1. Postsurgical changes compatible with partial colectomy and left lower quadrant colostomy formation. 2. No free intraperitoneal fluid or air. 3. No dilated loops of bowel. 4. Atherosclerosis including the coronary vasculature. 5. Bilateral pleural effusions. 6. Bibasilar lung consolidation which could represent compressive atelectasis, however infectious process cannot be excluded please correlate with clinical and laboratory data. 7. Bilateral adnexal cysts. 8. No evidence of abscess. 9. Hepatic steatosis. Dictated by: Coleen Laughlin MD, PhD on 05/31/2016 at 18:12 PROCEDURE: X-RAY KUB ([id number]) IMPRESSION: Nasogastric tube is now present, with tip in the gastric body. Dictated by: Kevyn Das M.D. on 06/04/2016 at 17:37 PROCEDURE: CT ABDOMEN AND PELVIS WITH CONTRAST ([id number]) IMPRESSION: 1. Small bowel obstruction, new since the prior examination. No focal transition point. 2. No change in bilateral adnexal cysts; further assessment with ultrasound is recommended. 3. Decreased bibasilar pleural-parenchymal opacities. Dictated by: Laura Howard M.D. on 06/07/2016 at 13:56 . Cardiac Echo Impressions Echocardiogram Report Name: MAXI AGUIAR Study Date: 06/01/2016 Interpretation Summary 1. Normal left ventricular size and wall thickness with overall preserved systolic function. 2. Normal right ventricular size and systolic function. 3. No significant valvular pathology appreciated. 4. Bilateral pleural effusions . Assessment & Plan Patient is an 89-year-old female with history of diverticulitis s/p partial colectomy with colostomy, dementia, atrial fibrillation presenting with cough and dyspnea and admitted for pneumonia and acute CHF exacerbation. Acute, and/or high risk problems: #. Persistent nausea, anorexia. The nausea has actually been going back even before her initial diagnosis C. difficile toxin colitis in 05/11. C. difficile toxin PCR during this admission was negative. Her ostomy is functioning. Repeat CT scan on 06/07 suggested partial SBO but she is not distended and bowel is functioning. Stopped all antibiotics as there appears to be no active infection right now. Hepatobiliary labs have been unremarkable. Nausea complaint is constant but generally not associated with vomiting. Her weight is reduced by approximately 6-7 kg during the course of this hospitalization. Upper endoscopy performed 06/09 shows no pathology. - Proceed with HIDA scan to rule out gallbladder pathology, likely on Saturday - Phenergan seems to be moderately helpful. Would avoid adding other phenothiazine antiemetics due to risk of dystonia. - Resume tube feeding - We would hope to improve her nausea and abdominal pain, increase her oral intake, and send her to a custodial facility, possibly with tube feeds if necessary for 2-4 weeks to support her caloric recovery. #. History of diverticulitis s/p hemicolectomy. Present on admission. Presumed stable. Initial CT scan was unremarkable without evidence of anastomosis breakdown or diverticuli or diverticulitis. Her colectomy does not seem related to her persistent nausea and anorexia. No SBO clinically. - Follow bowel function clinically. #. Severe protein caloric malnutrition. The patient is currently doing well with a feeding tube in place since yesterday. Anticipate discharge to custodial facility with a 2-4 week trial of tube feedings. #. Acute on chronic diastolic CHF exacerbation. Present on admission. Improved. -Holding Lasix. Resolved, stable and or chronic problems: #. Acute hypoxemic respiratory failure. Present on admission. This was primary reason for admission. Now resolved. Appeared to be multifactorial. She was Flu A positive. [place] to have possible pneumonia which may well be viral. Antibiotics were administered then stopped. Her respiratory status is improving overall. She has been treated for influenza A with full course of Tamiflu. #. Possible report of C. difficile toxin colitis. We sent a PCR off from her ostomy fluid and this is negative. #. Hypertension, chronic. Present on admission -Continue home losartan, carvedilol #. Atrial fibrillation, chronic. Present on admission. Heart rate feeds paced at 80 bpm. INR is been maintained in therapeutic range. -PT/INR in AM -Warfarin per pharmacy was on hold tonight but will be - resumed warfarin after her EGD #. Dyslipidemia, chronic. Present on admission - Holding home statin present #. Dementia, chronic. Present on admission Pain Evaluation: Adequate Pain Control GI Prophylaxis: Not indicated VTE Prophylaxis: Theraputic Anticoag with Warfarin VTE Mechanical Devices: Intermittant Pneumatic CD Resuscitation Status: Limited Interventions Limited Interventions: Cardioversion/Defibrillation, Intubation w Mech Vent, BiPAP, Medications and IV Fluid Time spent 35 minutes were spent in patient assessment in care coordination including review of data with consultants in counseling patient and family at bedside. Lito Rodriguez MD Jun 09, 2016 17:52
[2016-06-10] VITALS: BP 122/53; PULSE 80; RESP 16; O2SAT 96
[2016-06-10] MEDS: Ondansetron 2 mg/mL 2 mL Inj IVPUSH PRN ×5 (03:28→22:03)
--- NOTE | 2016-06-10 03:49 | NUR ---
Nausea/Tube Feed Pt still c/o of nausea 8mg PRN Zofran administered x2 this shift and somewhat effective, pt has had this persistent nausea for several months. Tube feeding restarted today per Dr. Rodriguez's order. Pt started on Jevity 1.5 at 10mL/hr and will increase 10mL/hr q6 until at goal of 50mL hour. Pt currently @ 20mL/hr and tolerating. VSS and Tele Vpaced 70's to 80's with underlying Aflutter. Pt is tolerating and requesting Q2 turning.
[2016-06-10 03:53] LABS: BASOPHILS % (AUTO) 0.2 % (0-3); EOSINOPHILS % (AUTO) 2.5 % (0-5); MONOCYTES % (AUTO) 10.2 % (4-12); Mean Corpuscular Hemoglobin 29.5 pg (27.0-35.0); Mean Corpuscular Volume 93.2 fL (81-100); NEUTROPHILS % (AUTO) 74.1 % (40-74); Platelet Count 158 bil/L (150-400)
[2016-06-10 04:11] LABS: INR 1.85 ratio
[2016-06-10 05:41] VITALS: PULSE 80
[2016-06-10] MEDS ORDERED: Potassium Chloride 20 mEq SR Tablet PO ONE (07:35)
[2016-06-10 07:57] VITALS: BP 137/54; PULSE 80; RESP 16; O2SAT 96
[2016-06-10] MEDS: Insulin LISPRO 300 Unit/3 mL Inj SUBQ SCH ×4 (08:00→21:19)
[2016-06-10] MEDS ORDERED: Donnatal-Lido-Mylant 1:1:1 15 mL Syringe PO PRN (14:10)
--- NOTE | 2016-06-10 14:18 | PCM.PNMED ---
Subjective Date of Service Jun 10, 2016 Subjective 89-year-old woman recently status post partial colectomy for diverticulitis, presented with acute respiratory failure with hypoxia due to influenza and possible postviral pneumonia. The patient complains of persistent nausea. Nausea has been present for weeks, even months, prior to her c. difficile, surgery for diverticulitis. Family reports she is taking very little oral nutrition since late April. Prior to that time her eating pattern was highly variable and weight was generally stable. Prior to her colectomy she was physically active with most ADLs. Course of nausea was not changed significantly by surgery for diverticulitis. She endorses continuous nausea today. Abdomen pain has been present but seems less prominent, generally localized to upper quadrants bilaterally. No distention. She continues to have a wet sounding minimally productive cough. Alert but moderately cognitively impaired. Exam Vital Signs Vital Sign - Last Date Time Temp Pulse Resp B/P Pulse Ox O2 Delivery O2 Flow Rate FiO2 06/10/16 07:57 36.6 80 16 137/54 96 Nasal Cannula 1.00 Intake and Output 06/09/16 06/09/16 06/10/16 Cumulative From/Thru 15:00 23:00 07:00 05/31/16 15:20 - 06/10/16 05:10 Intake Total 897 ml 987 ml 0 ml 76598 ml Output Total 400 ml 600 ml 75346 ml Balance 897 ml 587 ml -600 ml -6598 ml Intake Oral 0 ml 2787 ml IV Total 50 ml 987 ml 66247 ml Tube Feeding 600 ml FFP 847 ml 1047 ml Tube Irrigant 1084 ml Output Urine Total 400 ml 300 ml 85196 ml Stool Total 300 ml 4875 ml Emesis 850 ml # Voids 1 1 # Bowel Movements 3 Exam General: Elderly woman with NG tube feeding HEENT: sclerae anicteric, oral mucosa dry Chest: Poor inspiratory effort, some basilar crackles, generally clear to auscultation Cardiac: S1S2, no murmur Abdomen: BS present, no significant tenderness, left colostomy with stool in bag Extremities: No edema Neuro: Alert to voice and questions, short-term memory impaired, cranial nerves symmetric, no nystagmus or dysmetria IVs and Medications Medications Reviewed: Medications were reviewed in detail Lab and Diagnostics Result Diagram: 06/10/16 0327 06/10/16326 X-Rays, CTs and MRIs PROCEDURE: CT ABDOMEN AND PELVIS WITH CONTRAST ([id number]) COMPARISON: [facility], CR, ABDOMEN 1 VIEW, 05/20/2016, 9:54. [facility], CT, ABDOMEN/PELVIS WITH CONTRAST, 05/17/2016, 15:26. [facility] , CR, ABDOMEN ACUTE SERIES, 05/17/2016, 12:47. [facility], CT, ABDOMEN/ PELVIS WITH CONTRAST, 03/19/2016, 12:30. [facility], CT, ABDOMEN/PELVIS WITH CONTRAST, 03/17/2016, 13:32. [facility], CT, ABDOMEN/PELVIS WITH CONTRAST, 02/09/2015, 10:15. [facility], , CT ABDOMEN/PELVIS WITH CONTRAST, 08/13/2004, 22:58. IMPRESSION: #1. Postsurgical changes compatible with partial colectomy and left lower quadrant colostomy formation. 2. No free intraperitoneal fluid or air. 3. No dilated loops of bowel. 4. Atherosclerosis including the coronary vasculature. 5. Bilateral pleural effusions. 6. Bibasilar lung consolidation which could represent compressive atelectasis, however infectious process cannot be excluded please correlate with clinical and laboratory data. 7. Bilateral adnexal cysts. 8. No evidence of abscess. 9. Hepatic steatosis. Dictated by: Coleen Laughlin MD, PhD on 05/31/2016 at 18:12 PROCEDURE: X-RAY KUB ([id number]) IMPRESSION: Nasogastric tube is now present, with tip in the gastric body. Dictated by: Kevyn Das M.D. on 06/04/2016 at 17:37 PROCEDURE: CT ABDOMEN AND PELVIS WITH CONTRAST ([id number]) IMPRESSION: 1. Small bowel obstruction, new since the prior examination. No focal transition point. 2. No change in bilateral adnexal cysts; further assessment with ultrasound is recommended. 3. Decreased bibasilar pleural-parenchymal opacities. Dictated by: Laura Howard M.D. on 06/07/2016 at 13:56 . Cardiac Echo Impressions Echocardiogram Report Name: MAXI AGUIAR Study Date: 06/01/2016 Interpretation Summary 1. Normal left ventricular size and wall thickness with overall preserved systolic function. 2. Normal right ventricular size and systolic function. 3. No significant valvular pathology appreciated. 4. Bilateral pleural effusions . Additional Diagnostics PROCEDURE: Esophagogastroduodenoscopy. INDICATION: Chronic nausea and abdominal pain. ANESTHESIA: Please see anesthesia report for details regarding ASA classification, Mallampati score, and medications. INSTRUMENT USED: GIF H 180 J. PROCEDURE DETAILS: The endoscopy cart was brought into the patient's room after informed consent was obtained from the patient's . Next, the patient was monitored with continuous pulse oximeter, telemetry, and blood pressure monitoring, and was placed on oxygen via nasal cannula. A bite block was placed. The standard EGD scope was then inserted through the bite block and advanced under direct visualization to the second portion of the duodenum without difficulty. FINDINGS: 1. Normal appearing duodenal bulb, first and second portion. Bile-stained mucosa was noted throughout the examined portion of the duodenum. 2. Normal-appearing pylorus, antrum, and gastric body. 3. Retroflexed views in the gastric body revealed a normal-appearing cardia and fundus. A single biopsy was obtained to evaluate for H. pylori. 4. The GE junction was regular. 5. At 28 cm there was an aphthous ulcer. The remainder of the esophagus otherwise appeared unremarkable. IMPRESSION: Aphthous ulcer 28 cm, otherwise normal-appearing exam. Normal exam from the esophagus to second portion of the duodenum. Multiple random biopsies were not obtained throughout the antrum and gastric body as there was more than expected bleeding with a single biopsy that was obtained to evaluate for H. pylori. COMPLICATIONS: Immediately none. ESTIMATED BLOOD LOSS: Less than 5 mL. Mc Chisholm MD 06/09/16 9804 . Assessment & Plan Patient is an 89-year-old female with history of diverticulitis s/p partial colectomy with colostomy, dementia, atrial fibrillation presenting with cough and dyspnea and admitted for pneumonia and acute CHF exacerbation. Acute, and/or high risk problems: #. Persistent nausea, anorexia. The nausea and anorexia predating her initial diagnosis C. difficile toxin colitis in 05/11. C. difficile toxin PCR negative during current admission. Surgery for diverticular abscess had no impact on nausea and anorexia. Her ostomy is functioning. Repeat CT scan on 06/07 suggested partial SBO but she did not have clinical symptoms of SBO. Stopped all antibiotics as there appears to be no active infection right now. Hepatobiliary labs have been unremarkable. Nausea complaint is constant but generally not associated with vomiting. Her weight is reduced by approximately 6-7 kg during the course of this hospitalization. Upper endoscopy performed shows no significant pathology. Medications is been minimized, with no apparent impact on nausea. - Proceed with HIDA scan to rule out gallbladder pathology, likely on Saturday - Phenergan seems to be moderately helpful. Would avoid adding other phenothiazine antiemetics due to risk of dystonia. - Resume tube feeding - Encourage any by mouth intake - Continue evaluation by GI x ray consultant regarding further workup plans #. Acute hypoxemic respiratory failure. Present on admission. She was admitted in significant respiratory distress, respiratory rate 42 requiring high flow O2. Chest x-ray revealed right pleural effusion and patchy atelectasis versus infiltrate. White blood cell count 11.8 initially subsequently normal. Initially felt to have possible pneumonia which may well be viral. Antibiotics were administered then stopped. Respiratory PCR positive for influenza A, treated with full course of Tamiflu. ProBNP was 5749 on 05/31. Body weight trend was negative, and no signs of fluid overload. Diuretics were administered then discontinued. After course of treatment she has had no significant oxygen deficit. She remains afebrile without leukocytosis. She does have persistent cough. Likely secondary to atelectasis - Encourage pulmonary toilet - We will repeat chest CT to rule out complicated effusion #. Severe protein caloric malnutrition. The patient is currently doing well with a feeding tube in place since yesterday. Anticipate discharge to [facility] facility with a 2-4 week trial of tube feedings. #. Acute on chronic diastolic CHF exacerbation. Present on admission. Improved. - Holding Lasix at present Resolved, stable and or chronic problems: #. History of diverticulitis s/p hemicolectomy. Present on admission. Presumed stable. Initial CT scan was unremarkable without evidence of anastomosis breakdown or diverticuli or diverticulitis. Her colectomy does not seem related to her persistent nausea and anorexia. No SBO clinically. - Follow bowel function clinically. #. History of C. difficile toxin colitis. #. Hypertension, chronic. Present on admission - Continue home losartan, carvedilol #. Atrial fibrillation, chronic. Present on admission. Heart rate feeds paced at 80 bpm. INR is been maintained in therapeutic range. -PT/INR in AM -Warfarin resumed warfarin after her EGD #. Dyslipidemia, chronic. Present on admission - Holding home statin present #. Dementia, chronic. Present on admission GI Prophylaxis: Not indicated VTE Prophylaxis: Theraputic Anticoag with Warfarin VTE Mechanical Devices: Intermittant Pneumatic CD Resuscitation Status: Limited Interventions Limited Interventions: Cardioversion/Defibrillation, Intubation w Mech Vent, BiPAP, Medications and IV Fluid Time spent 40 minutes spent in patient assessment in care coordination including review of data with consultants in counseling patient and family at bedside. Lito Rodriguez MD Jun 10, 2016 14:18
--- NOTE | 2016-06-10 14:31 | NUR ---
Social Work: Continued Discharge Planning Data & Assessment: Patient discussed in morning rounds. Patient is still tolerating tube feeds. Patient is not medically ready for discharge. patient is estimated to be medically ready for discharge this week. SW met with patient two sons and reviewed notes from rounds. They voiced understanding and notified neonatal social worker that [facility] in there first choice as a SNF for discharge [employer] Organ As[employer]er spoke with [facility] and was notified that currently [facility] does not have any available beds and that it may be two-three weeks before there is a bed available. [employer]er also spoke with Justina at [facility] and she confirmed receipt of the patient's clinical faxed over on 06/09, and stated that they are able to accept the patient but they are waiting for insurance authorization. [employer]er notified patient, patient's sons and patient's spouse of the acceptance status at both facilities. They voiced understanding. Plan: Patient will discharge to SNF once a bed is available and insurance gives authorization. [facility] has accepted the patient and is working on one-time contract with patient's insurance. [facility] has also accepted the patient, but there is no bed available and there may not be a bed available for 2-3 weeks. [employer] will continue to follow. Dianna Granda, MOE, ACSusan
--- NOTE | 2016-06-10 15:16 | DRSVH ---
PROCEDURE: CT CHEST WITHOUT CONTRAST ([id number]) INDICATIONS: persistent cough with nausea TECHNIQUE: Noncontrast 5 mm thick sections acquired from the pulmonary apices to the posterior costophrenic angl es. 7 mm thick coronal and sagittal MIP reformats were then acquired. For radiation dose reduction, the following was used: automated exposure control, adjustment of mA and/or kV according to patient size. COMPARISON: None. FINDINGS: Image quality: Excellent. Lungs and pleura: No acute air space opacities but the lungs do appear mildly edematous. There are s mall bilateral simple appearing pleural effusions and no pneumothorax. Central and peripheral airway s are patent and normal in caliber. Mediastinum: Heart size is normal. No pericardial effusion. No mediastinal adenopathy by size crit eria. Thoracic aorta and central pulmonary arteries are normal in size. Esophagus is normal in srini tammy. No hiatal hernia. Pacemaking device and dual chamber leads noted, previously also seen by plai n film. Nasogastric tube extends in normal position. Bones and chest wall: No suspicious bony lesions. No vertebral body compression fractures. No axil isac or supraclavicular adenopathy by size criteria. Thyroid gland is not well visualized. Abdomen: Visualized upper abdominal solid organs and bowel loops appear normal in the absence of con trast. IMPRESSION: Pacemaking device and leads, and nasogastric tube, appear normal. Mild pulmonary edema pattern, small bilateral free-flowing posterior layering pleural effusions with adjacent mild bibasil ar atelectasis. No pneumonia or mass found. Dictated by: Thai Nice M.D. on 06/10/2016 at 15:15 Approved by: Thai Nice M.D. on 06/10/2016 at 15:15
[2016-06-10 16:27] VITALS: BP 143/73; PULSE 80; RESP 15; O2SAT 93
[2016-06-10] MEDS: Promethazine Inj 12.5 MG in Dextrose 5%-Pha MIX 50 ML IV PRN (17:05)
--- NOTE | 2016-06-10 17:55 | NUR ---
TPN/Nausea/O2 The pt increased tube feeds per protocol to 40 mL/hr - pt is tolerating the feeds well. Nausea still is an issue with IV zofran was given this morning, and a bag of phenegren was hung at 1700 with good reports from the pt. O2 was weaned today, and the pt is maintaining sats in the low 90's on RA.
[2016-06-10 19:42] VITALS: BP 151/78; PULSE 80; RESP 16; O2SAT 96
[2016-06-10 23:32] VITALS: BP 129/66; PULSE 80; RESP 14; O2SAT 92
[2016-06-11] MEDS: Ondansetron 2 mg/mL 2 mL Inj IVPUSH PRN ×2 (01:12→02:27)
[2016-06-11] MEDS: Promethazine Inj 12.5 MG in Dextrose 5%-Pha MIX 50 ML IV PRN (02:31)
[2016-06-11 03:31] LABS: BASOPHILS % (AUTO) 0.3 % (0-3)
[2016-06-11 03:33] LABS: EOSINOPHILS % (AUTO) 2.8 % (0-5); MONOCYTES % (AUTO) 9.4 % (4-12); Mean Corpuscular Hemoglobin 30.1 pg (27.0-35.0); Mean Corpuscular Volume 89.8 fL (81-100); NEUTROPHILS % (AUTO) 77.4 % (40-74); Platelet Count 182 bil/L (150-400)
[2016-06-11 03:44] LABS: INR 1.57 ratio
--- NOTE | 2016-06-11 04:06 | NUR ---
GI / discomfort Tube feeds increased to goal of 50ml/hr. No residual. Nausea continues, patient given multiple doses of Zofran and one dose of Phenergan. No emesis. TF on hold at this time for HIDA scan planned for today. No BM. 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 Frequent repositioning provided. Patient complaining of throat discomfort. Lidocaine administered as ordered. Patient requesting sleeping med, MD notified and Trazadone is administered, patient continues to be restless.
[2016-06-11] MEDS ORDERED: Potassium Chloride 20 mEq/15 mL Oral Soln(K 3 - 3.7 & Creat < 2) TUBE ONE (06:35)
[2016-06-11] MEDS ORDERED: Potassium Chloride 20 mEq/15 mL 15mL Oral Soln PO ONE (07:15)
[2016-06-11 07:30] VITALS: BP 182/97; PULSE 80; RESP 24; O2SAT 92
[2016-06-11] MEDS: Insulin LISPRO 300 Unit/3 mL Inj SUBQ SCH ×4 (07:52→21:26)
--- NOTE | 2016-06-11 08:36 | PCM.PNMED ---
Subjective Date of Service Jun 11, 2016 Subjective 89-year-old woman recently status post partial colectomy for diverticulitis, presented with acute respiratory failure with hypoxia due to influenza and possible postviral pneumonia. The patient complains of persistent nausea, it seems more alert today. She is remembering and communicating details about her illness. No cough during interview today Exam Vital Signs Vital Sign - Last Date Time Temp Pulse Resp B/P Pulse Ox O2 Delivery O2 Flow Rate FiO2 06/11/16 07:30 36.6 80 24 182/97 92 Room Air 06/10/16 16:27 1.00 Intake and Output 06/10/16 06/10/16 06/11/16 Cumulative From/Thru 15:00 23:00 07:00 05/31/16 15:20 - 06/11/16 06:39 Intake Total 120 ml 300 ml 43801 ml Output Total 850 ml 450 ml 94468 ml Balance -730 ml -150 ml -7478 ml Intake Oral 120 ml 100 ml 3007 ml IV Total 200 ml 27730 ml Tube Feeding 600 ml FFP 1047 ml Tube Irrigant 1084 ml Output Urine Total 200 ml 350 ml 23093 ml Stool Total 650 ml 100 ml 5625 ml Emesis 850 ml # Voids 1 # Bowel Movements 3 Exam General: Elderly woman with NG tube HEENT: sclerae anicteric, oral mucosa dry Chest: Poor inspiratory effort, generally clear to auscultation Cardiac: S1S2, no murmur Abdomen: BS present, no significant tenderness, left colostomy with stool in bag Extremities: No edema Neuro: Alert to voice and questions, discussing details of her illness since April with me today, motor and coordination are nonfocal IVs and Medications Medications Reviewed: Medications were reviewed in detail Lab and Diagnostics Result Diagram: 06/11/16 02306/11/16 023 X-Rays, CTs and MRIs PROCEDURE: CT ABDOMEN AND PELVIS WITH CONTRAST ([id number]) COMPARISON: [facility], CR, ABDOMEN 1 VIEW, 05/20/2016, 9:54. [facility], CT, ABDOMEN/PELVIS WITH CONTRAST, 05/17/2016, 15:26. [facility] , CR, ABDOMEN ACUTE SERIES, 05/17/2016, 12:47. [facility], CT, ABDOMEN/ PELVIS WITH CONTRAST, 03/19/2016, 12:30. [facility], CT, ABDOMEN/PELVIS WITH CONTRAST, 03/17/2016, 13:32. [facility], CT, ABDOMEN/PELVIS WITH CONTRAST, 02/09/2015, 10:15. [facility], RG, CT ABDOMEN/PELVIS WITH CONTRAST, 08/13/2004, 22:58. IMPRESSION: #1. Postsurgical changes compatible with partial colectomy and left lower quadrant colostomy formation. 2. No free intraperitoneal fluid or air. 3. No dilated loops of bowel. 4. Atherosclerosis including the coronary vasculature. 5. Bilateral pleural effusions. 6. Bibasilar lung consolidation which could represent compressive atelectasis, however infectious process cannot be excluded please correlate with clinical and laboratory data. 7. Bilateral adnexal cysts. 8. No evidence of abscess. 9. Hepatic steatosis. Dictated by: Coleen Laughlin MD, PhD on 05/31/2016 at 18:12 PROCEDURE: X-RAY KUB ([id number]) IMPRESSION: Nasogastric tube is now present, with tip in the gastric body. Dictated by: eKvyn Das M.D. on 06/04/2016 at 17:37 PROCEDURE: CT ABDOMEN AND PELVIS WITH CONTRAST ([id number]) IMPRESSION: 1. Small bowel obstruction, new since the prior examination. No focal transition point. 2. No change in bilateral adnexal cysts; further assessment with ultrasound is recommended. 3. Decreased bibasilar pleural-parenchymal opacities. Dictated by: Laura Howard M.D. on 06/07/2016 at 13:56 PROCEDURE: NM HIDA SCAN WITH CCK IMPRESSION: Normal examination and gallbladder ejection fraction Dictated by: Denis Moses M.D. on 06/11/2016 at 14:50 . Cardiac Echo Impressions Echocardiogram Report Name: MAXI AGUIAR Study Date: 06/01/2016 Interpretation Summary 1. Normal left ventricular size and wall thickness with overall preserved systolic function. 2. Normal right ventricular size and systolic function. 3. No significant valvular pathology appreciated. 4. Bilateral pleural effusions . Additional Diagnostics PROCEDURE: Esophagogastroduodenoscopy. INDICATION: Chronic nausea and abdominal pain. ANESTHESIA: Please see anesthesia report for details regarding ASA classification, Mallampati score, and medications. INSTRUMENT USED: GIF H 180 J. PROCEDURE DETAILS: The endoscopy cart was brought into the patient's room after informed consent was obtained from the patient's . Next, the patient was monitored with continuous pulse oximeter, telemetry, and blood pressure monitoring, and was placed on oxygen via nasal cannula. A bite block was placed. The standard EGD scope was then inserted through the bite block and advanced under direct visualization to the second portion of the duodenum without difficulty. FINDINGS: 1. Normal appearing duodenal bulb, first and second portion. Bile-stained mucosa was noted throughout the examined portion of the duodenum. 2. Normal-appearing pylorus, antrum, and gastric body. 3. Retroflexed views in the gastric body revealed a normal-appearing cardia and fundus. A single biopsy was obtained to evaluate for H. pylori. 4. The GE junction was regular. 5. At 28 cm there was an aphthous ulcer. The remainder of the esophagus otherwise appeared unremarkable. IMPRESSION: Aphthous ulcer 28 cm, otherwise normal-appearing exam. Normal exam from the esophagus to second portion of the duodenum. Multiple random biopsies were not obtained throughout the antrum and gastric body as there was more than expected bleeding with a single biopsy that was obtained to evaluate for H. pylori. COMPLICATIONS: Immediately none. ESTIMATED BLOOD LOSS: Less than 5 mL. Mc Chisholm MD 06/09/16 [id number] . Assessment & Plan Patient is an 89-year-old female with history of diverticulitis s/p partial colectomy with colostomy, dementia, atrial fibrillation presenting with cough and dyspnea and admitted for pneumonia and acute CHF exacerbation. Acute, and/or high risk problems: #. Persistent nausea, anorexia. Nausea has been present for weeks, even months , prior to her c. difficile, surgery for diverticulitis. Family reports she is taking very little oral nutrition since late April. Prior to that time her eating pattern was highly variable and weight was generally stable. Prior to her colectomy she was physically active with most ADLs. Course of nausea was not changed significantly by surgery for diverticulitis. C. difficile toxin PCR negative during current admission. Surgery for diverticular abscess had no impact on nausea and anorexia. Her ostomy is functioning. Repeat CT scan on suggested partial SBO but she did not have clinical symptoms of SBO. Stopped all antibiotics as there appears to be no active infection right now. Hepatobiliary labs have been unremarkable. Nausea complaint is constant but generally not associated with vomiting. Her weight is reduced by approximately 6-7 kg during the course of this hospitalization. Upper endoscopy performed shows no significant pathology. Medications is been minimized, with no apparent impact on nausea. HIDA scan is negative on 06/11. - Phenergan seems to be moderately helpful. Would avoid adding other phenothiazine antiemetics due to risk of dystonia. - Resume tube feeding after HIDA scan - Encourage any by mouth intake - Continue evaluation by GI solution consultant regarding further workup plans - Anticipate discharge with further GI and nutritional follow-up as outpatient #. Acute hypoxemic respiratory failure. Present on admission. She was admitted in significant respiratory distress, respiratory rate 42 requiring high flow O2. Chest x-ray revealed right pleural effusion and patchy atelectasis versus infiltrate. White blood cell count 11.8 initially subsequently normal. Initially felt to have possible pneumonia which may well be viral. Antibiotics were administered then stopped. Respiratory PCR positive for influenza A, treated with full course of Tamiflu. ProBNP was 5749 on 05/31. Body weight trend was negative, and no signs of fluid overload. Diuretics were administered then discontinued. After course of treatment she has had no significant oxygen deficit. She remains afebrile without leukocytosis. She does have persistent cough. Likely secondary to atelectasis. Chest CT on 06/10 was unremarkable - Encourage pulmonary toilet #. Severe protein caloric malnutrition. The patient is currently doing well with a feeding tube in place since yesterday. Anticipate discharge to halfway facility with a 2-4 week trial of tube feedings. #. Acute on chronic diastolic CHF exacerbation. Present on admission. Improved. - Holding Lasix at present Resolved, stable and or chronic problems: #. History of diverticulitis s/p hemicolectomy. Present on admission. Presumed stable. Initial CT scan was unremarkable without evidence of anastomosis breakdown or diverticuli or diverticulitis. Her colectomy does not seem related to her persistent nausea and anorexia. No SBO clinically. - Follow bowel function clinically. #. History of C. difficile toxin colitis. #. Hypertension, chronic. Present on admission - Continue home losartan, carvedilol #. Atrial fibrillation, chronic. Present on admission. Heart rate feeds paced at 80 bpm. INR is been maintained in therapeutic range. -PT/INR in AM -Warfarin resumed warfarin after her EGD #. Dyslipidemia, chronic. Present on admission - Holding home statin present #. Dementia, chronic. Present on admission Pain Evaluation: Adequate Pain Control GI Prophylaxis: Not indicated VTE Prophylaxis: Theraputic Anticoag with Warfarin VTE Mechanical Devices: Intermittant Pneumatic CD Resuscitation Status: Limited Interventions Limited Interventions: Cardioversion/Defibrillation, Intubation w Mech Vent, BiPAP, Medications and IV Fluid Time spent 35 minutes Lito Rodriguez MD Jun 11, 2016 08:36
[2016-06-11] MEDS: Benzocaine-Menthol Lozenge 2/Pkg PO PRN ×2 (12:49→20:03)
--- NOTE | 2016-06-11 13:28 | NUR ---
NUTRITION FOLLOW-UP: ASSESS: 89 YO F admitted with pneumonia and CHF exacerbation. Pt had poor PO intake on full liquid diet and minimal PO intake prior to admit. Trickle TF started 06/04 and per RN tolerated well. TFs advanced to goal on 06/06, pt had multiple bouts of emesis and TFs placed on hold. Pt continues to have nausea. Per notes, plan to resume TF after HIDA scan to rule out gallbladder pathology. PMHx: Diverticulitis with perforated bowel status post hemicolectomy, CHF, HTN, dyslipidemia, A-fib, dementia. DIET: General. PO Intake refusal. NUTRITION SUPPORT: (ON HOLD) Jevity 1.5 @ 50 ml/hr. LABS: K+ 3.3, Glu 125, AST 57, ALT 55, Alb 3.2 MEDICATIONS: Reviewed. Coumadin. GI: Stool via colostomy. SKIN: No issues noted, melanie 17 ANTHROPOMETRICS: Current Wt: 62.6 kg, BMI: 23.0 kg/m2. Admit weight: 65.91 kg. IBW: 56.8 kg ESTIMATED NEEDS: Calories: 2160-6989 kcal/day (25-30 kcal/kg BW) Protein: 65-78 g/day (1.0-1.2 g/kg BW) Fluids: 1672-5717 ml/day (25-30 cc/kg) NUTRITION DIAGNOSIS: 1) Inadequate oral intake related to inability to consume sufficient energy, as evidenced by minimal PO intake x 4 days.-PERSISTS. INTERVENTION: 1) Restart enteral nutrition when appropriate. 2) If unable to restart enteral nutrition via mouth or tube, consider TPN. MONITOR/EVALUATE: Diet tolerance, TF vs TPN, PO intake, labs, GI/nutrition status. Follow per high nutrition risk guidelines.
--- NOTE | 2016-06-11 14:20 | PCM.PNMED ---
Subjective Date of Service Jun 11, 2016 Subjective Gastroenterology Progress Note Patient reports continuing nausea, although better today. She reports her abdominal pain is minimal if she lies still but worsens with any palpation. She reports worsening shortness of breath, coughing with yellow sputum, and wheezing over the last 2 days. Denies fevers, chills, vomiting. Exam Vital Signs Vital Sign - Last Date Time Temp Pulse Resp B/P Pulse Ox O2 Delivery O2 Flow Rate FiO2 06/11/16 07:30 36.6 80 24 182/97 92 Room Air 06/10/16 16:27 1.00 Intake and Output 06/10/16 06/10/16 06/11/16 Cumulative From/Thru 15:00 23:00 07:00 05/31/16 15:20 - 06/11/16 06:39 Intake Total 120 ml 300 ml 74726 ml Output Total 850 ml 450 ml 38107 ml Balance -730 ml -150 ml -7478 ml Intake Oral 120 ml 100 ml 3007 ml IV Total 200 ml 54630 ml Tube Feeding 600 ml FFP 1047 ml Tube Irrigant 1084 ml Output Urine Total 200 ml 350 ml 28204 ml Stool Total 650 ml 100 ml 5625 ml Emesis 850 ml # Voids 1 # Bowel Movements 3 Exam General: Alert, Cooperative, Mild Distress due to nausea/pain. Chronically ill appearing. Head: Normal. NG tube in place. Eyes: PERRLA, EOMI Mouth: Mouth Normal Chest & Lungs: Chest Wall Normal, Coarse breath sounds with wheezing and rhonchi on expiration. Cardiovascular: Exam Unremarkable, Regular Rate/Rhythm, Normal S1, Normal S2, No Murmurs/Rubs/Gallops Abdomen: Significant tenderness on palpation in RUQ. Moderate LLQ tenderness and mild diffuse tenderness. No guarding or rebound tenderness. Surgery incision mid-abdomen without erythema or discharge. Colostomy in place with green stool, Non-distended, No masses, Normoactive bowel tones, Soft, tympanitic. Musculoskeletal: Unremarkable, Normal Range of Motion Extremities: No cyanosis/clubbing/edma bilat Neurological: Grossly Neurologically Intact, Normal Speech Lab and Diagnostics Result Diagram: 06/11/16 0230 06/11/16 1225 X-Rays, CTs and MRIs PROCEDURE: CT ABDOMEN AND PELVIS WITH CONTRAST ([id number]) COMPARISON: [facility], , ABDOMEN 1 VIEW, 05/20/2016, 9:54. [facility], CT, ABDOMEN/PELVIS WITH CONTRAST, 05/17/2016, 15:26. [facility] , CR, ABDOMEN ACUTE SERIES, 05/17/2016, 12:47. [facility], CT, ABDOMEN/ PELVIS WITH CONTRAST, 03/19/2016, 12:30. [facility], CT, ABDOMEN/PELVIS WITH CONTRAST, 03/17/2016, 13:32. [facility], CT, ABDOMEN/PELVIS WITH CONTRAST, 02/09/2015, 10:15. [facility], RG, CT ABDOMEN/PELVIS WITH CONTRAST, 08/13/2004, 22:58. IMPRESSION: #1. Postsurgical changes compatible with partial colectomy and left lower quadrant colostomy formation. 2. No free intraperitoneal fluid or air. 3. No dilated loops of bowel. 4. Atherosclerosis including the coronary vasculature. 5. Bilateral pleural effusions. 6. Bibasilar lung consolidation which could represent compressive atelectasis, however infectious process cannot be excluded please correlate with clinical and laboratory data. 7. Bilateral adnexal cysts. 8. No evidence of abscess. 9. Hepatic steatosis. Dictated by: Coleen Laughlin MD, PhD on 05/31/2016 at 18:12 PROCEDURE: X-RAY KUB ([id number]) IMPRESSION: Nasogastric tube is now present, with tip in the gastric body. Dictated by: Kevyn Das M.D. on 06/04/2016 at 17:37 PROCEDURE: CT ABDOMEN AND PELVIS WITH CONTRAST ([id number]) IMPRESSION: 1. Small bowel obstruction, new since the prior examination. No focal transition point. 2. No change in bilateral adnexal cysts; further assessment with ultrasound is recommended. 3. Decreased bibasilar pleural-parenchymal opacities. Dictated by: Laura Howard M.D. on 06/07/2016 at 13:56 . Cardiac Echo Impressions Echocardiogram Report Name: MAXI AGUIAR Study Date: 06/01/2016 Interpretation Summary 1. Normal left ventricular size and wall thickness with overall preserved systolic function. 2. Normal right ventricular size and systolic function. 3. No significant valvular pathology appreciated. 4. Bilateral pleural effusions . Additional Diagnostics PROCEDURE: Esophagogastroduodenoscopy. INDICATION: Chronic nausea and abdominal pain. ANESTHESIA: Please see anesthesia report for details regarding ASA classification, Mallampati score, and medications. INSTRUMENT USED: GIF H 180 J. PROCEDURE DETAILS: The endoscopy cart was brought into the patient's room after informed consent was obtained from the patient's . Next, the patient was monitored with continuous pulse oximeter, telemetry, and blood pressure monitoring, and was placed on oxygen via nasal cannula. A bite block was placed. The standard EGD scope was then inserted through the bite block and advanced under direct visualization to the second portion of the duodenum without difficulty. FINDINGS: 1. Normal appearing duodenal bulb, first and second portion. Bile-stained mucosa was noted throughout the examined portion of the duodenum. 2. Normal-appearing pylorus, antrum, and gastric body. 3. Retroflexed views in the gastric body revealed a normal-appearing cardia and fundus. A single biopsy was obtained to evaluate for H. pylori. 4. The GE junction was regular. 5. At 28 cm there was an aphthous ulcer. The remainder of the esophagus otherwise appeared unremarkable. IMPRESSION: Aphthous ulcer 28 cm, otherwise normal-appearing exam. Normal exam from the esophagus to second portion of the duodenum. Multiple random biopsies were not obtained throughout the antrum and gastric body as there was more than expected bleeding with a single biopsy that was obtained to evaluate for H. pylori. COMPLICATIONS: Immediately none. ESTIMATED BLOOD LOSS: Less than 5 mL. Mc Chisholm MD 06/09/16 [id number] . Assessment & Plan Patient is an 89-year-old female with history of diverticulitis s/p recent partial colectomy now with colostomy, dementia, and atrial fibrillation who was admitted for acute hypoxemic respiratory failure and possible pneumonia, which has mostly resolved. Gastroenterology was consulted for persistent nausea of unknown cause. Diffuse abdominal pain - Pt presents with diffuse abdominal pain, worse in bilateral upper quadrants. She appears to have diffuse abdominal pain on exam but occasionally presents with focal RUQ and LLQ abdominal pain. Lipase was mildly elevated at 67, but pancreas was normal on CT x2. CT abd pelvis on 05/31/15 was negative for any intra -abdominal cause of nausea or abdominal pain. Repeat CT abd/pelvis with contrast showed multiple moderately distended loops of mid small bowel within the abdomen pelvis with no discrete transition point between dilated and nondilated small bowel. While this is indicative of a small bowel obstruction, this seems less likely as she does not any change in her chronic nausea or abdominal pain despite the change from CT on 05/31, and she continues to move her bowels. EGD on 06/09 showed an aphthous ulcer but otherwise was negative for any cause of abdominal pain or nausea. - NG tube in place - Continue Pepcid. - HIDA scan completed today. Will await results. Persistent nausea - Nausea has been present for weeks, even months, prior to her c. difficile, surgery for diverticulitis, and has not changed significantly since the surgery. Repeat CT scan on 06/07 suggested partial SBO but she did not have clinical symptoms of SBO. She may have slow transit times, so we recommend evaluating with a small bowel follow through while monitoring [id number] transit times. A transit time over 90 minutes is irregular. Her nausea is chronic and unchanged at this time. This may also be related to her dementia. Given her chronic bedridden status and tympany on exam, she may have poor bowel activity due to lack of mobility. We recommend mobilizing the patient. If the HIDA scan and small bowel follow through are negative, will consider gastric emptying test. - Will await results from HIDA scan. - NG tube in place - Recommend evaluating with a small bowel follow through while monitoring oral- to-cecum transit times - Recommend physical therapy and encouraging ambulation. - Reglan 5 mg IV q6h - Zofran 4-8 mg q4h IV PRN Elevated LFTs, acute. - Patient's AST increased from 36 to 51 and ALT increased from 21 to 34 on . LFTs normalized but have now increased again. Pt is on pravastatin, acetaminophen, and losartan, which can cause elevated LFTs. May also be secondary to gallbladder pathology. If they are related to statins, this level of elevation does not warrant discontinuing statins. - Continue to monitor. Elevated lipase, acute. - Lipase was mildly elevated at 67 but pancreas was normal x2 on abd/pelvis CT. Likely not cause of nausea and abdominal pain, but consider chronic pancreatitis in absence of other findings. - Continue to monitor. History of diverticulitis s/p hemicolectomy. - Presumed stable. Initial CT scan was unremarkable without evidence of anastomosis breakdown or diverticuli or diverticulitis. Her colectomy does not seem related to her persistent nausea and anorexia. - Follow bowel function clinically. History of C. difficile toxin colitis. - C diff PCR of ostomy fluid on 06/05/16 was negative. GI Prophylaxis: Not indicated VTE Prophylaxis: Theraputic Anticoag with Warfarin VTE Mechanical Devices: Intermittant Pneumatic CD Resuscitation Status: Limited Interventions Limited Interventions: Cardioversion/Defibrillation, Intubation w Mech Vent, BiPAP, Medications and IV Fluid Attending Statement I saw and examined the patient. Agree with above. Abdomen is benign except for some tenderness. Patient does have nausea but no vomiting. Output was about 500-1000cc. There was however mild distention of the abdomen with some decrease in bowel sounds. This may exacerbate underlying nausea. Clinical no evidence of obstruction. However concerned of slow transit versus gastroparesis from multifactorial. Encourage ambulation. If HIDA scan is unremarkable, gastric emptying study of solids and small bowel follow-through upper GI using Gastrografin. Marco Zavala Jun 11, 2016 13:43 Ld Chavis MD Jun 11, 2016 14:32
--- NOTE | 2016-06-11 14:52 | DRSVH ---
PROCEDURE: NM HIDA SCAN WITH CCK PHARMACEUTICAL: 5.04 mCi Tc-99m mebrofenin IV; 1.29 mcg CCK IV. INDICATIONS: ABDOMINAL PAIN,NAUSEA TECHNIQUE: Following intravenous administration of Tc-99m mebrofenin, sequential anterior abdominal images were obtained. To evaluate the contractile response of the gallbladder in response to Cholecystokinin (CC K), sincalide (0.02 g/kg) was administered by slow intravenous infusion approximately 60 minutes aft er the administration of the radiopharmaceutical. Sequential imaging was continued for [address] the start of CCK infusion. Gallbladder ejection fraction was calculated. COMPARISON: None. FINDINGS: The patient reported no change in pain (7/10) following CCK injection although did experie nce nausea. Biliary scan: There is normal tracer uptake and excretion by the liver. There is normal visualizati on of the intrahepatic ducts, common bile duct, and gallbladder. There is normal tracer transit into the duodenum. CCK stimulation: There is normal contractile response of the gallbladder to CCK infusion. The calcu lated gallbladder ejection fraction is 94%; normal values are above 35%. It has been shown that any patient abdominal pain after CCK administration is related to the rate of CCK injection, rather than to any underlying gallbladder disease (Clinical Nuclear Medicine 2012; 37: 63-70. Journal of Nuclear Medicine 2014; 55: 1-9). IMPRESSION: Normal examination and gallbladder ejection fraction Dictated by: Denis Moses M.D. on 06/11/2016 at 14:50 Approved by: Denis Moses M.D. on 06/11/2016 at 14:50
--- NOTE | 2016-06-11 15:39 | NUR ---
took over patient care at 3pm
--- NOTE | 2016-06-11 16:05 | NUR ---
spiritual care: (late entry) brief in room visit. pt and spouse shared concerns over diagnosis and prognosis. spouse at bedside
[2016-06-11 16:07] VITALS: BP 148/72; PULSE 70; RESP 19; O2SAT 90
--- NOTE | 2016-06-11 18:07 | NUR ---
O2/NG/POC The pt continues to maintain O2 sats in the low to mid 90's on room air. Ng tube is running at 50mL/hr with intermittent flushes of 115mL. The pt is tolerating the NG feeds well, and had a decrease in nausea today. The plan is a few more tests tomorrow, then DC.
[2016-06-11 19:50] VITALS: BP 143/81; PULSE 80; RESP 20; O2SAT 95
[2016-06-11 23:07] VITALS: BP 152/73; PULSE 80; RESP 18; O2SAT 93
[2016-06-12] MEDS ORDERED: Potassium Chloride 20 mEq/15 mL Oral Soln(K 3 - 3.7 & Creat < 2) TUBE ONE (00:11)
--- NOTE | 2016-06-12 01:37 | NUR ---
Transfer of Care Report given to Senait Child RN on [facility]. Pt transfered via bed to [facility] 3019 and accompanied by 2 HOSPICE ART THERAPIST, re: Tele bed needed on [facility]. All belongings, chart and meds sent with Pt. Pt denies pain prior to transport.
[2016-06-12 01:46] VITALS: BP 134/76; PULSE 80; RESP 18; O2SAT 95
[2016-06-12] MEDS: Ondansetron 2 mg/mL 2 mL Inj IVPUSH PRN (02:05)
[2016-06-12 06:22] VITALS: BP 153/81; PULSE 80; RESP 18; O2SAT 94
[2016-06-12 06:49] LABS: INR 1.59 ratio
[2016-06-12] MEDS: Insulin LISPRO 300 Unit/3 mL Inj SUBQ SCH ×4 (07:56→22:00)
[2016-06-12] MEDS ORDERED: Acetaminophen IV 1,000 MG in IV Premix 1 EACH IV PRN (08:00)
[2016-06-12] MEDS: Promethazine Inj 12.5 MG in Dextrose 5%-Pha MIX 50 ML IV PRN ×2 (08:56→10:09)
[2016-06-12] MEDS: Benzocaine-Menthol Lozenge 2/Pkg PO PRN ×3 (08:56→20:39)
--- NOTE | 2016-06-12 09:19 | PCM.PNMED ---
Subjective Date of Service Jun 12, 2016 Subjective No overnight events. Today patient continues to endorse nausea, unable to swallow. Son at bedside giving her small amounts of cantaloupe, which patient sucks on, but spits out. Patient also complains of throat pain, Denies abdominal pain, fevers or chills. Exam Vital Signs Vital Sign - Last Date Time Temp Pulse Resp B/P Pulse Ox O2 Delivery O2 Flow Rate FiO2 06/12/16 06:22 36.7 80 18 153/81 94 Room Air 06/10/16 16:27 1.00 Intake and Output 06/11/16 06/11/16 06/12/16 Cumulative From/Thru 15:00 23:00 07:00 05/31/16 15:20 - 06/12/16 06:38 Intake Total 15640 ml Output Total 98449 ml Balance -7478 ml Intake Oral 3007 ml IV Total 28636 ml Tube Feeding 600 ml FFP 1047 ml Tube Irrigant 1084 ml Output Urine Total 92293 ml Stool Total 5625 ml Emesis 850 ml # Voids 1 # Bowel Movements 3 Exam GEN: Elderly woman with NG tube in NAD HEENT: sclerae anicteric, moist mucous membranes, thrush on tongue RESP: Poor inspiratory effort, CTAB CARDIO: Regular rate and rhythm, no murmur ABD: BS present, tenderness to palpation at LLQ, Colostomy with stool in bag at lower left with no signs of irritation Extremities: No edema Neuro: Oriented to self. Normal mood and affect. IVs and Medications Medications Reviewed: Medications were reviewed in detail Lab and Diagnostics Result Diagram: 06/11/16 0230 06/11/16 1225 X-Rays, CTs and MRIs PROCEDURE: CT ABDOMEN AND PELVIS WITH CONTRAST ([id number]) COMPARISON: [facility], , ABDOMEN 1 VIEW, 05/20/2016, 9:54. [facility], CT, ABDOMEN/PELVIS WITH CONTRAST, 05/17/2016, 15:26. [facility] , CR, ABDOMEN ACUTE SERIES, 05/17/2016, 12:47. [facility], CT, ABDOMEN/ PELVIS WITH CONTRAST, 03/19/2016, 12:30. [facility], CT, ABDOMEN/PELVIS WITH CONTRAST, 03/17/2016, 13:32. [facility], CT, ABDOMEN/PELVIS WITH CONTRAST, 02/09/2015, 10:15. [facility], , CT ABDOMEN/PELVIS WITH CONTRAST, 08/13/2004, 22:58. IMPRESSION: #1. Postsurgical changes compatible with partial colectomy and left lower quadrant colostomy formation. 2. No free intraperitoneal fluid or air. 3. No dilated loops of bowel. 4. Atherosclerosis including the coronary vasculature. 5. Bilateral pleural effusions. 6. Bibasilar lung consolidation which could represent compressive atelectasis, however infectious process cannot be excluded please correlate with clinical and laboratory data. 7. Bilateral adnexal cysts. 8. No evidence of abscess. 9. Hepatic steatosis. Dictated by: Coleen Laughlin MD, PhD on 05/31/2016 at 18:12 PROCEDURE: X-RAY KUB ([id number]) IMPRESSION: Nasogastric tube is now present, with tip in the gastric body. Dictated by: Kevyn Das M.D. on 06/04/2016 at 17:37 PROCEDURE: CT ABDOMEN AND PELVIS WITH CONTRAST ([id number]) IMPRESSION: 1. Small bowel obstruction, new since the prior examination. No focal transition point. 2. No change in bilateral adnexal cysts; further assessment with ultrasound is recommended. 3. Decreased bibasilar pleural-parenchymal opacities. Dictated by: Laura Howard M.D. on 06/07/2016 at 13:56 PROCEDURE: NM HIDA SCAN WITH CCK IMPRESSION: Normal examination and gallbladder ejection fraction Dictated by: Denis Moses M.D. on 06/11/2016 at 14:50 . Cardiac Echo Impressions Echocardiogram Report Name: MAXI AGUIAR Study Date: 06/01/2016 Interpretation Summary 1. Normal left ventricular size and wall thickness with overall preserved systolic function. 2. Normal right ventricular size and systolic function. 3. No significant valvular pathology appreciated. 4. Bilateral pleural effusions . Additional Diagnostics PROCEDURE: Esophagogastroduodenoscopy. INDICATION: Chronic nausea and abdominal pain. ANESTHESIA: Please see anesthesia report for details regarding ASA classification, Mallampati score, and medications. INSTRUMENT USED: GIF H 180 J. PROCEDURE DETAILS: The endoscopy cart was brought into the patient's room after informed consent was obtained from the patient's . Next, the patient was monitored with continuous pulse oximeter, telemetry, and blood pressure monitoring, and was placed on oxygen via nasal cannula. A bite block was placed. The standard EGD scope was then inserted through the bite block and advanced under direct visualization to the second portion of the duodenum without difficulty. FINDINGS: 1. Normal appearing duodenal bulb, first and second portion. Bile-stained mucosa was noted throughout the examined portion of the duodenum. 2. Normal-appearing pylorus, antrum, and gastric body. 3. Retroflexed views in the gastric body revealed a normal-appearing cardia and fundus. A single biopsy was obtained to evaluate for H. pylori. 4. The GE junction was regular. 5. At 28 cm there was an aphthous ulcer. The remainder of the esophagus otherwise appeared unremarkable. IMPRESSION: Aphthous ulcer 28 cm, otherwise normal-appearing exam. Normal exam from the esophagus to second portion of the duodenum. Multiple random biopsies were not obtained throughout the antrum and gastric body as there was more than expected bleeding with a single biopsy that was obtained to evaluate for H. pylori. COMPLICATIONS: Immediately none. ESTIMATED BLOOD LOSS: Less than 5 mL. Mc Chisholm MD 06/09/16 1558 . Assessment & Plan Patient is an 89-year-old female with history of diverticulitis s/p partial colectomy with colostomy, dementia, atrial fibrillation presenting with cough and dyspnea and admitted for pneumonia and acute CHF exacerbation. Acute, and/or high risk problems: #. Persistent chronic nausea, with anorexia. - Repeat CT scan on 06/07 suggested possible partial SBO, abx stopped due to no clinical symptoms of SBO - Upper endoscopy performed 06/09 shows no significant pathology - HIDA scan is negative on 06/11. - Continue phenergan PRN - NG tube - Encourage PO intake - No acute findings to date, highly suspicious for worsening dementia attributing to symptoms - Continue evaluation by GI senior [employer] consultant regarding further workup plans #. Acute hypoxemic respiratory failure secondary to influenza A. Present on admission. Resolved. - CXR revealed right pleural effusion and patchy atelectasis versus infiltrate. - Influenza treated with Tamiflu - ProBNP was 5749 on 05/31 with no signs of fluid overload #. Severe protein caloric malnutrition. - NG tube #. Acute on chronic diastolic CHF exacerbation. Present on admission. Improved. - Holding Lasix at present Resolved, stable and or chronic problems: #. History of diverticulitis s/p hemicolectomy. Present on admission. Presumed stable. Initial CT scan was unremarkable without evidence of anastomosis breakdown or diverticuli or diverticulitis. Her colectomy does not seem related to her persistent nausea and anorexia. No SBO clinically. - Follow bowel function clinically. #. History of C. difficile toxin colitis. #. Hypertension, chronic. Present on admission - Continue home losartan, carvedilol #. Atrial fibrillation, chronic. Present on admission. Heart rate feeds paced at 80 bpm. -PT/INR in AM -Warfarin resumed after her EGD #. Dyslipidemia, chronic. Present on admission - Holding home statin present #. Dementia, chronic. Present on admission DVT prophy: Anticoagulated on warfarin GI prophy: H2 philip CODE: Limited interventions Dispo: Anticipate discharge once no acute findings per GI, likely to be in 1-2 days. GI Prophylaxis: Not indicated VTE Prophylaxis: Theraputic Anticoag with Warfarin VTE Mechanical Devices: Intermittant Pneumatic CD Resuscitation Status: Limited Interventions Limited Interventions: Cardioversion/Defibrillation, Intubation w Mech Vent, BiPAP, Medications and IV Fluid Time spent 25 minutes Attending Statement I have seen and evaluated patient at bedside in addition to directly supervising care provided by resident physician. I agree with above documentation. Vasyl Ramirez DO Jun 12, 2016 09:18 Jean Cruz DO Jun 13, 2016 07:54
[2016-06-12 09:23] LABS: APPEARANCE,URINE TURBID (CLEAR,HAZY); COLOR,URINE BLOODY (YELLOW); OCCULT BLOOD,URINE LARGE (NEGATIVE); UROBILINOGEN,URINE NORMAL (NORMAL)
[2016-06-12 09:26] VITALS: BP 162/73; PULSE 80; RESP 20; O2SAT 94
--- NOTE | 2016-06-12 10:11 | PCM.PNMED ---
Subjective Date of Service Jun 12, 2016 Subjective Patient continues to report nausea overnight and today. She has no other complaints, and denies vomiting, diarrhea, abdominal pain, fevers, chills. Exam Vital Signs Vital Sign - Last Date Time Temp Pulse Resp B/P Pulse Ox O2 Delivery O2 Flow Rate FiO2 06/12/16 06:22 36.7 80 18 153/81 94 Room Air 06/10/16 16:27 1.00 Intake and Output 06/11/16 06/11/16 06/12/16 Cumulative From/Thru 15:00 23:00 07:00 05/31/16 15:20 - 06/12/16 06:38 Intake Total 48553 ml Output Total 44911 ml Balance -7478 ml Intake Oral 3007 ml IV Total 22058 ml Tube Feeding 600 ml FFP 1047 ml Tube Irrigant 1084 ml Output Urine Total 87467 ml Stool Total 5625 ml Emesis 850 ml # Voids 1 # Bowel Movements 3 Exam General: Alert, Cooperative, Mild Distress due to nausea/pain. Chronically ill appearing. Head: Normal. NG tube in place. Eyes: PERRLA, EOMI Mouth: Mouth Normal Chest & Lungs: Chest Wall Normal, Coarse breath sounds with wheezing and rhonchi on expiration. Cardiovascular: Exam Unremarkable, Regular Rate/Rhythm, Normal S1, Normal S2, No Murmurs/Rubs/Gallops Abdomen: Diffuse abdominal tenderness/discomfort to palpation. No guarding or rebound tenderness. Surgery incision mid-abdomen without erythema or discharge. Colostomy in place with green stool, Non-distended, No masses, Normoactive bowel tones, Soft, tympanitic. Musculoskeletal: Unremarkable, Normal Range of Motion Extremities: No cyanosis/clubbing/edma bilat Neurological: Grossly Neurologically Intact, Normal Speech Lab and Diagnostics Result Diagram: 06/11/16 0230 06/11/16 1225 X-Rays, CTs and MRIs PROCEDURE: CT ABDOMEN AND PELVIS WITH CONTRAST ([id number]) COMPARISON: [facility], CR, ABDOMEN 1 VIEW, 05/20/2016, 9:54. [facility], CT, ABDOMEN/PELVIS WITH CONTRAST, 05/17/2016, 15:26. [facility] , CR, ABDOMEN ACUTE SERIES, 05/17/2016, 12:47. [facility], CT, ABDOMEN/ PELVIS WITH CONTRAST, 03/19/2016, 12:30. [facility], CT, ABDOMEN/PELVIS WITH CONTRAST, 03/17/2016, 13:32. [facility], CT, ABDOMEN/PELVIS WITH CONTRAST, 02/09/2015, 10:15. [facility], RG, CT ABDOMEN/PELVIS WITH CONTRAST, 08/13/2004, 22:58. IMPRESSION: #1. Postsurgical changes compatible with partial colectomy and left lower quadrant colostomy formation. 2. No free intraperitoneal fluid or air. 3. No dilated loops of bowel. 4. Atherosclerosis including the coronary vasculature. 5. Bilateral pleural effusions. 6. Bibasilar lung consolidation which could represent compressive atelectasis, however infectious process cannot be excluded please correlate with clinical and laboratory data. 7. Bilateral adnexal cysts. 8. No evidence of abscess. 9. Hepatic steatosis. Dictated by: Coleen Laughlin MD, PhD on 05/31/2016 at 18:12 PROCEDURE: X-RAY KUB ([id number]) IMPRESSION: Nasogastric tube is now present, with tip in the gastric body. Dictated by: Kevyn Das M.D. on 06/04/2016 at 17:37 PROCEDURE: CT ABDOMEN AND PELVIS WITH CONTRAST ([id number]) IMPRESSION: 1. Small bowel obstruction, new since the prior examination. No focal transition point. 2. No change in bilateral adnexal cysts; further assessment with ultrasound is recommended. 3. Decreased bibasilar pleural-parenchymal opacities. Dictated by: Laura Howard M.D. on 06/07/2016 at 13:56 PROCEDURE: NM HIDA SCAN WITH CCK IMPRESSION: Normal examination and gallbladder ejection fraction Dictated by: Denis Moses M.D. on 06/11/2016 at 14:50 . Cardiac Echo Impressions Echocardiogram Report Name: MAXI AGUIAR Study Date: 06/01/2016 Interpretation Summary 1. Normal left ventricular size and wall thickness with overall preserved systolic function. 2. Normal right ventricular size and systolic function. 3. No significant valvular pathology appreciated. 4. Bilateral pleural effusions . Additional Diagnostics PROCEDURE: Esophagogastroduodenoscopy. INDICATION: Chronic nausea and abdominal pain. ANESTHESIA: Please see anesthesia report for details regarding ASA classification, Mallampati score, and medications. INSTRUMENT USED: GIF H 180 J. PROCEDURE DETAILS: The endoscopy cart was brought into the patient's room after informed consent was obtained from the patient's . Next, the patient was monitored with continuous pulse oximeter, telemetry, and blood pressure monitoring, and was placed on oxygen via nasal cannula. A bite block was placed. The standard EGD scope was then inserted through the bite block and advanced under direct visualization to the second portion of the duodenum without difficulty. FINDINGS: 1. Normal appearing duodenal bulb, first and second portion. Bile-stained mucosa was noted throughout the examined portion of the duodenum. 2. Normal-appearing pylorus, antrum, and gastric body. 3. Retroflexed views in the gastric body revealed a normal-appearing cardia and fundus. A single biopsy was obtained to evaluate for H. pylori. 4. The GE junction was regular. 5. At 28 cm there was an aphthous ulcer. The remainder of the esophagus otherwise appeared unremarkable. IMPRESSION: Aphthous ulcer 28 cm, otherwise normal-appearing exam. Normal exam from the esophagus to second portion of the duodenum. Multiple random biopsies were not obtained throughout the antrum and gastric body as there was more than expected bleeding with a single biopsy that was obtained to evaluate for H. pylori. COMPLICATIONS: Immediately none. ESTIMATED BLOOD LOSS: Less than 5 mL. Mc Chisholm MD 06/09/16 8214 . Assessment & Plan Patient is an 89-year-old female with history of diverticulitis s/p recent partial colectomy now with colostomy, dementia, and atrial fibrillation who was admitted for acute hypoxemic respiratory failure and possible pneumonia, which has mostly resolved. Gastroenterology was consulted for persistent nausea of unknown cause. Persistent nausea - Nausea has been present for weeks, even months, prior to her c. difficile, surgery for diverticulitis, and has not changed significantly since the surgery. Repeat CT scan on 06/07 suggested partial SBO but she did not have clinical symptoms of SBO. Will evaluate with a small bowel follow through to check transit times from the mouth to the cecum. If this is negative, will order gastric emptying study. However, if these tests are negative, consider neurological or psychologic causes for her abdominal discomfort and nausea. Her nausea is chronic and unchanged at this time. Family reports she occasionally has days where her appetite and eating are excellent, only to relapse the next 1 -2 days. This is more likely to be indicative of dementia-related or psychological eating disorders. If the remaining studies are negative, consider referral to a geriatric project management it specialist. - NG tube in place - Recommend evaluating with a small bowel follow through while monitoring oral- to-cecum transit times - If negative, proceed with gastric emptying study - Reglan 5 mg IV q6h - Zofran 4-8 mg q4h IV PRN Diffuse abdominal pain - Pt presents with diffuse abdominal pain, worse in bilateral upper quadrants. She appears to have diffuse abdominal pain on exam but occasionally presents with focal RUQ and LLQ abdominal pain. CT abd pelvis on 05/31/15 was negative for any intra-abdominal cause of nausea or abdominal pain. Repeat CT abd/pelvis with contrast showed multiple moderately distended loops of mid small bowel within the abdomen pelvis with no discrete transition point between dilated and nondilated small bowel. While this is indicative of a small bowel obstruction, this seems less likely as she does not any change in her chronic nausea or abdominal pain despite the change from CT on 05/31, and she continues to move her bowels. EGD on 06/09 showed an aphthous ulcer but otherwise was negative for any cause of abdominal pain or nausea. HIDA scan was negative. Given her chronic bedridden status and tympany on exam, her abdominal discomfort is likely secondary poor bowel activity due to lack of mobility. We recommend mobilizing the patient. - NG tube in place - Continue Pepcid. - Recommend physical therapy and encouraging ambulation. Elevated LFTs, acute. - Patient's AST increased from 36 to 51 and ALT increased from 21 to 34 on . LFTs normalized but have now increased again. Pt is on pravastatin, acetaminophen, and losartan, which can cause elevated LFTs. May also be secondary to gallbladder pathology. If they are related to statins, this level of elevation does not warrant discontinuing statins. - Continue to monitor. Elevated lipase, acute. - Lipase was mildly elevated at 67 but pancreas was normal x2 on abd/pelvis CT. Likely not cause of nausea and abdominal pain, but consider chronic pancreatitis in absence of other findings. - Continue to monitor. History of diverticulitis s/p hemicolectomy. - Presumed stable. Initial CT scan was unremarkable without evidence of anastomosis breakdown or diverticuli or diverticulitis. Her colectomy does not seem related to her persistent nausea and anorexia. - Follow bowel function clinically. History of C. difficile toxin colitis. - C diff PCR of ostomy fluid on 06/05/16 was negative. GI Prophylaxis: Not indicated VTE Prophylaxis: Theraputic Anticoag with Warfarin VTE Mechanical Devices: Intermittant Pneumatic CD Resuscitation Status: Limited Interventions Limited Interventions: Cardioversion/Defibrillation, Intubation w Mech Vent, BiPAP, Medications and IV Fluid Marco Zavala Jun 12, 2016 09:17
[2016-06-12] MEDS ORDERED: Lidocaine 4% 4 mL Laryng-O-Jet Top Soln MUC_MEMBRM ONE (10:20)
[2016-06-12] MEDS: Nystatin 100,000 Unit/mL 5 mL Suspension PO SCH ×3 (12:17→20:38)
[2016-06-12 13:20] VITALS: BP 139/67; PULSE 80; RESP 19; O2SAT 95
--- NOTE | 2016-06-12 16:26 | NUR ---
Social Work-continued d/c planning: JAY received call from Marley at [facility] who has some questions, SW answered questions, which SW answered. SW provided answers. Marley states they can accept when medically stable. MAN Mcclendon
--- NOTE | 2016-06-12 16:58 | NUR ---
spiritual care: follow up--family family offered updates on their concern/determination for pt to eat. Pt is showing little interest in food or drink.
--- NOTE | 2016-06-12 19:00 | NUR ---
Shift note Pleasant pt, forgetful at times. Family in most day, very helpful with re-orientating pt and feedings. New IV restarted on RFA d/t one on LFA leaking. Pt tolerated IV meds well. Slept on and off through shift. Worked with PT. Hoping to get NG tube removed tomorrow after Gastrografin test. IV ativan ordered 1x for potential anxiety related fear with eating. Pt stated to feel "sick to my stomach" at the mention of food. Family things it's d/t recent abx and being on tube feed. Hoping to introduce foods slowly, successfully.
[2016-06-12 21:09] VITALS: BP 129/73; PULSE 80; RESP 18; O2SAT 94
[2016-06-13] MEDS: Ondansetron 2 mg/mL 2 mL Inj IVPUSH PRN ×2 (05:14→15:40)
[2016-06-13 05:47] VITALS: BP 169/78; PULSE 79; RESP 16; O2SAT 92
[2016-06-13] MEDS: Benzocaine-Menthol Lozenge 2/Pkg PO PRN (06:06)
[2016-06-13 06:55] LABS: Mean Corpuscular Hemoglobin 29.8 pg (27.0-35.0); Mean Corpuscular Volume 92.9 fL (81-100)
[2016-06-13 07:40] LABS: INR 1.51 ratio
[2016-06-13] MEDS: Insulin LISPRO 300 Unit/3 mL Inj SUBQ SCH ×4 (08:00→20:29)
--- NOTE | 2016-06-13 08:24 | NUR ---
OFF unit/Gastrografin Pt taken by transporter for Xray via stretcher at 0822. BG checked prior to leaving= 106. Pt c/o sore throat, 2 ice chips given. Pt kept NPO from midnight for procedure. Anxious about getting NG removed, hopefully after xray. IV converted to SL. Addendum: 06/13/16 at 1027 by ROCKY MOSELEY RN Pt returned to unit at 0950. Pt denies having pain other than sore throat. Ice chips provided, 1 at a time to dissolve in mouth, not to be swallowed. Pts son is in room, working with pt.
--- NOTE | 2016-06-13 11:34 | DRSVH ---
PROCEDURE: X-RAY UPPER GI WITH GASTROGRAPHIN AND SMALL BOWEL FOLLOW-THROUGH ([id number]) INDICATIONS: Nausea/vomiting, abdominal pain COMPARISON: None. FINDINGS: KUB: Preprocedural public safety police film shows a normal bowel gas pattern. No suspicious abdominal calcificati ons. Visualized solid organ contours appear normal in size. No suspicious bony abnormalities. Naso gastric tube present in expected position. Cardiac pacer pulse generator and leads incompletely visu alized. Esophagus: Not evaluated as the Gastrografin was administered via the nasogastric tube. Stomach: The gastric lumen is normally distensible, and has normal rugal fold thickness. No mucosal masses or ulcers. The pylorus and duodenal bulb have a normal morphology. The attending physician was personally present in the room during the examination. Small bowel: Duodenal folds appear normal in thickness. There is normal transit time of barium thro ugh the small intestine. Small bowel loops appear normal in caliber throughout. Jejunal and ileal f olds are smooth and normal in thickness. No strictures, intraluminal masses, or extrinsic mass effec ts. The terminal ileum is not well seen. IMPRESSION: Limited Gastrografin examination demonstrating grossly normal upper GI series and small b owel follow-through. Dictated by: Yuval WILSON Interpreted: Lizbeth Harris MD on 06/13/2016 at 11:33 Transcribed by: MOISÉS on 06/13/2016 at 11:33 Approved by: Lizbeth Harris M.D. on 06/13/2016 at 11:40
--- NOTE | 2016-06-13 12:43 | NUR ---
NG d/c NG d/c per orders. pt tolerated it well, gave the RN the biggest grin before and afterwards! Pts only request is a coke, at this time.
[2016-06-13 12:46] VITALS: BP 154/74; PULSE 80; RESP 18; O2SAT 93
--- NOTE | 2016-06-13 12:46 | PCM.PNMED ---
Subjective Date of Service Jun 13, 2016 Subjective No overnight events. Patient had just returned from gastrograffin study. Continues to endorse nausea. Denies vomiting. Denies cough, fevers or chills. Exam Vital Signs Vital Sign - Last Date Time Temp Pulse Resp B/P Pulse Ox O2 Delivery O2 Flow Rate FiO2 06/13/16 05:47 36.6 79 16 169/78 92 Room Air 06/10/16 16:27 1.00 Intake and Output 06/12/16 06/12/16 06/13/16 Cumulative From/Thru 15:00 23:00 07:00 05/31/16 15:20 - 06/13/16 04:00 Intake Total 100 ml 436 ml 350 ml 02346 ml Output Total 250 ml 150 ml 03897 ml Balance -150 ml 286 ml 350 ml -6992 ml Intake Oral 100 ml 436 ml 3543 ml IV Total 350 ml 35197 ml Tube Feeding 600 ml FFP 1047 ml Tube Irrigant 1084 ml Output Urine Total 94375 ml Stool Total 250 ml 150 ml 6025 ml Emesis 850 ml # Voids 2 2 5 # Bowel Movements 3 Exam GEN: Elderly woman with NG tube in NAD HEENT: sclerae anicteric, dry mucous membranes, thrush on tongue improved RESP: Poor inspiratory effort, CTAB CARDIO: Regular rate and rhythm, no murmur ABD: BS present, tenderness to palpation at LLQ, Colostomy with stool in bag at lower left with no signs of irritation Extremities: No edema Neuro: Oriented to self. Normal mood and affect. IVs and Medications Medications Reviewed: Medications were reviewed in detail Lab and Diagnostics Result Diagram: 06/13/16 0606/13/16 0605 X-Rays, CTs and MRIs PROCEDURE: CT ABDOMEN AND PELVIS WITH CONTRAST ([id number]) COMPARISON: [facility], CR, ABDOMEN 1 VIEW, 05/20/2016, 9:54. [facility], CT, ABDOMEN/PELVIS WITH CONTRAST, 05/17/2016, 15:26. [facility] , CR, ABDOMEN ACUTE SERIES, 05/17/2016, 12:47. [facility], CT, ABDOMEN/ PELVIS WITH CONTRAST, 03/19/2016, 12:30. [facility], CT, ABDOMEN/PELVIS WITH CONTRAST, 03/17/2016, 13:32. [facility], CT, ABDOMEN/PELVIS WITH CONTRAST, 02/09/2015, 10:15. [facility], RG, CT ABDOMEN/PELVIS WITH CONTRAST, 08/13/2004, 22:58. IMPRESSION: #1. Postsurgical changes compatible with partial colectomy and left lower quadrant colostomy formation. 2. No free intraperitoneal fluid or air. 3. No dilated loops of bowel. 4. Atherosclerosis including the coronary vasculature. 5. Bilateral pleural effusions. 6. Bibasilar lung consolidation which could represent compressive atelectasis, however infectious process cannot be excluded please correlate with clinical and laboratory data. 7. Bilateral adnexal cysts. 8. No evidence of abscess. 9. Hepatic steatosis. Dictated by: Coleen Laughlin MD, PhD on 05/31/2016 at 18:12 PROCEDURE: X-RAY KUB ([id number]) IMPRESSION: Nasogastric tube is now present, with tip in the gastric body. Dictated by: Kevyn Das M.D. on 06/04/2016 at 17:37 PROCEDURE: CT ABDOMEN AND PELVIS WITH CONTRAST ([id number]) IMPRESSION: 1. Small bowel obstruction, new since the prior examination. No focal transition point. 2. No change in bilateral adnexal cysts; further assessment with ultrasound is recommended. 3. Decreased bibasilar pleural-parenchymal opacities. Dictated by: Laura Howard M.D. on 06/07/2016 at 13:56 PROCEDURE: NM HIDA SCAN WITH CCK IMPRESSION: Normal examination and gallbladder ejection fraction Dictated by: Denis Moses M.D. on 06/11/2016 at 14:50 . Cardiac Echo Impressions Echocardiogram Report Name: MAXI AGUIAR Study Date: 06/01/2016 Interpretation Summary 1. Normal left ventricular size and wall thickness with overall preserved systolic function. 2. Normal right ventricular size and systolic function. 3. No significant valvular pathology appreciated. 4. Bilateral pleural effusions . Additional Diagnostics PROCEDURE: Esophagogastroduodenoscopy. INDICATION: Chronic nausea and abdominal pain. IMPRESSION: Aphthous ulcer 28 cm, otherwise normal-appearing exam. Normal exam from the esophagus to second portion of the duodenum. Multiple random biopsies were not obtained throughout the antrum and gastric body as there was more than expected bleeding with a single biopsy that was obtained to evaluate for H. pylori. Mc Chisholm MD 06/09/16 2447 Date of Service: 06/11/16 1158 PROCEDURE: NM HIDA SCAN WITH CCK IMPRESSION: Normal examination and gallbladder ejection fraction Dictated by: Denis Moses M.D. on 06/11/2016 at 14:50 . Date of Service: 06/13/16 0900 PROCEDURE: X-RAY UPPER GI WITH GASTROGRAPHIN AND SMALL BOWEL FOLLOW-THROUGH ( [id number]) INDICATIONS: Nausea/vomiting, abdominal pain IMPRESSION: Limited Gastrografin examination demonstrating grossly normal upper GI series and small bowel follow-through. Dictated by: Yuval Byrne RRLayla Interpreted: Lizbeth Harris MD on 06/13/2016 at 11: 33 Assessment & Plan Patient is an 89-year-old female with history of diverticulitis s/p partial colectomy with colostomy, dementia, atrial fibrillation presenting with cough and dyspnea and admitted for pneumonia and acute CHF exacerbation. Acute, and/or high risk problems: #. Persistent chronic nausea, with anorexia. - Repeat CT scan on 06/07 suggested possible partial SBO, abx stopped due to no clinical symptoms of SBO - Upper endoscopy performed 06/09 shows no significant pathology - HIDA scan is negative on 06/11. - Continue Phenergan PRN - No acute findings to date, highly suspicious for worsening dementia attributing to symptoms - Upper GI series and small bowel follow-through, normal - Continue evaluation by GI clinical practice consultant regarding further workup plans Gastric emptying study - Appreciate palliative consult with time and expertise - NG tube DC'd, encourage PO intake #. Acute hypoxemic respiratory failure secondary to influenza A. Present on admission. Resolved. - CXR revealed right pleural effusion and patchy atelectasis versus infiltrate. - Influenza treated with Tamiflu - ProBNP was 5749 on 05/31 with no signs of fluid overload #. Severe protein caloric malnutrition. - NG tube DC's, encourage PO intake #. Acute on chronic diastolic CHF exacerbation. Present on admission. Improved. - Holding Lasix at present Resolved, stable and or chronic problems: #. History of diverticulitis s/p hemicolectomy. Present on admission. Presumed stable. Initial CT scan was unremarkable without evidence of anastomosis breakdown or diverticuli or diverticulitis. Her colectomy does not seem related to her persistent nausea and anorexia. No SBO clinically. - Follow bowel function clinically. #. History of C. difficile toxin colitis. #. Hypertension, chronic. Present on admission - Continue home losartan, carvedilol #. Atrial fibrillation, chronic. Present on admission. Heart rate feeds paced at 80 bpm. -PT/INR in AM -Warfarin resumed after her EGD #. Dyslipidemia, chronic. Present on admission - Holding home statin present #. Dementia, chronic. Present on admission DVT prophy: Anticoagulated on warfarin GI prophy: H2 philip CODE: Limited interventions Dispo: Anticipate discharge tomorrow to [facility] as planned. GI Prophylaxis: Not indicated VTE Prophylaxis: Theraputic Anticoag with Warfarin VTE Mechanical Devices: Intermittant Pneumatic CD Resuscitation Status: Limited Interventions Limited Interventions: Cardioversion/Defibrillation, Intubation w Mech Vent, BiPAP, Medications and IV Fluid Time spent 35 minutes Attending Statement I have seen and directly evaluated patient at bedside in addition to directly supervising care provided by resident physician. I agree with above documentation. Vasyl Ramirez DO Jun 13, 2016 10:50 Jean Cruz DO Jun 13, 2016 16:19
[2016-06-13] MEDS: Nystatin 100,000 Unit/mL 5 mL Suspension PO SCH ×4 (12:58→20:21)
--- NOTE | 2016-06-13 13:38 | PCM.PNMED ---
Subjective Date of Service Jun 13, 2016 Subjective Patient continues to report nausea overnight and today. She has no other complaints, and denies vomiting, diarrhea, abdominal pain, fevers, chills. She reports sore throat from the NG tube. Exam Vital Signs Vital Sign - Last Date Time Temp Pulse Resp B/P Pulse Ox O2 Delivery O2 Flow Rate FiO2 06/13/16 12:46 36.4 80 18 154/74 93 Room Air 06/10/16 16:27 1.00 Intake and Output 06/12/16 06/12/16 06/13/16 Cumulative From/Thru 15:00 23:00 07:00 05/31/16 15:20 - 06/13/16 04:00 Intake Total 100 ml 436 ml 350 ml 16358 ml Output Total 250 ml 150 ml 99899 ml Balance -150 ml 286 ml 350 ml -6992 ml Intake Oral 100 ml 436 ml 3543 ml IV Total 350 ml 81550 ml Tube Feeding 600 ml FFP 1047 ml Tube Irrigant 1084 ml Output Urine Total 79066 ml Stool Total 250 ml 150 ml 6025 ml Emesis 850 ml # Voids 2 2 5 # Bowel Movements 3 Exam General: Alert, Cooperative, Mild Distress due to nausea/pain. Chronically ill appearing. Head: Normal. NG tube in place. Eyes: PERRLA, EOMI Mouth: Mouth Normal Chest & Lungs: Chest Wall Normal, Clear to auscultation bilaterally Cardiovascular: Exam Unremarkable, Regular Rate/Rhythm, Normal S1, Normal S2, No Murmurs/Rubs/Gallops Abdomen: Diffuse abdominal tenderness/discomfort to palpation. No guarding or rebound tenderness. Surgery incision mid-abdomen without erythema or discharge. Colostomy in place with green stool, Non-distended, No masses, Normoactive bowel tones, Soft, tympanitic. Musculoskeletal: Unremarkable, Normal Range of Motion Extremities: No cyanosis/clubbing/edma bilat Neurological: Grossly Neurologically Intact, Normal Speech Lab and Diagnostics Result Diagram: 06/13/1660406/13/16604 X-Rays, CTs and MRIs PROCEDURE: CT ABDOMEN AND PELVIS WITH CONTRAST ([id number]) COMPARISON: [facility], CR, ABDOMEN 1 VIEW, 05/20/2016, 9:54. [facility], CT, ABDOMEN/PELVIS WITH CONTRAST, 05/17/2016, 15:26. [facility] , CR, ABDOMEN ACUTE SERIES, 05/17/2016, 12:47. [facility], CT, ABDOMEN/ PELVIS WITH CONTRAST, 03/19/2016, 12:30. [facility], CT, ABDOMEN/PELVIS WITH CONTRAST, 03/17/2016, 13:32. [facility], CT, ABDOMEN/PELVIS WITH CONTRAST, 02/09/2015, 10:15. [facility], RG, CT ABDOMEN/PELVIS WITH CONTRAST, 08/13/2004, 22:58. IMPRESSION: #1. Postsurgical changes compatible with partial colectomy and left lower quadrant colostomy formation. 2. No free intraperitoneal fluid or air. 3. No dilated loops of bowel. 4. Atherosclerosis including the coronary vasculature. 5. Bilateral pleural effusions. 6. Bibasilar lung consolidation which could represent compressive atelectasis, however infectious process cannot be excluded please correlate with clinical and laboratory data. 7. Bilateral adnexal cysts. 8. No evidence of abscess. 9. Hepatic steatosis. Dictated by: Coleen Laughlin MD, PhD on 05/31/2016 at 18:12 PROCEDURE: X-RAY KUB ([id number]) IMPRESSION: Nasogastric tube is now present, with tip in the gastric body. Dictated by: Kevyn Das M.D. on 06/04/2016 at 17:37 PROCEDURE: CT ABDOMEN AND PELVIS WITH CONTRAST ([id number]) IMPRESSION: 1. Small bowel obstruction, new since the prior examination. No focal transition point. 2. No change in bilateral adnexal cysts; further assessment with ultrasound is recommended. 3. Decreased bibasilar pleural-parenchymal opacities. Dictated by: Laura Howard M.D. on 06/07/2016 at 13:56 PROCEDURE: NM HIDA SCAN WITH CCK IMPRESSION: Normal examination and gallbladder ejection fraction Dictated by: Denis Moses M.D. on 06/11/2016 at 14:50 . Cardiac Echo Impressions Echocardiogram Report Name: MAXI AGUIAR Study Date: 06/01/2016 Interpretation Summary 1. Normal left ventricular size and wall thickness with overall preserved systolic function. 2. Normal right ventricular size and systolic function. 3. No significant valvular pathology appreciated. 4. Bilateral pleural effusions . Additional Diagnostics PROCEDURE: Esophagogastroduodenoscopy. INDICATION: Chronic nausea and abdominal pain. ANESTHESIA: Please see anesthesia report for details regarding ASA classification, Mallampati score, and medications. INSTRUMENT USED: GIF H 180 J. PROCEDURE DETAILS: The endoscopy cart was brought into the patient's room after informed consent was obtained from the patient's . Next, the patient was monitored with continuous pulse oximeter, telemetry, and blood pressure monitoring, and was placed on oxygen via nasal cannula. A bite block was placed. The standard EGD scope was then inserted through the bite block and advanced under direct visualization to the second portion of the duodenum without difficulty. FINDINGS: 1. Normal appearing duodenal bulb, first and second portion. Bile-stained mucosa was noted throughout the examined portion of the duodenum. 2. Normal-appearing pylorus, antrum, and gastric body. 3. Retroflexed views in the gastric body revealed a normal-appearing cardia and fundus. A single biopsy was obtained to evaluate for H. pylori. 4. The GE junction was regular. 5. At 28 cm there was an aphthous ulcer. The remainder of the esophagus otherwise appeared unremarkable. IMPRESSION: Aphthous ulcer 28 cm, otherwise normal-appearing exam. Normal exam from the esophagus to second portion of the duodenum. Multiple random biopsies were not obtained throughout the antrum and gastric body as there was more than expected bleeding with a single biopsy that was obtained to evaluate for H. pylori. COMPLICATIONS: Immediately none. ESTIMATED BLOOD LOSS: Less than 5 mL. Mc Chisholm MD 06/09/16 9052 . Assessment & Plan Patient is an 89-year-old female with history of diverticulitis s/p recent partial colectomy now with colostomy, dementia, and atrial fibrillation who was admitted for acute hypoxemic respiratory failure and possible pneumonia, which has mostly resolved. Gastroenterology was consulted for persistent nausea of unknown cause. Persistent nausea - Nausea has been present for weeks, even months, prior to her c. difficile, surgery for diverticulitis, and has not changed significantly since the surgery. Repeat CT scan on 06/07 suggested partial SBO but she did not have clinical symptoms of SBO. Will evaluate with a small bowel follow through to check transit times from the mouth to the cecum. If this is negative, will order gastric emptying study. However, if these tests are negative, consider neurological or psychologic causes for her abdominal discomfort and nausea. Her nausea is chronic and unchanged at this time. Family reports she occasionally has days where her appetite and eating are excellent, only to relapse the next 1 -2 days. This is more likely to be indicative of dementia-related or psychological eating disorders. Gastrografin small bowel follow through was negative. - Recommend discontinuing NG tube - Will order gastric emptying study - If the remaining studies are negative, consider referral to a geriatric neuropsychiatrist. - Zofran 4-8 mg q4h IV PRN Diffuse abdominal pain - Pt presents with diffuse abdominal pain, worse in bilateral upper quadrants. She appears to have diffuse abdominal pain on exam but occasionally presents with focal RUQ and LLQ abdominal pain. CT abd pelvis on 05/31/15 was negative for any intra-abdominal cause of nausea or abdominal pain. Repeat CT abd/pelvis with contrast showed multiple moderately distended loops of mid small bowel within the abdomen pelvis with no discrete transition point between dilated and nondilated small bowel. While this is indicative of a small bowel obstruction, this seems less likely as she does not any change in her chronic nausea or abdominal pain despite the change from CT on 05/31, and she continues to move her bowels. EGD on 06/09 showed an aphthous ulcer but otherwise was negative for any cause of abdominal pain or nausea. HIDA scan was negative. Given her chronic bedridden status and tympany on exam, her abdominal discomfort is likely secondary poor bowel activity due to lack of mobility. We recommend mobilizing the patient. - Continue Pepcid. - Recommend physical therapy and encouraging ambulation. Elevated LFTs, acute. - Patient's AST increased from 36 to 51 and ALT increased from 21 to 34 on . LFTs normalized but have now increased again. Pt is on pravastatin, acetaminophen, and losartan, which can cause elevated LFTs. May also be secondary to gallbladder pathology. If they are related to statins, this level of elevation does not warrant discontinuing statins. - Continue to monitor. - Recommend outpatient follow up on LFTs Elevated lipase, acute. - Lipase was mildly elevated at 67 but pancreas was normal x2 on abd/pelvis CT. Likely not cause of nausea and abdominal pain, but consider chronic pancreatitis in absence of other findings. - Continue to monitor. History of diverticulitis s/p hemicolectomy. - Presumed stable. Initial CT scan was unremarkable without evidence of anastomosis breakdown or diverticuli or diverticulitis. Her colectomy does not seem related to her persistent nausea and anorexia. - Follow bowel function clinically. History of C. difficile toxin colitis. - C diff PCR of ostomy fluid on 06/05/16 was negative. Seen and examined the patient. Agree with above. GI Prophylaxis: Not indicated VTE Prophylaxis: Theraputic Anticoag with Warfarin VTE Mechanical Devices: Intermittant Pneumatic CD Resuscitation Status: Limited Interventions Limited Interventions: Cardioversion/Defibrillation, Intubation w Mech Vent, BiPAP, Medications and IV Fluid Attending Statement I seen and examined the patient. Agree with above. Marco Zavala Jun 13, 2016 13:38 Ld Chavis MD Jun 18, 2016 08:45
--- NOTE | 2016-06-13 14:35 | NUR ---
Social Work-readiness for discharge: Data:EMR Reviewed. Pt is on day 13 of hospitalization for pneumonia per h&P. Pt is not medically stable, but may be ready to discharge tomorrow. PT continues to recommend SNF. JAY followed up with pt and son Chadwick at bedside to further discuss discharge planning, SW role explained. Fredi Genao states that they are not sure if they want pt to go to [facility] at discharge, but would prefer pt to be in [place]. SW explained that [facility] was being explored because of pt's need for NG tube. Discussion today is pt may not need NG tube at discharge. Son would like SW to explore [place] SNF's again. JAY explained about insurance authorization also. JAY confirmed with Sherri at [facility] that they would be able to accept pt. JAY followed up with Marcela in Admissions at [facility] who confirms if pt does not have NG tube, [facility] can accept with Dr. Dorado to follow. Insurance authorization will need to be obtained. Paperwork and PASRR in the chart. SW will continue to follow. Assessment:Pt who would benefit from SNF. Plan:[facility] has accepted vs [facility] has accepted. If pt does not need NG tube, then family would prefer [facility]. Insurance authorization will need to be obtained. Paperwork and PASRR in the chart. SW will continue to follow. MAN Mcclendon
--- NOTE | 2016-06-13 14:38 | NUR ---
Palliative care note D/A: Referral for palliative care consult kindly received today from Dr. Alejandro Ramirez DO. Pt is an 89 yof who is admitted for care from [facility]. She is recuperating from a colectomy due to her diverticulitis. Pt currently with NG tube and has been having persistent nausea. Plan is to remove NG today. Concern is that nausea may persist post removal NG which would impact pt desire/ability to maintain nutrition. Pt is also noted to have significant dementia. Dr. Ramirez has discussed with family/pt and they are open to discussion of pt situation/needs with palliative care provider. Pt to be seen by Dr. Cha. P: Palliative care to follow. Renay RODRIGUEZ, CCM
--- NOTE | 2016-06-13 15:40 | NUR ---
AM meds/Colostomy AM meds given late d/t pt being NPO. Administered while pt was eating lunch. New bag placed due to the other one unsticking from site. Replaced with a large Ronnie-Fit Natura barrier.
--- NOTE | 2016-06-13 16:06 | NUR ---
NUTRITION FOLLOW-UP ASSESS: 89 YO F admitted with pneumonia and CHF exacerbation. Pt had poor PO intake on full liquid diet and minimal PO intake prior to admit. Trickle TF started 06/04 and per RN tolerated well. TFs advanced to goal on 06/06, pt had multiple bouts of emesis and TFs placed on hold the same day. TF was not restarted, and NG tube was removed on 06/13 after a Gastrografin test. Pt continues to have nausea and low appetite. Per notes, she stated feeling sick to her stomach at the mention of food. Per RN, her sons have been vigilant about getting her to take small bites of food. Provided pt an Ensure Clear to sample. Pt stated she liked it, and would be willing to try drinking it at lunch and dinner. ST evaluation has been ordered. PMHx: Diverticulitis with perforated bowel status post hemicolectomy, CHF, HTN, dyslipidemia, A-fib, dementia. DIET: General. PO intake Refused-90% LABS: Gluc 116, ALT 51, Alb 3.3, Lipase 69 MEDICATIONS: Reviewed. Coumadin. GI: Stool via colostomy (06/13) SKIN: No issues noted, Rony 14 ANTHROPOMETRICS: Current Wt: 63.8 kg, BMI: 23.0 kg/m2. Admit weight: 65.91 kg. IBW: 56.8 kg ESTIMATED NEEDS: Calories: 8763-4484 kcal/day (25-30 kcal/kg BW) Protein: 65-78 g/day (1.0-1.2 g/kg BW) Fluids: 9379-9219 ml/day (25-30 cc/kg) NUTRITION DIAGNOSIS: 1) Inadequate oral intake related to inability to consume sufficient energy, as evidenced by minimal PO intake x 13 days.-PERSISTS. INTERVENTION: 1) Will change supplements to Ensure Clear on L&D trays per pt preference. 2) Restart enteral nutrition if pt is unable to meet at least 50% of estimated needs over the next three days. 3) If unable to restart enteral nutrition via mouth or tube, consider TPN. MONITOR/EVALUATE: PO intake, labs, GI/nutrition status, POC, ST eval. Follow per high nutrition risk guidelines. Addendum: 06/13/16 at [address] Auxiliary student documentation reviewed. I agree with above documentation. Soraya Hernandez, MARISOL, CD
--- NOTE | 2016-06-13 16:09 | PCM.CONPAL ---
Date of Service Jun 13, 2016 Date of Hospital Admission: May 31, 2016 at 19:49 Date of Palliative Consult: Jun 13, 2016 Requesting Provider: Lito Rodriguez MD Reason Palliative Care Consult: Other Symptoms, Goals of Care Discussion Hospital Unit @time of consult: Medical/Pediatric Care Palliative Care Recommendation Pleasant 89-year-old woman with perplexing history of nausea dating back to August,. Progressive through that time and now constant, intractable. Diagnosed with C. difficile enterocolitis in March, treated and then admitted with diverticulitis in April and underwent partial bowel resection and colostomy without improvement in nausea. Discharged briefly to SNF but continued to deteriorate and admitted to this facility on 05/31/2016, where she has been treated for acute respiratory failure secondary to influenza pneumonia , fluid overload and diastolic CHF, etc. Has continued with intractable nausea ( with secondary anorexia) throughout despite appropriate therapy and extensive evaluation. Palliative medicine consulted to assist with symptom management, and to assist patient and family in consideration of goals of care in the setting of her prolonged illness. Summary of palliative recommendations: -Symptom management (Pain/other)- recommendations reviewed with Dr. Ramirez. Suggest discontinuation of metoclopramide and ondansetron as they have been ineffective. Recommend trial of olanzapine 5 mg ODT at HS scheduled. Also recommend trial of dexamethasone, starting at 2 mg IV QAM, with plan to follow closely, monitor and adjust doses as needed. Reviewed patient's current medication list in detail and I can find no ongoing medications with high risk of inducing nausea- questioned the patient's family closely and they feel quite confident that none of her current cardiac medications were new or had significant dosage adjustments prior to last August when her symptoms began (an Exelon patch was started in June, but has been discontinued at various times previously, and now for more than 2 weeks, without improvement in nausea). Agree with discontinuation of her statin earlier. If possible, consider decreased dose of carvedilol, as I have occasionally seen in patients with such vague, persistent distress associated with this medication. -DPOA/Advanced Directives/POLST- continue with limited interventions as presently ordered (no CPR) -Family/emotional support- palliative medicine will continue to follow and support patient and family, and pursue further goals of care conversations in the coming days as needed Patient Goals: 1. Patient and family want to be told the truth about her illness, even if it is unpleasant. 2. Patient and family would like to be told prognosis when it can be predicted, to better guide treatment decisions. 3. Patient would choose quality of life over quantity of life, and defines quality as relief from her persistent nausea- in her own words, "just make it so that I do not have to wake up and go to sleep every day with this nausea" Additional Medical Diagnoses with primary management by Hospitalist team include : #. Persistent chronic nausea, with anorexia. #. Acute hypoxemic respiratory failure secondary to influenza A. Present on admission. Resolved. #. Severe protein caloric malnutrition. #. Acute on chronic diastolic CHF exacerbation. Present on admission. Improved. Resolved, stable and or chronic problems: #. History of diverticulitis s/p hemicolectomy. #. History of C. difficile toxin colitis. #. Hypertension, chronic. Present on admission #. Atrial fibrillation, chronic. Present on admission. Heart rate feeds paced at 80 bpm. #. Dyslipidemia, chronic. Present on admission #. Dementia, chronic, with short-term memory loss. Present on admission Problems: End of Life Preferences Limited interventions per EMR (no CPR) Goals of Care Patient and family hope for recovery and return to her level of function of one year ago Disposition To be determined Resuscitation Status Resuscitation Status: Limited Interventions Limited Interventions: Cardioversion/Defibrillation, Intubation w Mech Vent, BiPAP, Medications and IV Fluid POLST Updates/Changes Previous POLST?: No . Pain: None Symptom management: Nausea, Anxiety Pt History History of Present Illness Per prior note: Patient is an 89-year-old female with history of diverticulitis s/p recent partial colectomy now with colostomy, dementia, and atrial fibrillation who presented with persistent nausea, shortness of breath,productive cough, and respiratory distress, and was admitted for acute hypoxemic respiratory failure and possible pneumonia. The respiratory failure resolved but her nausea continued to be an issue. She states that her nausea has actually been going back even before her C. difficile diarrhea, diagnosed in 04/27/16 (possibly as early as 09/09). C. difficile toxin PCR during this admission was negative. CT abd/pelvis with contrast on 05/31/16 showed postsurgical changes of the partial colectomy and colostomy and hepatic steatosis, but no free intraperitoneal fluid or air, no dilated loops of bowel, and no other anatomic explanation for GI complaints. Her ostomy has been functioning and there is no apparent ileus on plain film. All antibiotics have now been stopped and she continues to have persistent nausea. According to her , she has been eating very poorly for the last 8 months and has been becoming progressively weaker. She reports generalized continuous abdominal pain somewhat worse in bilateral upper quadrants and persistent nausea with occasional vomiting. She denies blood in her stool. She denies fevers, chills, shortness of breath, coughing, wheezing. She denies NSAID use. She reports she has not had a colonoscopy in several years , possibly more than 10. She cannot remember the results of her last colonoscopy. Her father had colon cancer, diagnosed in his 50s. Brother with stomach cancer. Past Medical History Significant PMH Noted: History of diverticulitis and perforated bowel s/p hemicolectomy History of C. diff Hypertension Atrial fibrillation Dyslipidemia Dementia . 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 They all know that prior to onset of her unexplained nausea last August, patient was highly functional and independent, with only serious concern being chronic and very slowly progressive short-term memory deficit Family Members Issues: Family members all expressed concern over her chronic nausea and its impact on intake Social Support: Excellent strong family support Living Situation: Prior to hospitalizations and brief SNF stay, was looking at home independently Palliative Performance Scale PPS Patient Status: Baseline PPS Ambulation: Mainly Bed PPS Activity: Unable to do any work (since hospitalization in April) PPS Self-Care: Occasional assistance necessary PPS Intake: Minimal to sips PPS Conscious Level: Full or confusion Performance Scale: 50% POLST at Time of Admission Previous POLST?: No Allergy Allergies Reviewed: Yes Medications Current Medications: Current Medications Acetaminophen/ Premix 100 ml @ 400 mls/hr Q6H PRN IV Last administered on 06/12 10:10; Admin Dose 400 MLS/HR; Start 06/12/16 at 08:00; Stop 06/13/16 at 08 :01; Status DC Nystatin 500,000 unit PCHS PO Last administered on 06/13/16 15:40; Admin Dose 500,000 UNIT; Start 06/12/16 at 13:00 Saccharomyces Boulardii 250 mg BID PO; Start 06/13/16 at 20:30 Scheduled Carvedilol (Carvedilol) 25 Mg Tablet 25 MG PO BID Cetirizine HCl (24Hour Allergy) 10 Mg Tablet 10 MG PO DAILY Ciprofloxacin (Cipro) 500 Mg Tablet 500 MG PO BID Latanoprost (Latanoprost) 2.5 Ml Drops 1 DROP AFFECT_EYE HS Losartan Potassium (Losartan Potassium) 25 Mg Tablet 25 MG PO BID Metronidazole (Flagyl) 500 Mg Tablet 500 MG PO TID Oxybutynin Chloride ER (Oxybutynin Chloride ER) 10 Mg Tab.er.24 10 MG PO DAILY Pravastatin (Pravastatin) 40 Mg Tablet 40 MG PO DAILY Ranitidine (Ranitidine) 300 Mg Tablet 300 MG PO DAILY Rivastigmine (Rivastigmine) 13.3 Mg/24 Hour Patch.td24 1 PATCH TD DAILY Trazodone (Trazodone) 50 Mg Tablet 50 MG PO HS Scheduled PRN ([Auralgan]) 14 ML AFFECT_EAR Q4H PRN PRN For Pain Acetaminophen (Acetaminophen) 325 Mg Tablet 650 MG PO Q4H PRN PRN fever/pain Hydrocodone-Acetaminophen 5-325 mg (Hydrocodone-Acetaminophen 5-325 mg) 1 Each Tablet 1 TAB PO Q6H PRN PRN For Pain Ondansetron ODT (Ondansetron ODT) 4 Mg Tab.rapdis 8 MG PO Q6H PRN PRN For Nausea Objective Findings Exam Vital Sign - Last Date Time Temp Pulse Resp B/P Pulse Ox O2 Delivery O2 Flow Rate FiO2 06/13/16 12:46 36.4 80 18 154/74 93 Room Air 06/10/16 16:27 1.00 Intake and Output 06/12/16 06/12/16 06/13/16 Cumulative From/Thru 15:00 23:00 07:00 05/31/16 15:20 - 06/13/16 04:00 Intake Total 100 ml 436 ml 350 ml 70953 ml Output Total 250 ml 150 ml 65485 ml Balance -150 ml 286 ml 350 ml -6992 ml Intake Oral 100 ml 436 ml 3543 ml IV Total 350 ml 84048 ml Tube Feeding 600 ml FFP 1047 ml Tube Irrigant 1084 ml Output Urine Total 47039 ml Stool Total 250 ml 150 ml 6025 ml Emesis 850 ml # Voids 2 2 5 # Bowel Movements 3 Objective Pleasant elderly woman, oriented but with short-term memory deficit, resting in bed. In no obvious distress. Vital signs noted. Skin is warm and dry. Head and neck exam without acute focal findings. Neck without masses or adenopathy; no supraclavicular adenopathy. Lungs clear anterolaterally, heart sounds regular. Abdomen is scaphoid, soft, left lower quadrant ostomy, diffuse mild tenderness but no peritoneal signs or masses. Bowel sounds are active and normal sounding. Extremities without pitting edema. Neurologic grossly intact. Lab/Diagnostics Lab and Imaging results reviewed in detail in EMR. Time spent Total time 75 minutes; >50% face to face with patient and family, providing counselling regarding plans and recommendations, and in care coordination with her medical teams. copies to: Cori Wu David F MD Jun 13, 2016 16:09
--- NOTE | 2016-06-13 17:46 | NUR ---
Wound Care Order received to remove hanny at midline abdominal incision, 15 hanny removed. Colostomy appliance noted to be falling off and this was replaced with an eakins seal under a convex nathan wafer and a new bag. Pt tolerated treatment without complaint.
[2016-06-13] MEDS: OLANZapine Zydis ODT 5 mg Tablet PO SCH (20:20)
[2016-06-13 20:46] VITALS: BP 111/62; PULSE 80; RESP 18; O2SAT 94
[2016-06-14 06:26] VITALS: BP 141/73; PULSE 80; RESP 18; O2SAT 90
[2016-06-14 07:18] LABS: Mean Corpuscular Hemoglobin 30.1 pg (27.0-35.0); Mean Corpuscular Volume 93.5 fL (81-100)
[2016-06-14 07:25] LABS: INR 1.85 ratio
[2016-06-14] MEDS: Insulin LISPRO 300 Unit/3 mL Inj SUBQ SCH ×3 (08:00→16:38)
[2016-06-14 08:30] VITALS: BP 136/81; PULSE 80; RESP 18; O2SAT 92
--- NOTE | 2016-06-14 08:30 | NUR ---
Off unit-Nuclear Med Pt off unit via stretcher for stomach emptying test. Pt c/o back pain, states it was possibly from laying too long in bed. Pt was NPO. will medicate upon return if still in pain. Pts son in room. Wanted to accompany pt for test to encourage with feeding. IV in RFA patent.
--- NOTE | 2016-06-14 12:25 | PCM.PALLBR ---
Palliative Care Recommendation Pleasant 89-year-old woman with perplexing history of nausea dating back to August,. Progressive through that time and now constant, intractable. Diagnosed with C. difficile enterocolitis in March, treated and then admitted with diverticulitis in April and underwent partial bowel resection and colostomy without improvement in nausea. Discharged briefly to SNF but continued to deteriorate and admitted to this facility on 05/31/2016, where she has been treated for acute respiratory failure secondary to influenza pneumonia , fluid overload and diastolic CHF, etc. Had continued with intractable nausea ( with secondary anorexia) throughout despite appropriate therapy and extensive evaluation. Palliative medicine consulted to assist with symptom management, and to assist patient and family in consideration of goals of care in the setting of her prolonged illness. Summary of palliative recommendations: -Symptom management (Pain/other)- recommendations reviewed with Dr. Ramirez once again. Patient appears to be having some improvement in her chronic nausea with the medications introduced yesterday. For now, continue olanzapine 5 mg ODT at HS scheduled. Also continue dexamethasone, 2 mg IV QAM, with plan to follow closely, monitor and adjust doses as needed. After consultation with other palliative providers, another agent that could be considered and added if necessary would be doxepin, initially at 75 mg QHS ( will not start that at this time, pending assessment of response to agents above over the next 24-48 hours). Reviewed patient's current medication list in detail and I can find no ongoing medications with high risk of inducing nausea- questioned the patient's family closely and they feel quite confident that none of her current cardiac medications were new or had significant dosage adjustments prior to last August when her symptoms began (an Exelon patch was started in June, but has been discontinued at various times previously, and now for more than 2 weeks, without improvement in nausea). Agree with discontinuation of her statin earlier. If possible, consider decreased dose of carvedilol, as I have occasionally seen in patients with such vague, persistent distress associated with this medication. -DPOA/Advanced Directives/POLST- continue with limited interventions as presently ordered (no CPR) -Family/emotional support- palliative medicine will continue to follow and support patient and family, and pursue further goals of care conversations in the coming days as needed Patient Goals: 1. Patient and family want to be told the truth about her illness, even if it is unpleasant. 2. Patient and family would like to be told prognosis when it can be predicted, to better guide treatment decisions. 3. Patient would choose quality of life over quantity of life, and defines quality as relief from her persistent nausea- in her own words, "just make it so that I do not have to wake up and go to sleep every day with this nausea" Additional Medical Diagnoses with primary management by Hospitalist team include : #. Persistent chronic nausea, with anorexia. #. Acute hypoxemic respiratory failure secondary to influenza A. Present on admission. Resolved. #. Severe protein caloric malnutrition. #. Acute on chronic diastolic CHF exacerbation. Present on admission. Improved. Resolved, stable and or chronic problems: #. History of diverticulitis s/p hemicolectomy. #. History of C. difficile toxin colitis. #. Hypertension, chronic. Present on admission #. Atrial fibrillation, chronic. Present on admission. Heart rate feeds paced at 80 bpm. #. Dyslipidemia, chronic. Present on admission #. Dementia, chronic, with short-term memory loss. Present on admission Problems: End of Life Preferences Limited interventions per EMR (no CPR) Goals of Care Patient and family hope for recovery and return to her level of function of one year ago Disposition To be determined Resuscitation Status Resuscitation Status: Limited Interventions Limited Interventions: Cardioversion/Defibrillation, Intubation w Mech Vent, BiPAP, Medications and IV Fluid POLST Updates/Changes Previous POLST?: No . Pain: Mild (pharyngitis) Total time 45 minutes; >50% face to face with patient and family, providing counselling regarding plans and recommendations, and in care coordination with her medical teams. Palliative Brief Note Date of Service Jun 14, 2016 . Returned to reevaluate patient. Prior to visiting, reviewed her updated records in the EMR in detail. Also reviewed status/plans with her hospitalist. On my arrival, one of her sons was at bedside. She was just being prepared for transport downstairs for her gastric emptying study. Patient and her son reported significant improvement in her nausea. Said that today she has a little bit of pharyngitis from prior NG and we talked about options for treating that. Denied other distress. On brief exam, fatigued-appearing elderly woman, otherwise in no distress. Vital signs noted. Head and neck exam with no changes. Oropharynx clear. Heart and lung exam stable. Abdomen soft and without significant tenderness and without peritoneal signs. Laboratories stable; gastric emptying study results pending. Jv Cha MD Jun 14, 2016 12:25
[2016-06-14] MEDS ORDERED: Benzocaine-Menthol Lozenge 2/Pkg PO PRN (12:30)
--- NOTE | 2016-06-14 13:02 | NUR ---
Called and spoke with Connor Gonzalez at [facility] and he is requesting updated note now that patient has no NG tube. Faxed those to [phone] for review, auth will need to be started by the facility. Updated MAN Addendum: 06/14/16 at 1348 by ANNABEL DAVE CM Faxed updated clinicals for review and now patient will not be discharging today, palliative care is now involved and working on some goals with patient. MAN gave this update to me
--- NOTE | 2016-06-14 13:42 | NUR ---
Social Work: Continued d/c planning Data: Pt is on day 14 of hospitalization. EMR reviewed, pt discussed in rounds. states that pt will no longer have an NG tube. Pt and family prefer [facility] in this situation, if pt had needed to d/c with the NG tube, pt would have gone to [facility]. UR specialist has started the auth process for pt's insurance. SENIOR SQL DBA spoke with who states pt will not d/c today due to getting her nausea under control. SENIOR SQL DBA will continue to follow. Assessment: Pt who is independent at baseline. Plan: Pt will d/c to [facility] when medically stable, likely tomorrow. SENIOR SQL DBA will continue to follow. MAN Lynn
[2016-06-14 13:43] VITALS: BP 122/75; PULSE 80; RESP 16; O2SAT 92
[2016-06-14] MEDS: Nystatin 100,000 Unit/mL 5 mL Suspension PO SCH ×4 (13:47→22:00)
[2016-06-14] MEDS: Dexamethasone 4 mg/mL Inj IVPUSH SCH (13:56)
[2016-06-14 14:00] VITALS: PULSE 80; RESP 18; O2SAT 95
--- NOTE | 2016-06-14 14:01 | PCM.PNMED ---
Subjective Date of Service Jun 14, 2016 Subjective Patient is smiling and appears comfortable today. She denies nausea and abdominal pain, but reports sore throat, decreased appetite, and abdominal discomfort. No fevers, chills vomiting, diarrhea. Exam Vital Signs Vital Sign - Last Date Time Temp Pulse Resp B/P Pulse Ox O2 Delivery O2 Flow Rate FiO2 06/14/16 08:30 36.3 80 18 136/81 92 Room Air 06/10/16 16:27 1.00 Intake and Output 06/13/16 06/13/16 06/14/16 Cumulative From/Thru 15:00 23:00 07:00 05/31/16 15:20 - 06/14/16 06:27 Intake Total 472 ml 400 ml 06612 ml Output Total 175 ml 460 ml 13853 ml Balance 297 ml -60 ml -6755 ml Intake Oral 450 ml 400 ml 4393 ml IV Total 22 ml 13930 ml Tube Feeding 600 ml FFP 1047 ml Tube Irrigant 1084 ml Output Urine Total 07531 ml Stool Total 175 ml 460 ml 6660 ml Emesis 850 ml # Voids 2 1 8 # Bowel Movements 3 Exam General: Alert, Cooperative, No acute distress. Oriented to name. Eyes: PERRLA, EOMI Mouth: Mouth Normal Chest & Lungs: Chest Wall Normal, Clear to auscultation bilaterally Cardiovascular: Exam Unremarkable, Regular Rate/Rhythm, Normal S1, Normal S2, No Murmurs/Rubs/Gallops Abdomen: Diffuse mild abdominal tenderness/discomfort to palpation. No guarding or rebound tenderness. Surgery incision mid-abdomen without erythema or discharge. Colostomy in place, Non-distended, No masses, Normoactive bowel tones, Soft Musculoskeletal: Unremarkable, Normal Range of Motion Extremities: No cyanosis/clubbing/edma bilat Neurological: Grossly Neurologically Intact, Normal Speech Lab and Diagnostics Result Diagram: 06/14/16 0640 06/14/16 0640 X-Rays, CTs and MRIs PROCEDURE: CT ABDOMEN AND PELVIS WITH CONTRAST ([id number]) COMPARISON: [facility], CR, ABDOMEN 1 VIEW, 05/20/2016, 9:54. [facility], CT, ABDOMEN/PELVIS WITH CONTRAST, 05/17/2016, 15:26. [facility] , CR, ABDOMEN ACUTE SERIES, 05/17/2016, 12:47. [facility], CT, ABDOMEN/ PELVIS WITH CONTRAST, 03/19/2016, 12:30. [facility], CT, ABDOMEN/PELVIS WITH CONTRAST, 03/17/2016, 13:32. [facility], CT, ABDOMEN/PELVIS WITH CONTRAST, 02/09/2015, 10:15. [facility], RG, CT ABDOMEN/PELVIS WITH CONTRAST, 08/13/2004, 22:58. IMPRESSION: #1. Postsurgical changes compatible with partial colectomy and left lower quadrant colostomy formation. 2. No free intraperitoneal fluid or air. 3. No dilated loops of bowel. 4. Atherosclerosis including the coronary vasculature. 5. Bilateral pleural effusions. 6. Bibasilar lung consolidation which could represent compressive atelectasis, however infectious process cannot be excluded please correlate with clinical and laboratory data. 7. Bilateral adnexal cysts. 8. No evidence of abscess. 9. Hepatic steatosis. Dictated by: Coleen Laughlin MD, PhD on 05/31/2016 at 18:12 PROCEDURE: X-RAY KUB ([id number]) IMPRESSION: Nasogastric tube is now present, with tip in the gastric body. Dictated by: Kevyn Das M.D. on 06/04/2016 at 17:37 PROCEDURE: CT ABDOMEN AND PELVIS WITH CONTRAST ([id number]) IMPRESSION: 1. Small bowel obstruction, new since the prior examination. No focal transition point. 2. No change in bilateral adnexal cysts; further assessment with ultrasound is recommended. 3. Decreased bibasilar pleural-parenchymal opacities. Dictated by: Laura Howard M.D. on 06/07/2016 at 13:56 PROCEDURE: NM HIDA SCAN WITH CCK IMPRESSION: Normal examination and gallbladder ejection fraction Dictated by: Denis Moses M.D. on 06/11/2016 at 14:50 . Cardiac Echo Impressions Echocardiogram Report Name: MAXI AGUIAR Study Date: 06/01/2016 Interpretation Summary 1. Normal left ventricular size and wall thickness with overall preserved systolic function. 2. Normal right ventricular size and systolic function. 3. No significant valvular pathology appreciated. 4. Bilateral pleural effusions . Additional Diagnostics PROCEDURE: Esophagogastroduodenoscopy. INDICATION: Chronic nausea and abdominal pain. IMPRESSION: Aphthous ulcer 28 cm, otherwise normal-appearing exam. Normal exam from the esophagus to second portion of the duodenum. Multiple random biopsies were not obtained throughout the antrum and gastric body as there was more than expected bleeding with a single biopsy that was obtained to evaluate for H. pylori. Mc Chisholm MD 06/09/16 1405 Date of Service: 06/11/16 1158 PROCEDURE: NM HIDA SCAN WITH CCK IMPRESSION: Normal examination and gallbladder ejection fraction Dictated by: Denis Moses M.D. on 06/11/2016 at 14:50 . Date of Service: 06/13/16 0900 PROCEDURE: X-RAY UPPER GI WITH GASTROGRAPHIN AND SMALL BOWEL FOLLOW-THROUGH ( [id number]) INDICATIONS: Nausea/vomiting, abdominal pain IMPRESSION: Limited Gastrografin examination demonstrating grossly normal upper GI series and small bowel follow-through. Dictated by: Yuval WILSON Interpreted: Lizbeth Harris MD on 06/13/2016 at 11: 33 Assessment & Plan Patient is an 89-year-old female with history of diverticulitis s/p recent partial colectomy now with colostomy, dementia, and atrial fibrillation who was admitted for acute hypoxemic respiratory failure and possible pneumonia, which has mostly resolved. Gastroenterology was consulted for persistent nausea of unknown cause. Persistent nausea - Nausea has been present for weeks, even months, prior to her c. difficile, surgery for diverticulitis, and has not changed significantly since the surgery. Repeat CT scan on 06/07 suggested partial SBO but she did not have clinical symptoms of SBO. Will evaluate with a small bowel follow through to check transit times from the mouth to the cecum. If this is negative, will order gastric emptying study. However, if these tests are negative, consider neurological or psychologic causes for her abdominal discomfort and nausea. Her nausea is chronic and unchanged at this time. Family reports she occasionally has days where her appetite and eating are excellent, only to relapse the next 1 -2 days. Gastrografin small bowel follow through was negative. Given the fact that her symptoms significantly improved with olanzapine, her symptoms are most likely dementia and mood-related rather than GI related. Recommend continuing olanzapine outpatient. - NG tube discontinued - Gastric emptying study pending. - If the remaining studies are negative, consider referral to a geriatric neuropsychiatrist. - Discontinued Zofran and Reglan as these have not been effective. - Pt on trial of olanzapine and dexamethasone for nausea, tolerating well and improving clinically. - Follow up with Dr. Chavis in 4 weeks Diffuse abdominal pain - Pt presents with diffuse abdominal pain, worse in bilateral upper quadrants. She appears to have diffuse abdominal pain on exam but occasionally presents with focal RUQ and LLQ abdominal pain. CT abd pelvis on 05/31/15 was negative for any intra-abdominal cause of nausea or abdominal pain. Repeat CT abd/pelvis with contrast showed multiple moderately distended loops of mid small bowel within the abdomen pelvis with no discrete transition point between dilated and nondilated small bowel. While this is indicative of a small bowel obstruction, this seems less likely as she does not any change in her chronic nausea or abdominal pain despite the change from CT on 05/31, and she continues to move her bowels. EGD on 06/09 showed an aphthous ulcer but otherwise was negative for any cause of abdominal pain or nausea. HIDA scan was negative. Given her chronic bedridden status and tympany on exam, her abdominal discomfort is likely secondary poor bowel activity due to lack of mobility. We recommend mobilizing the patient. - Continue Pepcid. - Recommend physical therapy and encouraging ambulation. Elevated LFTs, acute. - Patient's AST increased from 36 to 51 and ALT increased from 21 to 34 on . LFTs normalized but have now increased again. Pt is on pravastatin, acetaminophen, and losartan, which can cause elevated LFTs. May also be secondary to gallbladder pathology. If they are related to statins, this level of elevation does not warrant discontinuing statins. - Continue to monitor. - Recommend outpatient follow up on LFTs in 2 weeks Elevated lipase, acute. - Lipase was mildly elevated at 67 but pancreas was normal x2 on abd/pelvis CT. Likely not cause of nausea and abdominal pain, but consider chronic pancreatitis in absence of other findings. - Continue to monitor. History of diverticulitis s/p hemicolectomy. - Presumed stable. Initial CT scan was unremarkable without evidence of anastomosis breakdown or diverticuli or diverticulitis. Her colectomy does not seem related to her persistent nausea and anorexia. - Follow bowel function clinically. History of C. difficile toxin colitis. - C diff PCR of ostomy fluid on 06/05/16 was negative. GI Prophylaxis: Not indicated VTE Prophylaxis: Theraputic Anticoag with Warfarin VTE Mechanical Devices: Venous Foot Pump Resuscitation Status: Limited Interventions Limited Interventions: Cardioversion/Defibrillation, Intubation w Mech Vent, BiPAP, Medications and IV Fluid Quisumbing,Marco R Jun 14, 2016 13:10
[2016-06-14 14:51] VITALS: BP 125/72; PULSE 80; RESP 16; O2SAT 95
--- NOTE | 2016-06-14 15:32 | DRSVH ---
PROCEDURE: VA GASTRIC EMPTYING STUDY ([id number]) RADIOPHARMACEUTICAL: 0.532 mCi Tc-99m sulfur colloid in an egg sandwich. INDICATIONS: Nausea, abdominal pain, poor appetite. TECHNIQUE: A Tc-99m labeled sulfur colloid labeled egg sandwich or oatmeal was served to the patient. Anterior and posterior planar images of the abdomen were obtained at 0 minutes and 30 minutes, then at hourly intervals up to 4 hours. The patient was upright and ambulating during the interval. COMPARISON: None. FINDINGS: The stomach has normal size, morphology, and position. There is normal emptying of solid gastric con tents from the stomach by visual inspection. No gastroesophageal reflux is visualized. The percentage of tracer retained at specific time points are as follows: Time point Percent gastric retention Normal range 30 minutes 100% 70% or more 1 hour 86% 30% to 90% 2 hours 62% 60% or less 3 hours 47% 30% or less 4 hours 26% 10% or less Gastric retention of less than 70% at 30 minutes, or less than 30% at 1 hour, would suggest abnormall y rapid gastric emptying (dumping). IMPRESSION: Abnormal study demonstrating delayed gastric emptying. Dictated by: Coleen Laughlin MD, PhD on 06/14/2016 at 15:31 Approved by: Coleen Laughlin MD, PhD on 06/14/2016 at 15:31
--- NOTE | 2016-06-14 15:57 | PCM.PNMED ---
Subjective Date of Service Jun 14, 2016 Subjective No overnight events. Patient complains more of her sore throat over her nausea this morning. Otherwise no concerns or complaints. Denies CP, SOB, cough, fevers or chills. Exam Vital Signs Vital Sign - Last Date Time Temp Pulse Resp B/P Pulse Ox O2 Delivery O2 Flow Rate FiO2 06/14/16 15:21 Room Air 06/14/16 14:51 36.0 80 16 125/72 95 06/10/16 16:27 1.00 Intake and Output 06/13/16 06/13/16 06/14/16 Cumulative From/Thru 15:00 23:00 07:00 05/31/16 15:20 - 06/14/16 06:27 Intake Total 472 ml 400 ml 37694 ml Output Total 175 ml 460 ml 03349 ml Balance 297 ml -60 ml -6755 ml Intake Oral 450 ml 400 ml 4393 ml IV Total 22 ml 18280 ml Tube Feeding 600 ml FFP 1047 ml Tube Irrigant 1084 ml Output Urine Total 93135 ml Stool Total 175 ml 460 ml 6660 ml Emesis 850 ml # Voids 2 1 8 # Bowel Movements 3 Exam GEN: Pleasantly confused well developed, well nourished elderly in NAD HEENT: sclerae anicteric, dry mucous membranes, thrush on tongue improved RESP: Poor inspiratory effort, crackles appreciated on R mid-upper lobes, breathing comfortably on 2L CARDIO: Regular rate and rhythm, no murmur ABD: BS present, tenderness to palpation at LLQ, Colostomy with stool in bag at lower left with no signs of irritation Extremities: No edema Neuro: Oriented to self. Psych:Normal mood and affect. IVs and Medications Medications Reviewed: Medications were reviewed in detail Lab and Diagnostics Result Diagram: 06/14/16 0640 06/14/16 0640 X-Rays, CTs and MRIs PROCEDURE: CT ABDOMEN AND PELVIS WITH CONTRAST ([id number]) COMPARISON: [facility], CR, ABDOMEN 1 VIEW, 05/20/2016, 9:54. [facility], CT, ABDOMEN/PELVIS WITH CONTRAST, 05/17/2016, 15:26. [facility] , CR, ABDOMEN ACUTE SERIES, 05/17/2016, 12:47. [facility], CT, ABDOMEN/ PELVIS WITH CONTRAST, 03/19/2016, 12:30. [facility], CT, ABDOMEN/PELVIS WITH CONTRAST, 03/17/2016, 13:32. [facility], CT, ABDOMEN/PELVIS WITH CONTRAST, 02/09/2015, 10:15. [facility], RG, CT ABDOMEN/PELVIS WITH CONTRAST, 08/13/2004, 22:58. IMPRESSION: #1. Postsurgical changes compatible with partial colectomy and left lower quadrant colostomy formation. 2. No free intraperitoneal fluid or air. 3. No dilated loops of bowel. 4. Atherosclerosis including the coronary vasculature. 5. Bilateral pleural effusions. 6. Bibasilar lung consolidation which could represent compressive atelectasis, however infectious process cannot be excluded please correlate with clinical and laboratory data. 7. Bilateral adnexal cysts. 8. No evidence of abscess. 9. Hepatic steatosis. Dictated by: Coleen Laughlin MD, PhD on 05/31/2016 at 18:12 PROCEDURE: X-RAY KUB ([id number]) IMPRESSION: Nasogastric tube is now present, with tip in the gastric body. Dictated by: Kevyn Das M.D. on 06/04/2016 at 17:37 PROCEDURE: CT ABDOMEN AND PELVIS WITH CONTRAST ([id number]) IMPRESSION: 1. Small bowel obstruction, new since the prior examination. No focal transition point. 2. No change in bilateral adnexal cysts; further assessment with ultrasound is recommended. 3. Decreased bibasilar pleural-parenchymal opacities. Dictated by: Laura Howard M.D. on 06/07/2016 at 13:56 PROCEDURE: NM HIDA SCAN WITH CCK IMPRESSION: Normal examination and gallbladder ejection fraction Dictated by: Denis Moses M.D. on 06/11/2016 at 14:50 . Cardiac Echo Impressions Echocardiogram Report Name: MAXI AGUIAR Study Date: 06/01/2016 Interpretation Summary 1. Normal left ventricular size and wall thickness with overall preserved systolic function. 2. Normal right ventricular size and systolic function. 3. No significant valvular pathology appreciated. 4. Bilateral pleural effusions . Additional Diagnostics PROCEDURE: Esophagogastroduodenoscopy. INDICATION: Chronic nausea and abdominal pain. IMPRESSION: Aphthous ulcer 28 cm, otherwise normal-appearing exam. Normal exam from the esophagus to second portion of the duodenum. Multiple random biopsies were not obtained throughout the antrum and gastric body as there was more than expected bleeding with a single biopsy that was obtained to evaluate for H. pylori. Mc Chisholm MD 06/09/16 1405 Date of Service: 06/11/16 1158 PROCEDURE: NM HIDA SCAN WITH CCK IMPRESSION: Normal examination and gallbladder ejection fraction Dictated by: Denis Moses M.D. on 06/11/2016 at 14:50 . Date of Service: 06/13/16 0900 PROCEDURE: X-RAY UPPER GI WITH GASTROGRAPHIN AND SMALL BOWEL FOLLOW-THROUGH ( [id number]) INDICATIONS: Nausea/vomiting, abdominal pain IMPRESSION: Limited Gastrografin examination demonstrating grossly normal upper GI series and small bowel follow-through. Dictated by: Yuval Byrne RRA Interpreted: Lizbeth Harris MD on 06/13/2016 at 11: 33 Assessment & Plan Patient is an 89-year-old female with history of diverticulitis s/p partial colectomy with colostomy, dementia, atrial fibrillation presenting with cough and dyspnea and admitted for pneumonia and acute CHF exacerbation. Acute, and/or high risk problems: #. Persistent chronic nausea, with anorexia. Improving - Repeat CT scan on 06/07 suggested possible partial SBO, abx stopped due to no clinical symptoms of SBO - Upper endoscopy performed 06/09 shows no significant pathology - HIDA scan is negative on 06/11. - Continue Phenergan PRN - No acute findings to date, highly suspicious for worsening dementia attributing to symptoms - Upper GI series and small bowel follow-through, normal - Discontinued Zofran and Reglan as these have not been effective. - Appreciate GI consult with time and expertise Gastric emptying study pending. consider referral to Geriatric neuropsychiatrist if remaining studies are negative Follow up with Dr. Chavis in 4 weeks - Appreciate palliative consult with time and expertise Started on olanzapine and dexamethasone for nausea with good results - NG tube DC'd, encourage PO intake #. Acute hypoxemic respiratory failure secondary to influenza A. Present on admission. Resolved. - CXR revealed right pleural effusion and patchy atelectasis versus infiltrate. - Influenza treated with Tamiflu - ProBNP was 5749 on 05/31 with no signs of fluid overload #. Severe protein caloric malnutrition. - NG tube DC's, encourage PO intake #. Acute on chronic diastolic CHF exacerbation. Present on admission. Improved. - Holding Lasix at present Resolved, stable and or chronic problems: #. History of diverticulitis s/p hemicolectomy. Present on admission. Presumed stable. Initial CT scan was unremarkable without evidence of anastomosis breakdown or diverticuli or diverticulitis. Her colectomy does not seem related to her persistent nausea and anorexia. No SBO clinically. - Follow bowel function clinically. #. History of C. difficile toxin colitis. #. Hypertension, chronic. Present on admission - Continue home losartan, carvedilol #. Atrial fibrillation, chronic. Present on admission. Heart rate feeds paced at 80 bpm. -PT/INR in AM -Warfarin resumed after her EGD #. Dyslipidemia, chronic. Present on admission - Holding home statin present #. Dementia, chronic. Present on admission DVT prophy: Anticoagulated on warfarin GI prophy: H2 philip CODE: Limited interventions Dispo: Anticipate discharge to [facility] in 1-2 days, once patient is tolerating oral intake. GI Prophylaxis: H2 philip VTE Prophylaxis: Theraputic Anticoag with Warfarin VTE Mechanical Devices: Venous Foot Pump Resuscitation Status: Limited Interventions Limited Interventions: Cardioversion/Defibrillation, Intubation w Mech Vent, BiPAP, Medications and IV Fluid Time spent 40 minutes Attending Statement I have seen and evaluated patient at bedside in addition to directly supervising care provided by resident physician. I agree with above documentation. Vasyl Ramirez DO Jun 14, 2016 15:48 Jean Cruz DO Jun 15, 2016 08:49
--- NOTE | 2016-06-14 17:57 | NUR ---
Bladder/Shift note Pleasant pt. Notes to have short term memory loss. Family at bedside most shift. Provide great help with feedings. Pt worked with PT today, observed steady ambulation with FWW, 1PA. Pt up to chair for dinner. Bladder scan done around 1700. noted to be 85mL. Pt denies discomfort with lower abd. Points to occasional discomfort at midline-incisional area. Has denied need for pain meds so far. Swallow study completed today-MD discussed results with family. Addendum: 06/14/16 at 1803 by ROCKY MOSELEY RN Colostomy bag on L-mid abd draining brown/clear/liquid stool. IV on RFA patent. Meds taken whole with water.
[2016-06-14 20:45] VITALS: BP 116/71; PULSE 80; RESP 16; O2SAT 94
[2016-06-14] MEDS: Promethazine Inj 12.5 MG in Dextrose 5%-Pha MIX 50 ML IV PRN (20:54)
[2016-06-14] MEDS: OLANZapine Zydis ODT 5 mg Tablet PO SCH (20:55)
--- NOTE | 2016-06-15 03:42 | NUR ---
Nausea Pt complaint of nausea at HS. Received IV Phenergan with good results. Pt has not reported nausea since.
[2016-06-15 06:51] LABS: Mean Corpuscular Hemoglobin 29.9 pg (27.0-35.0); Mean Corpuscular Volume 91.4 fL (81-100)
[2016-06-15 07:01] LABS: INR 2.47 ratio
[2016-06-15] MEDS: Dexamethasone 4 mg/mL Inj IVPUSH SCH (08:26)
[2016-06-15] MEDS: OLANZapine Zydis ODT 5 mg Tablet PO SCH ×2 (08:51→21:54)
[2016-06-15] MEDS ORDERED: OLAN5TAB25 PO (10:05)
[2016-06-15] MEDS ORDERED: DEX1 PO (10:05)
--- NOTE | 2016-06-15 10:35 | NUR ---
Spoke to Connor Gonzalez about this patient and he did come and see this patient at the bedside. He is needing to see patient have increased intake and they are also tight on beds. He is needing notes from overnight and meal monitoring, then he will go to his MD and access for approval to start authorization. He is not likely to admit this patient until Saturday. 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
[2016-06-15] MEDS: Nystatin 100,000 Unit/mL 5 mL Suspension PO SCH ×4 (10:36→21:57)
[2016-06-15 11:24] VITALS: BP 107/72; PULSE 83; RESP 14; O2SAT 98
--- NOTE | 2016-06-15 13:28 | PCM.PALLBR ---
Palliative Care Recommendation Pleasant 89-year-old woman with perplexing history of nausea dating back to August,. Progressive through that time and now constant, intractable. Diagnosed with C. difficile enterocolitis in March, treated and then admitted with diverticulitis in April and underwent partial bowel resection and colostomy without improvement in nausea. Discharged briefly to SNF but continued to deteriorate and admitted to this facility on 05/31/2016, where she has been treated for acute respiratory failure secondary to influenza pneumonia , fluid overload and diastolic CHF, etc. Had continued with intractable nausea ( with secondary anorexia) throughout despite appropriate therapy and extensive evaluation. Palliative medicine consulted to assist with symptom management, and to assist patient and family in consideration of goals of care in the setting of her prolonged illness. Summary of palliative recommendations: -Symptom management (Pain/other)- recommendations reviewed with Dr. Ramirez once again. Patient continues with improvement in her chronic nausea with the medications introduced several days ago. For now, continue olanzapine 5 mg ODT BID scheduled (NOT prn). Also continue dexamethasone, 2 mg PO QAM scheduled. After consultation with other palliative providers, another agent that could be considered and added if necessary would be doxepin, initially at 75 mg QHS ( will not start that at this time as she has had very good response to other agents noted above). Dexamethasone could also be increased as needed to 4 mg QAM. Reviewed patient's current medication list in detail and I can find no ongoing medications with high risk of inducing nausea- questioned the patient's family closely and they feel quite confident that none of her current cardiac medications were new or had significant dosage adjustments prior to last August when her symptoms began (an Exelon patch was started in June, but has been discontinued at various times previously, and now for more than 2 weeks, without improvement in nausea). Agree with discontinuation of her statin earlier. If possible, consider decreased dose of carvedilol, as I have occasionally seen in patients with such vague, persistent distress associated with this medication. -DPOA/Advanced Directives/POLST- continue with limited interventions as presently ordered (no CPR) -Family/emotional support- palliative medicine will continue to follow and support patient and family Patient Goals: 1. Patient and family want to be told the truth about her illness, even if it is unpleasant. 2. Patient and family would like to be told prognosis when it can be predicted, to better guide treatment decisions. 3. Patient would choose quality of life over quantity of life, and defines quality as relief from her persistent nausea- in her own words, "just make it so that I do not have to wake up and go to sleep every day with this nausea" Additional Medical Diagnoses with primary management by Hospitalist team include : #. Persistent chronic nausea, with anorexia. #. Acute hypoxemic respiratory failure secondary to influenza A. Present on admission. Resolved. #. Severe protein caloric malnutrition. #. Acute on chronic diastolic CHF exacerbation. Present on admission. Improved. Resolved, stable and or chronic problems: #. History of diverticulitis s/p hemicolectomy. #. History of C. difficile toxin colitis. #. Hypertension, chronic. Present on admission #. Atrial fibrillation, chronic. Present on admission. Heart rate feeds paced at 80 bpm. #. Dyslipidemia, chronic. Present on admission #. Dementia, chronic, with short-term memory loss. Present on admission Problems: End of Life Preferences Limited interventions per EMR (no CPR) Goals of Care Patient and family hope for recovery and return to her level of function of one year ago Disposition Probable SNF within next 24-48 hours Resuscitation Status Resuscitation Status: Limited Interventions Limited Interventions: Cardioversion/Defibrillation, Intubation w Mech Vent, BiPAP, Medications and IV Fluid POLST Updates/Changes Previous POLST?: No . Pain: Mild (pharyngitis) Symptom management: Nausea Total time 40 minutes; >50% face to face with patient and family, providing counselling regarding plans and recommendations, and in care coordination with her medical teams. Palliative Brief Note Date of Service Jun 15, 2016 . Returned to reevaluate patient. Prior to visiting, reviewed updated records in the EMR in detail and spoke with her bedside nurse and with her hospitalist. When I arrived, she was sitting up in the chair eating breakfast. Appeared stronger and was in no distress. Her older son was at bedside and said that she has improved 100% over the last 48 hours. He was pleased that she had eaten most of her breakfast. She denied any nausea or abdominal pain, and only had mild pharyngitis (presumed secondary to the NG tube) which was slowly improving. On exam, vital signs noted. Skin warm and dry and pink. Physical exam otherwise remains stable and unchanged. Labs and imaging studies reviewed and results discussed with patient and her son. Also reviewed the results of the gastric emptying study which was mildly abnormal. Jv Cha MD Jun 15, 2016 13:28
[2016-06-15 14:09] VITALS: BP 116/75; RESP 16; O2SAT 95
--- NOTE | 2016-06-15 14:33 | NUR ---
NUTRITION FOLLOW-UP: ASSESS: 89 YO F admitted with pneumonia and CHF exacerbation. Trickle TF started 06/04 and tolerated well. TFs advanced to goal on 06/06, pt had multiple bouts of emesis and TFs placed on hold the same day. NG tube was removed on 06/13 after a Gastrografin test. Pt is on a general diet with 1:1 feeding. Her PO intake is slowly improving to 25-50% and pt is receiving Ensure CL per pt preference. Per RN, her sons have been vigilant about getting her to take small bites of food. PMHx: Diverticulitis with perforated bowel status post hemicolectomy, CHF, HTN, dyslipidemia, A-fib, dementia. DIET: General. PO intake 25-50% LABS: Reviewed: Glu 132, AST 74, ALT 84, Alb 3.3 MEDICATIONS: Reviewed. Coumadin. GI: Stool via colostomy (06/15) SKIN: No issues noted, Rony 14 ANTHROPOMETRICS: Current Wt: 62.7 kg, BMI: 23.0 kg/m2. Admit weight: 65.91 kg. IBW: 56.8 kg ESTIMATED NEEDS: (based off admit wt) Calories: 9784-5336 kcal/day (25-30 kcal/kg BW) Protein: 65-78 g/day (1.0-1.2 g/kg BW) NUTRITION DIAGNOSIS: 1) Inadequate oral intake related to inability to consume sufficient energy, as evidenced by minimal PO intake x 13 days.-IMPROVING INTERVENTION: 1) Continue with current supplement of Ensure CL and continue to encourage PO intake w/ 1:1 feedings MONITOR/EVALUATE: PO intake, labs, GI/nutrition status, POC, ST eval. Follow per high nutrition risk guidelines.
--- NOTE | 2016-06-15 16:17 | NUR ---
Social Work: Continued d/c planning Data: Pt is on day 15 of hospitalization. EMR reviewed. [employer]OLD [employer]ONDER spoke with Faustino with [facility] who states they will likely have a bed available tomorrow afternoon. The fax number to fax clinicals to is [phone]. The facility is requesting a doc to doc and states that Dr Gini Velez is special education teaching assistant tomorrow and the number to call is [phone]. SHE[employer] MOLD BONDER will continue to follow. Assessment: Pt who is independent at baseline. Plan: Pt will d/c to [facility] when medically stable, likely tomorrow. SHELL MOLD BONDER will continue to follow. MAN Lynn
--- NOTE | 2016-06-15 18:11 | NUR ---
Appetite Pt appetite has improved but pt still requires prompting at meal times, eating approx 60% of meals. Pt has asked for ice cream x 3 and soda x 2. Family at bedside all day, and has assisted prompting at meal times.
--- NOTE | 2016-06-15 18:11 | PCM.PNMED ---
Subjective Date of Service Jun 15, 2016 Subjective Patient medically stable. Voracious appetite today, eating 90% of meals. No nausea. [facility] facility however, would like to see a sustain eating pattern while on Olanzapine. Anticipate discharge by tomorrow or saturday Exam Vital Signs Vital Sign - Last Date Time Temp Pulse Resp B/P Pulse Ox O2 Delivery O2 Flow Rate FiO2 06/15/16 14:09 16 116/75 95 Room Air 06/15/16 13:28 36.4 06/15/16 11:24 83 06/10/16 16:27 1.00 Intake and Output 06/14/16 06/14/16 06/15/16 Cumulative From/Thru 15:00 23:00 07:00 05/31/16 15:20 - 06/15/16 06:53 Intake Total 500 ml 450 ml 200 ml 75567 ml Output Total 400 ml 10 ml 0 ml 09331 ml Balance 100 ml 440 ml 200 ml -6015 ml Intake Oral 500 ml 450 ml 200 ml 5543 ml IV Total 94596 ml Tube Feeding 600 ml FFP 1047 ml Tube Irrigant 1084 ml Output Urine Total 400 ml 45075 ml Stool Total 0 ml 10 ml 0 ml 6670 ml Emesis 850 ml # Voids 5 1 2 16 # Bowel Movements 3 Exam GEN: pleasant, eating, remembers family HEENT: sclerae anicteric, moist mucosa RESP: b/l air sound, no wheezes, mild crackles at bases. CARDIO: Regular rate and rhythm, no murmur ABD: BS present, tenderness to palpation at LLQ, Colostomy with stool in bag at lower left with no signs of irritation Extremities: No edema Neuro: Oriented to self. Psych:Normal mood and affect. IVs and Medications Medications Reviewed: Medications were reviewed in detail Lab and Diagnostics Result Diagram: 06/15/16 0600 06/15/16 0600 X-Rays, CTs and MRIs PROCEDURE: CT ABDOMEN AND PELVIS WITH CONTRAST ([id number]) COMPARISON: [facility], CR, ABDOMEN 1 VIEW, 05/20/2016, 9:54. [facility], CT, ABDOMEN/PELVIS WITH CONTRAST, 05/17/2016, 15:26. [facility] , CR, ABDOMEN ACUTE SERIES, 05/17/2016, 12:47. [facility], CT, ABDOMEN/ PELVIS WITH CONTRAST, 03/19/2016, 12:30. [facility], CT, ABDOMEN/PELVIS WITH CONTRAST, 03/17/2016, 13:32. [facility], CT, ABDOMEN/PELVIS WITH CONTRAST, 02/09/2015, 10:15. [facility], RG, CT ABDOMEN/PELVIS WITH CONTRAST, 08/13/2004, 22:58. IMPRESSION: #1. Postsurgical changes compatible with partial colectomy and left lower quadrant colostomy formation. 2. No free intraperitoneal fluid or air. 3. No dilated loops of bowel. 4. Atherosclerosis including the coronary vasculature. 5. Bilateral pleural effusions. 6. Bibasilar lung consolidation which could represent compressive atelectasis, however infectious process cannot be excluded please correlate with clinical and laboratory data. 7. Bilateral adnexal cysts. 8. No evidence of abscess. 9. Hepatic steatosis. Dictated by: Coleen Laughlin MD, PhD on 05/31/2016 at 18:12 PROCEDURE: X-RAY KUB ([id number]) IMPRESSION: Nasogastric tube is now present, with tip in the gastric body. Dictated by: Kevyn Das M.D. on 06/04/2016 at 17:37 PROCEDURE: CT ABDOMEN AND PELVIS WITH CONTRAST ([id number]) IMPRESSION: 1. Small bowel obstruction, new since the prior examination. No focal transition point. 2. No change in bilateral adnexal cysts; further assessment with ultrasound is recommended. 3. Decreased bibasilar pleural-parenchymal opacities. Dictated by: Laura Howard M.D. on 06/07/2016 at 13:56 PROCEDURE: NM HIDA SCAN WITH CCK IMPRESSION: Normal examination and gallbladder ejection fraction Dictated by: Denis Moses M.D. on 06/11/2016 at 14:50 . Cardiac Echo Impressions Echocardiogram Report Name: MAXI AGUIAR Study Date: 06/01/2016 Interpretation Summary 1. Normal left ventricular size and wall thickness with overall preserved systolic function. 2. Normal right ventricular size and systolic function. 3. No significant valvular pathology appreciated. 4. Bilateral pleural effusions . Additional Diagnostics PROCEDURE: Esophagogastroduodenoscopy. INDICATION: Chronic nausea and abdominal pain. IMPRESSION: Aphthous ulcer 28 cm, otherwise normal-appearing exam. Normal exam from the esophagus to second portion of the duodenum. Multiple random biopsies were not obtained throughout the antrum and gastric body as there was more than expected bleeding with a single biopsy that was obtained to evaluate for H. pylori. Mc Chisholm MD 06/09/16 1405 Date of Service: 06/11/16 1158 PROCEDURE: NM HIDA SCAN WITH CCK IMPRESSION: Normal examination and gallbladder ejection fraction Dictated by: Denis Moses M.D. on 06/11/2016 at 14:50 . Date of Service: 06/13/16 0900 PROCEDURE: X-RAY UPPER GI WITH GASTROGRAPHIN AND SMALL BOWEL FOLLOW-THROUGH ( [id number]) INDICATIONS: Nausea/vomiting, abdominal pain IMPRESSION: Limited Gastrografin examination demonstrating grossly normal upper GI series and small bowel follow-through. Dictated by: Yuval Byrne RRA Interpreted: Lizbeth Harris MD on 06/13/2016 at 11: 33 Assessment & Plan Patient is an 89-year-old female with history of diverticulitis s/p partial colectomy with colostomy, dementia, atrial fibrillation presenting with cough and dyspnea and admitted for pneumonia and acute CHF exacerbation. Acute, and/or high risk problems: #. Persistent chronic nausea, with anorexia. Improving - Repeat CT scan on 06/07 suggested possible partial SBO, abx stopped due to no clinical symptoms of SBO - Upper endoscopy performed 06/09 shows no significant pathology - HIDA scan is negative on 06/11. - Continue Phenergan PRN - No acute findings to date, highly suspicious for worsening dementia attributing to symptoms - Upper GI series and small bowel follow-through, normal - Discontinued Zofran and Reglan as these have not been effective. - Appreciate GI consult with time and expertise Gastric emptying study pending. consider referral to Geriatric neuropsychiatrist if remaining studies are negative Follow up with Dr. Chavis in 4 weeks - Appreciate palliative consult with time and expertise Started on olanzapine and dexamethasone for nausea with good results - NG tube DC'd, encourage PO intake #. Acute hypoxemic respiratory failure secondary to influenza A. Present on admission. Resolved. - CXR revealed right pleural effusion and patchy atelectasis versus infiltrate. - Influenza treated with Tamiflu - ProBNP was 5749 on 05/31 with no signs of fluid overload #. Severe protein caloric malnutrition. - NG tube DC's, encourage PO intake #. Acute on chronic diastolic CHF exacerbation. Present on admission. Improved. - Holding Lasix at present Resolved, stable and or chronic problems: #. History of diverticulitis s/p hemicolectomy. Present on admission. Presumed stable. Initial CT scan was unremarkable without evidence of anastomosis breakdown or diverticuli or diverticulitis. Her colectomy does not seem related to her persistent nausea and anorexia. No SBO clinically. - Follow bowel function clinically. #. History of C. difficile toxin colitis. #. Hypertension, chronic. Present on admission - Continue home losartan, carvedilol #. Atrial fibrillation, chronic. Present on admission. Heart rate feeds paced at 80 bpm. -PT/INR in AM -Warfarin resumed after her EGD #. Dyslipidemia, chronic. Present on admission - Holding home statin present #. Dementia, chronic. Present on admission DVT prophy: Anticoagulated on warfarin GI prophy: H2 philip CODE: Limited interventions Dispo: Anticipate discharge to [facility] in 1-2 days, once patient is tolerating oral intake. GI Prophylaxis: H2 philip VTE Prophylaxis: Theraputic Anticoag with Warfarin VTE Mechanical Devices: Intermittant Pneumatic CD, Venous Foot Pump Resuscitation Status: Limited Interventions Limited Interventions: Cardioversion/Defibrillation, Intubation w Mech Vent, BiPAP, Medications and IV Fluid Time spent 25 minutes Attending Statement I have seen and evaluated patient at bedside in addition to directly supervising care provided by resident physician. I agree with above documentation. Bhavik Palacios DO Jun 15, 2016 18:11 Jean Cruz DO Jun 16, 2016 12:03
[2016-06-15 22:09] VITALS: BP 149/76; PULSE 80; RESP 18; O2SAT 96
[2016-06-16 05:22] VITALS: BP 164/83; PULSE 80; RESP 16; O2SAT 95
[2016-06-16 08:21] LABS: Mean Corpuscular Hemoglobin 29.2 pg (27.0-35.0); Mean Corpuscular Volume 92.8 fL (81-100)
[2016-06-16 08:34] LABS: INR 3.81 ratio
--- NOTE | 2016-06-16 09:00 | NUR ---
RAGHAVENDRA signed MAN Lynn
[2016-06-16] MEDS: Nystatin 100,000 Unit/mL 5 mL Suspension PO SCH ×2 (09:53→13:03)
[2016-06-16] MEDS: Dexamethasone 4 mg/mL Inj IVPUSH SCH (09:53)
[2016-06-16] MEDS: OLANZapine Zydis ODT 5 mg Tablet PO SCH (09:54)
--- NOTE | 2016-06-16 10:46 | PCM.DIMED ---
Vasyl Ramirez DO 06/15/16 1006: Discharge Instructions Date of Service Jun 16, 2016 Dates of Hospitalization May 31, 2016 at 19:49 Discharge Diagnosis Discharge Diagnosis Persistent chronic nausea, with anorexia. Improving Acute hypoxemic respiratory failure secondary to influenza A. Present on admission. Resolved. Severe protein caloric malnutrition. Acute on chronic diastolic CHF exacerbation. Present on admission. Improved. History of diverticulitis s/p hemicolectomy. Present on admission. Presumed stable. Initial CT scan was unremarkable without evidence of anastomosis breakdown or diverticuli or History of C. difficile toxin colitis. Hypertension, chronic. Present on admission Atrial fibrillation, chronic. Present on admission. Heart rate feeds paced at 80 bpm. Dyslipidemia, chronic. Present on admission Dementia, chronic. Present on admission Medication Instructions New medications to possibly help with nausea: Olanzapine 5mg take by mouth twice daily Dexamethasone 2mg take by mouth daily Diet Heart Healthy Activity Other (inpatient rehab) Call your provider Fever or Chills, Chest pain, Vomitting Patient Instructions Follow-up plan Patient to be discharged to [facility]. Follow-up Provider: Cori Wu DO Follow-up with PCP in: 2 weeks (as needed) Jean Cruz DO 06/16/16 1501: Discharge Instructions Attending's Statement Read and agree Vasyl Ramirez DO Jun 15, 2016 10:06 Jean Cruz DO Jun 16, 2016 15:01
--- NOTE | 2016-06-16 10:54 | PCM.DC.MED ---
Discharge Summary Date of Service Jun 16, 2016 Dates of Hospitalization Date of Hospital Admission May 31, 2016 at 19:49 Date of Discharge: Jun 16, 2016 Providers: Admitting Physician: Hector Espinosa MD Primary Care Physician: Cori Wu DO Attending Physician: Hector Espinosa MD Diagnosis at Time of Discharge Diagnosis at Time of Discharge Persistent chronic nausea, with anorexia. Improving Acute hypoxemic respiratory failure secondary to influenza A. Present on admission. Resolved. Severe protein caloric malnutrition. Acute on chronic diastolic CHF exacerbation. Present on admission. Improved. History of diverticulitis s/p hemicolectomy. Present on admission. Presumed stable. Initial CT scan was unremarkable without evidence of anastomosis breakdown or diverticuli or History of C. difficile toxin colitis. Hypertension, chronic. Present on admission Atrial fibrillation, chronic. Present on admission. Heart rate feeds paced at 80 bpm. Dyslipidemia, chronic. Present on admission Dementia, chronic. Present on admission Consultations GI: Ld Chavis MD, Mc Ramírez MD Palliative: Jv Cha MD Procedures XRay, CTs & MRIs PROCEDURE: CT ABDOMEN AND PELVIS WITH CONTRAST ([id number]) COMPARISON: Formerly [facility], CR, ABDOMEN 1 VIEW, 05/20/2016, 9:54. Formerly [facility], CT, ABDOMEN/PELVIS WITH CONTRAST, 05/17/2016, 15:26. Formerly [facility] , CR, ABDOMEN ACUTE SERIES, 05/17/2016, 12:47. Formerly [facility], CT, ABDOMEN/ PELVIS WITH CONTRAST, 03/19/2016, 12:30. Formerly [facility], CT, ABDOMEN/PELVIS WITH CONTRAST, 03/17/2016, 13:32. Formerly [facility], CT, ABDOMEN/PELVIS WITH CONTRAST, 02/09/2015, 10:15. Formerly [facility], RG, CT ABDOMEN/PELVIS WITH CONTRAST, 08/13/2004, 22:58. IMPRESSION: #1. Postsurgical changes compatible with partial colectomy and left lower quadrant colostomy formation. 2. No free intraperitoneal fluid or air. 3. No dilated loops of bowel. 4. Atherosclerosis including the coronary vasculature. 5. Bilateral pleural effusions. 6. Bibasilar lung consolidation which could represent compressive atelectasis, however infectious process cannot be excluded please correlate with clinical and laboratory data. 7. Bilateral adnexal cysts. 8. No evidence of abscess. 9. Hepatic steatosis. Dictated by: Coleen Laughlin MD, PhD on 05/31/2016 at 18:12 PROCEDURE: X-RAY KUB ([id number]) IMPRESSION: Nasogastric tube is now present, with tip in the gastric body. Dictated by: Kevyn Das M.D. on 06/04/2016 at 17:37 PROCEDURE: CT ABDOMEN AND PELVIS WITH CONTRAST ([id number]) IMPRESSION: 1. Small bowel obstruction, new since the prior examination. No focal transition point. 2. No change in bilateral adnexal cysts; further assessment with ultrasound is recommended. 3. Decreased bibasilar pleural-parenchymal opacities. Dictated by: Laura Howard M.D. on 06/07/2016 at 13:56 PROCEDURE: NM HIDA SCAN WITH CCK IMPRESSION: Normal examination and gallbladder ejection fraction Dictated by: Denis Moses M.D. on 06/11/2016 at 14:50 . Cardiac Echo Impression Echocardiogram Report Name: MAXI AGUIAR Study Date: 06/01/2016 Interpretation Summary 1. Normal left ventricular size and wall thickness with overall preserved systolic function. 2. Normal right ventricular size and systolic function. 3. No significant valvular pathology appreciated. 4. Bilateral pleural effusions . Other Diagnostics PROCEDURE: Esophagogastroduodenoscopy. INDICATION: Chronic nausea and abdominal pain. IMPRESSION: Aphthous ulcer 28 cm, otherwise normal-appearing exam. Normal exam from the esophagus to second portion of the duodenum. Multiple random biopsies were not obtained throughout the antrum and gastric body as there was more than expected bleeding with a single biopsy that was obtained to evaluate for H. pylori. Mc Chisholm MD 06/09/16 0805 Date of Service: 06/11/16 1158 PROCEDURE: NM HIDA SCAN WITH CCK IMPRESSION: Normal examination and gallbladder ejection fraction Dictated by: Denis Moses M.D. on 06/11/2016 at 14:50 . Date of Service: 06/13/16 0900 PROCEDURE: X-RAY UPPER GI WITH GASTROGRAPHIN AND SMALL BOWEL FOLLOW-THROUGH ( [id number]) INDICATIONS: Nausea/vomiting, abdominal pain IMPRESSION: Limited Gastrografin examination demonstrating grossly normal upper GI series and small bowel follow-through. Dictated by: Yuval Byrne Layla Interpreted: Lizbeth Harris MD on 06/13/2016 at 11: 33 Brief History Per prior note: Patient is an 89-year-old female with history of diverticulitis s/p recent partial colectomy now with colostomy, dementia, and atrial fibrillation who presented with persistent nausea, shortness of breath,productive cough, and respiratory distress, and was admitted for acute hypoxemic respiratory failure and possible pneumonia. The respiratory failure resolved but her nausea continued to be an issue. She states that her nausea has actually been going back even before her C. difficile diarrhea, diagnosed in 04/27/16 (possibly as early as 09/09). C. difficile toxin PCR during this admission was negative. CT abd/pelvis with contrast on 05/31/16 showed postsurgical changes of the partial colectomy and colostomy and hepatic steatosis, but no free intraperitoneal fluid or air, no dilated loops of bowel, and no other anatomic explanation for GI complaints. Her ostomy has been functioning and there is no apparent ileus on plain film. All antibiotics have now been stopped and she continues to have persistent nausea. According to her , she has been eating very poorly for the last 8 months and has been becoming progressively weaker. She reports generalized continuous abdominal pain somewhat worse in bilateral upper quadrants and persistent nausea with occasional vomiting. She denies blood in her stool. She denies fevers, chills, shortness of breath, coughing, wheezing. She denies NSAID use. She reports she has not had a colonoscopy in several years , possibly more than 10. She cannot remember the results of her last colonoscopy. Her father had colon cancer, diagnosed in his 50s. Brother with stomach cancer. Hospital Course Patient is an 89-year-old female with history of diverticulitis s/p partial colectomy with colostomy, dementia, atrial fibrillation presenting with cough and dyspnea and admitted for pneumonia and acute CHF exacerbation. Cough and dyspnea cleared soon after hospitalization. Patient had thorough work up for her acute on chronic persistent nausea, with no etiology found. Patient clinically improved upon starting daily Zyprexa and Dexamethasone. Able to consume and tolerate 85-90% of regular meals for the past 24hours. Due to liver enzyme elevation, Dexamethasone was to be discontinued and Zyprexa to be decreased from BID to daily dosing. - Hospitalist Dr. Cruz confirmed this change via doc-to-doc call with receiving [facility] doctor, Dr. Velez. Acute, and/or high risk problems: #. Persistent chronic nausea, with anorexia. Improving - Repeat CT scan on 06/07 suggested possible partial SBO, abx stopped due to no clinical symptoms of SBO - Upper endoscopy performed 06/09 shows no significant pathology - HIDA scan is negative on 06/11. - Continue Phenergan PRN - No acute findings to date, highly suspicious for worsening dementia attributing to symptoms - Upper GI series and small bowel follow-through, normal - Discontinued Zofran and Reglan as these have not been effective. - Appreciate GI consult with time and expertise Gastric emptying study pending. consider referral to Geriatric neuropsychiatrist if remaining studies are negative Follow up with Dr. Chavis in 4 weeks - Appreciate palliative consult with time and expertise Started on olanzapine and dexamethasone for nausea with good results - NG tube DC'd, encourage PO intake #. Acute hypoxemic respiratory failure secondary to influenza A. Present on admission. Resolved. - CXR revealed right pleural effusion and patchy atelectasis versus infiltrate. - Influenza treated with Tamiflu - ProBNP was 5749 on 05/31 with no signs of fluid overload #. Severe protein caloric malnutrition. - NG tube DC's, encourage PO intake #. Acute on chronic diastolic CHF exacerbation. Present on admission. Improved. - Holding Lasix at present Resolved, stable and or chronic problems: #. History of diverticulitis s/p hemicolectomy. Present on admission. Presumed stable. Initial CT scan was unremarkable without evidence of anastomosis breakdown or diverticuli or diverticulitis. Her colectomy does not seem related to her persistent nausea and anorexia. No SBO clinically. - Follow bowel function clinically. #. History of C. difficile toxin colitis. #. Hypertension, chronic. Present on admission - Continue home losartan, carvedilol #. Atrial fibrillation, chronic. Present on admission. Heart rate feeds paced at 80 bpm. -PT/INR in AM -Warfarin resumed after her EGD #. Dyslipidemia, chronic. Present on admission - Holding home statin present #. Dementia, chronic. Present on admission DVT prophy: Anticoagulated on warfarin GI prophy: H2 philip CODE: Limited interventions Exam Vital Signs (Last) Date Time Temp Pulse Resp B/P Pulse Ox O2 Delivery O2 Flow Rate FiO2 06/16/16 05:22 36.6 80 16 164/83 95 Room Air 06/10/16 16:27 1.00 Exam GEN: Patient sitting up in chair eating her breakfast. NAD. Pleasant and smiling. HEENT: sclerae anicteric, moist mucous membranes, thrush on tongue resolved RESP: Slight diffused crackles at lung bases CARDIO: Regular rate and rhythm, no murmur ABD: BS present, Colostomy with stool in bag at lower left with no signs of irritation Skin: suture line at low midline abdomen healing well, dry and intact Extremities: No edema Neuro: Oriented to self. Normal mood and affect. Test 05/31/16 15:05 05/31/16 18:01 05/31/16 20:38 05/31/16 21:06 Magnesium Level 1.7mg/dL (1.6-2.6) Troponin T < 0.010ug/L (0.0-0.011) Pro-B-Type Natriuretic Peptide 5749pg/mL (0-738) Lactic Acid Level 1.2mmol/L (0.4-2.0) Hold Chris Top Tube Received (Received) Urine Legionella pneumophilia Ag Negative (Negative) Test 06/11/16 02:30 06/11/16 18:40 06/13/16 06:05 06/16/16 07:00 Neutrophils (%) (Auto) 77.4% (40-74) Lymphocytes (%) (Auto) 9.7% (14-46) Monocytes (%) (Auto) 9.4% (4-12) Eosinophils (%) (Auto) 2.8% (0-5) Basophils (%) (Auto) 0.3% (0-3) Procalcitonin 0.17ng/mL (See Comment) Urine Color Bloody (YELLOW) Urine Appearance Turbid (CLEAR,HAZY) Urine pH 7.0 (5.0-8.0) Urine Specific [place] 1.020 (1.003-1.035) Urine Protein 30mg/dL (NEG,TRACE) Urine Glucose (UA) Negativemg/dL (NEGATIVE) Urine Ketones Tracemg/dL (NEGATIVE) Urine Occult Blood Large (NEGATIVE) Urine Nitrite Negative (NEGATIVE) Urine Bilirubin Negative (NEGATIVE) Urine Urobilinogen Normalmg/dL (NORMAL) Urine Leukocyte Esterase Negative (NEGATIVE) Urine RBC Packed/hpf (0-2) Urine WBC 0-5/hpf (0-5) Urine Epithelial Cells Occasional/hpf (NONE-MOD) Urine Crystals Oxalic acid crystals (NONE Urine Bacteria None/hpf (NONE-FEW) Urine Hyaline Casts None/lpf (NONE) Urine Granular Casts None seen (NONE SEEN) Urine Waxy Casts None seen (NONE SEEN) Urine Red Blood Cell Casts None seen (NONE SEEN) Urine White Blood Cell Casts None seen (NONE SEEN) Urine Mucus None seen (None Seen) Urine Trichomonas None seen (NONE SEEN) Urine Yeast None (NONE SEEN) Urinalysis Comment None Urine Culture Reflexed Not indicated Hold Urine Received (Received) Lipase 69U/L (13-60) White Blood Count 8.1th/mm3 (3.8-10.1) Red Blood Count 3.60mil/mm3 (3.90-5.20) Hemoglobin 10.5g/dL (12.0-15.6) Hematocrit 33.4% (35.0-46.0) Mean Corpuscular Volume 92.8fL (81-100) Mean Corpuscular Hemoglobin 29.2pg (27.0-35.0) Mean Corpuscular Hemoglobin Concent 31.4% (32.0-37.0) Red Cell Distribution Width 15.2% (12.3-15.4) Platelet Count 306bil/L (150-400) Prothrombin Time 41.9sec (8.1-12.5) Prothromb Time International Ratio 3.81ratio Sodium Level 140mEq/L (134-144) Potassium Level 4.3mEq/L (3.5-5.2) Chloride Level 102mEq/L (97-108) Carbon Dioxide Level 25mmol/L (18-29) Blood Urea Nitrogen 18mg/dL (8-27) Creatinine 0.78mg/dL (0.57-1.00) Estimat Glomerular Filtration Rate 100mL/min (>59) Glucose Level 111mg/dL (60-99) Calcium Level 9.4mg/dL (8.5-10.1) Total Bilirubin 0.3mg/dL (0.0-1.2) Aspartate Amino Transf (AST/SGOT) 215U/L (0-50) Alanine Aminotransferase (ALT/SGPT) 246U/L (0-32) Alkaline Phosphatase 57U/L (25-165) Total Protein 6.2g/dL (6.4-8.4) Albumin 3.5g/dL (3.4-5.0) Discharge Medications Discharge Medications Carvedilol (Carvedilol) 25 Mg Tablet 25 MG PO BID (Reported) Cetirizine HCl (24Hour Allergy) 10 Mg Tablet 10 MG PO DAILY (Reported) Ciprofloxacin (Cipro) 500 Mg Tablet 500 MG PO BID (Reported) Latanoprost (Latanoprost) 2.5 Ml Drops 1 DROP AFFECT_EYE HS (Reported) Losartan Potassium (Losartan Potassium) 25 Mg Tablet 25 MG PO BID (Reported) Metronidazole (Flagyl) 500 Mg Tablet 500 MG PO TID (Reported) Olanzapine ODT (Zyprexa Zydis) 5 Mg Tablet 5 MG PO DAILY Prescribed by: VASYL RAMIREZ DO Oxybutynin Chloride ER (Oxybutynin Chloride ER) 10 Mg Tab.er.24 10 MG PO DAILY ( Reported) Pravastatin (Pravastatin) 40 Mg Tablet 40 MG PO DAILY (Reported) Ranitidine (Ranitidine) 300 Mg Tablet 300 MG PO DAILY (Reported) Rivastigmine (Rivastigmine) 13.3 Mg/24 Hour Patch.td24 1 PATCH TD DAILY ( Reported) Trazodone (Trazodone) 50 Mg Tablet 50 MG PO HS (Reported) As needed ([Auralgan]) 14 ML AFFECT_EAR Q4H PRN PRN For Pain (Reported) Acetaminophen (Acetaminophen) 325 Mg Tablet 650 MG PO Q4H PRN PRN fever/pain ( Reported) Hydrocodone-Acetaminophen 5-325 mg (Hydrocodone-Acetaminophen 5-325 mg) 1 Each Tablet 1 TAB PO Q6H PRN PRN For Pain (Reported) Ondansetron ODT (Ondansetron ODT) 4 Mg Tab.rapdis 8 MG PO Q6H PRN PRN For Nausea (Reported) Additional med instructions New medications to possibly help with nausea: Olanzapine 5mg take by mouth twice daily Dexamethasone 2mg take by mouth daily Followup Plan Follow-up plan Patient to be discharged to [facility]. Discharge Diet: Heart Healthy Discharge Activity: Other (inpatient rehab) Follow-up Provider: Cori Wu DO Follow-up with PCP in: 2 weeks (as needed) Time spent 45 minutes Attending Statement I have seen and evaluated patient at bedside and directly supervised care provided by resident physician. I agree with above documentation. Vasyl Ramirez DO Jun 16, 2016 10:54 Jean Cruz DO Jun 16, 2016 15:03
--- NOTE | 2016-06-16 12:57 | NUR ---
Social Work: Discharge Data: Pt is on day 16 of hospitalization. EMR reviewed. D/C orders are in. FAMILY LAW SPECIALIST spoke with son and confirmed that pt can transport via cabulance and that if there is a private pay cost they are still agreeable. FAMILY LAW SPECIALIST spoke with [facility]ust[facility] Gonzalez who states that they can accept pt today and that they will set up transportation for 2:00pm. FAMILY LAW SPECIALIST requested MD call their MD for a Doc to Doc per request of Faustino. FAMILY LAW SPECIALIST notified UA and RN and family. No further d/c planning needs at this time. FAMILY LAW SPECIALIST will continue to follow if needs arise. Assessment: Pt with dementia. Plan: Pt will d/c to [facility] today at 2:00pm via cabulance. No further d/c planning needs at this time. FAMILY LAW SPECIALIST will continue to follow if needs arise. MAN Lynn
--- NOTE | 2016-06-16 14:05 | NUR ---
Discharge: Patient discharged to [facility] via transporter @ approx 1355. IV d/c'd intact. Personal belongings sent with family. Family present at time of transport. Report called to Elke @ [facility] @ 1400. No apparent distress at time of discharge.
[2016-06-16] MEDS ORDERED: OLAN5TAB25 PO (14:43)
== END 2016-06-16 13:55 | DRG 291 ==
LOC: SED 16:08 → PCC 19:49 → MPC 06-12 00:43
PROVIDERS: ADMIT Internal Medicine; ATTEND Internal Medicine
PROC: 4A033R1 Measurement of Arterial Saturation, Peripheral, Percutaneous Approach (ICD-10-PCS; 2016-05-31)
PROC: 0DB68ZX Excision of Stomach, Via Natural or Artificial Opening Endoscopic, Diagnostic (ICD-10-PCS; principal; 2016-06-09 11:30)
DX: I50.33 Acute on chronic diastolic (congestive) heart failure (principal); J96.01 Acute respiratory failure with hypoxia; E43 Unspecified severe protein-calorie malnutrition; J90 Pleural effusion, not elsewhere classified; K22.10 Ulcer of esophagus without bleeding; K86.1 Other chronic pancreatitis; J11.1 Influenza due to unidentified influenza virus with other respiratory manifestations; Z93.3 Colostomy status; F03.90 Unspecified dementia, unspecified severity, without behavioral disturbance, psychotic disturbance, mood disturbance, and anxiety; I10 Essential (primary) hypertension; I48.2 Chronic atrial fibrillation; E78.5 Hyperlipidemia, unspecified; Z68.23 Body mass index [BMI] 23.0-23.9, adult; R11.0 Nausea; R79.89 Other specified abnormal findings of blood chemistry